=== PATIENT | male | born 1950 | race Caucasian/White ===

== ENCOUNTER → 2017-11-06 | Outpatient (CLI) | payer BC ==
[2017-11-06 12:26] LABS: HGB 15.1 gm/dL (13.0-17.5); MCH 29.8 pg (25.0-35.0); MCHC 33.6 g/dL (31.0-37.0); MCV 88.7 fL (80.0-100.0); Mean Platelet Volume 7.7; Platelet Count 217 k/uL (150-450); RBC 5.07 m/uL (4.30-5.90); RDW 12.9 % (11.5-15.5); WBC 7.1 k/uL (3.8-10.6)
[2017-11-06 12:29] LABS: ALT 45 U/L (21-72); AST 45 U/L (17-59); Albumin 4.4 g/dL (3.5-5.0); Alkaline Phosphatase 54 U/L (38-126); Anion Gap 11 mmol/L; Blood Urea Nitrogen 13 mg/dL (9-20); Calcium 9.3 mg/dL (8.4-10.2); Carbon Dioxide 24 mmol/L (22-30); Chloride 106 mmol/L (98-107); Cholesterol 140 mg/dL (<200); Glucose 110 mg/dL (74-99); HDL Cholesterol 29 mg/dL (40-60); LDL Cholesterol,Calculated 98 mg/dL (0-99); Potassium 4.4 mmol/L (3.5-5.1); Sodium 141 mmol/L (137-145); Total Bilirubin 0.7 mg/dL (0.2-1.3); Total Protein 6.8 g/dL (6.3-8.2); Triglycerides 67 mg/dL (<150)
[2017-11-06 12:54] LABS: Prostate Specific Antigen 0.78 ng/mL (0.00-4.00)
[2017-11-06 16:40] LABS: Folate, Serum 18.8 ng/mL
[2017-11-06 16:56] LABS: Hepatitis C IgG Antibody Non-Reactive (Non-Reactive)
== END | disposition home or self-care (01) ==
LOC: LABWHC1 11:49
PROVIDERS: ATTEND Internal Medicine
DX: Z13.228 Encounter for screening for other metabolic disorders (principal); Z13.220 Encounter for screening for lipoid disorders; Z12.5 Encounter for screening for malignant neoplasm of prostate; Z13.0 Encounter for screening for diseases of the blood and blood-forming organs and certain disorders involving the immune mechanism; Z11.59 Encounter for screening for other viral diseases
CPT/HCPCS: 36415; 80053; 80061; 82607; 82746; 83540; 83550; 84153; 85027; 86803

== ENCOUNTER → 2018-05-21 | Outpatient (CLI) | payer MEDICARE | LOC: LABWHC1 08:34 | PROVIDERS: ATTEND Internal Medicine Cardiovascular Disease | DX: I25.10 Atherosclerotic heart disease of native coronary artery without angina pectoris (principal) | CPT/HCPCS: 36415; 83704 ==

== ENCOUNTER 2020-02-17 10:53 | Day surgery (SDC) | payer MEDICARE ==
[2020-02-12 15:25] VITALS: BMI 30.5
[~2020-02-17 10:53] MED LIST: ALPRAZolam 0.25 MG TAB PO PRN; ALPRAZolam 0.5 MG TAB PO PRN; ASPIRIN 325 MG TAB PO STA; NITROGLYCERIN SL TABS 0.4 MG TAB SUBLINGUAL PRN; SODIUM CHLORIDE 0.9% 1,000 ML in EMPTY BAG 1 BAG IV ONE
[2020-02-17] MEDS ORDERED: SODIUM CHLORIDE 0.9% 1,000 ML IV ONE (11:05)
[2020-02-17 11:30] LABS: Glucose,Whole Blood 121 mg/dL (75-99)
[2020-02-17 11:43] LABS: Basophils # (A) 0.1 k/uL (0-0.2); Basophils % (A) 1 %; Eosinophils # (A) 0.2 k/uL (0-0.7); Eosinophils % (A) 2 %; HCT 42.9 % (39.0-53.0); HGB 14.6 gm/dL (13.0-17.5); Lymphocytes % (A) 21 %; MCH 30.7 pg (25.0-35.0); MCV 90.2 fL (80.0-100.0); Mean Platelet Volume 7.6; Monocytes # (A) 0.5 k/uL (0-1.0); Monocytes % (A) 5 %; Neutrophils % (A) 71 %; Platelet Count 206 k/uL (150-450); RBC 4.75 m/uL (4.30-5.90); RDW 12.6 % (11.5-15.5); WBC 9.9 k/uL (3.8-10.6)
[2020-02-17 11:49] VITALS: RESP 18
[2020-02-17 12:19] LABS: African American GFR (CKD) >90 (>60 ml/min/1.73 sqM); Anion Gap 6 mmol/L; Blood Urea Nitrogen 10 mg/dL (9-20); Calcium 9.2 mg/dL (8.4-10.2); Carbon Dioxide 25 mmol/L (22-30); Chloride 106 mmol/L (98-107); Glucose 123 mg/dL (74-99); Non-African American GFR(CKD) 85 (>60 ml/min/1.73 sqM); Potassium 4.5 mmol/L (3.5-5.1); Sodium 137 mmol/L (137-145)
[2020-02-17] MEDS ORDERED: fentaNYL (PF) 50 MCG/ML 2 ML AMP ONE (12:58)
[2020-02-17] MEDS ORDERED: VERAPAMIL 2.5 MG/ML 2 ML AMP ONE (12:58)
[2020-02-17] MEDS ORDERED: LIDOCAINE 1% INJ 10MG/ML (20 ML MDV) ONE (12:58)
[2020-02-17] MEDS ORDERED: fentaNYL (PF) 50 MCG/ML 2 ML AMP IVP ONE (13:23)
[2020-02-17] MEDS ORDERED: MIDAZOLAM 2 MG/2 ML VIAL IVP ONE (13:23)
[2020-02-17] MEDS ORDERED: LIDOCAINE 1% INJ 10MG/ML (20 ML MDV) SQ ONE (13:25)
[2020-02-17] MEDS ORDERED: VERAPAMIL SYRINGE (5 MG/10 ML) INTRAARTER ONE (13:27)
[2020-02-17] MEDS ORDERED: HEPARIN SODIUM 1,000 UN/ML (10ML VL) IV ONE (13:31)
[2020-02-17] MEDS ORDERED: IOPAMIDOL-370 125ML BTL INJ ONE (13:51)
[2020-02-17] MEDS ORDERED: RX INFO: IV CONTRAST WAS GIVEN 1 EACH MISC MISCELLANE PRN (13:58)
--- NOTE | 2020-02-17 16:17 | P.CARDCATH ---
Date of Procedure: 02/17/20 Description of Procedure: PROCEDURES PERFORMED: bilateral coronary angiography INDICATION: Class III angina HISTORY: Patient is a pleasant 69-year-old male with history of coronary artery disease status post PCI in 2006 to the RCA, prior anemia, mildly reduced ejection fraction with most recent echo showing ejection fraction approximately 40%, [id number] mitral regurgitation who has been having new onset of chest pressure with fairly minimal activities over the last few months. He did have prior history of GI bleed in 2016 and non-ST at that time with heart catheterization showing RCA disease however no intervention performed due to acute bleed. He had been very doing fairly well until this new onset of angina. He was therefore recommended for heart catheterization. CONSENT:I have discussed the risks, benefits and alternative therapies for the above-mentioned procedure and for both sedation/analgesia as well as necessary blood product administration, if indicated, as they pertain to this patient. The patient has indicated understanding and acceptance of the risks and procedures discussed. PROCEDURE: After the risks, benefits and alternatives of the above mentioned procedure explained in detail with the patient, informed consent was obtained. Patient was taken to the catheterization lab and prepped and draped in usual fashion. 1% lidocaine was used to anesthetize the right radial artery. A 6- Palauan sheath was placed in the right radial artery using modified Seldinger technique. Left coronary angiography was performed with a 5-Palauan JL 3.5 catheter and right coronary angiography was performed with a 5-Palauan JR5 catheter in various views. The right radial sheath was removed and a TR band was placed with hemostasis achieved. The patient tolerated the procedure well. Patient was transported back to the post catheterization holding area in stable condition. Conscious Sedation: Patient was monitored under the direct supervision of vision of myself for conscious sedation using Versed and fentanyl for a total duration of 32 minutes HEMODYNAMICS: Aorta: 132/72. SELECTIVE CORONARY ARTERIOGRAPHY: LEFT MAIN: The left main is extremely short with nearly separate ostia however with subselective imaging and review of prior films there does appear to be a short left main. There is heavily calcified 70-80% left main stenosis involving both the LAD and circumflex origin. LEFT ANTERIOR DESCENDING CORONARY ARTERY: LAD is a large caliber vessel which wraps around to the apex. There is in origin heavily calcified proximal LAD 90- 95% stenosis. There is dampening with a 5-Palauan catheter. There is a moderate to large caliber diagonal 1 branch with mid 30% stenosis. The mid LAD has tandem 20% and then 30% mid and distal stenoses and otherwise minor luminal irregularities. LEFT CIRCUMFLEX CORONARY ARTERY: Left circumflex is a moderate to large caliber vessel heavily calcified ostial 80-90% stenosis. There is a high OM1 which is moderate caliber and with mild luminal irregularities. 1 to his moderate caliber without significant stenosis. OM3 has a proximal 50% stenosis. RIGHT CORONARY ARTERY: The right coronary artery is a moderate caliber vessel which gives off a PDA and PLV branch and is the dominant vessel. There is a long proximal to mid RCA stent with a 70% proximal in-stent stenosis. There are minor luminal irregularities of the remainder of the PDA and PLV. FINAL IMPRESSION: 1. Multivessel coronary artery disease as described above with nearly separate LAD and circumflex origin however with 90% stenosis of LAD origin and 80 and 90% circumflex origin. There does appear to be a common left main. OM 3 with 50% stenosis. RCA proximal 70% in-stent stenosis. PLAN: 1. Aggressive risk factor modification per most recent ACC/AHA guidelines. 2. Given heavily calcified ostial LAD and circumflex disease, would recommend CABG. There does appear to be a common left main which makes stenting of the origin a true bifurcation lesion. Stop Plavix and cardiothoracic surgery evaluation. Patient without unstable symptoms and appears to be stable coronary artery disease and we will discharge home with outpatient follow-up. 3. Follow-up in the office in 1-2 weeks.
[2020-02-17 16:38] LABS: Appearance,Urine Clear (Clear); Bilirubin,Urine Negative (Negative); Blood,Urine Negative (Negative); Color,Urine Light Yellow; Glucose,Urine (UA) Negative (Negative); Ketones,Urine Negative (Negative); Leukocyte Esterase,Urine Negative (Negative); Nitrite,Urine Negative (Negative); Protein,Urine Negative (Negative); Specific Gravity,Urine 1.032 (1.001-1.035); Urobilinogen,Urine <2.0 mg/dL (<2.0)
--- NOTE | 2020-02-17 17:11 | P.GSCN ---
History of Present Illness Consult date: 02/17/20 Reason for Consult: Unstable angina, multivessel coronary artery disease evaluation for myocardial revascularization surgery. Requesting physician: Adrian Hensley History of present illness: This is a 69-year-old gentleman who is followed by Dr. Blanquita Seth on an outpatient basis. He has a past medical history significant for a coronary artery disease,myocardial infarction in 2006 with [address] prior stent pl acement, hypertension, dyslipidemia, GI bleed with severe anemia, family history of coronary artery disease less than 60 years of age with his brother passing away in his early 40s due to myocardial infarction, remote history of nicotine dependence quit smoking in 1983, type 2 diabetes mellitus with recent hemoglobin A1c of 6.4%, and occasional marijuana use. Recently, the patient has had complaints of chest pressure which is relieved with rest, shortness of breath with activity and episodes of nausea and dizziness with the episodes of chest pressure. He denies any recent fever, chills, edema, orthopnea, palpitations presyncope or syncope. Due to the patient's history of coronary artery di seaseand recent symptoms a 2-D echocardiogram [facility] which demonstrated his left ventricle to be mildly dilated with moderately decreased systolic function, an ejection fraction of 40% with mild concentric hypertrophy, mild to moderate mitral valve regurgitation directed posteriorly, trace aortic valve regurgitation and mild to moderate tricuspid valve regurgitation. subsequently he was scheduled for a cardiac catheterization, and today 02/17/2020 Dr. Hensley performed the cardiac catheterization which showed a 70-80% stenosis to his left main involving both the origin of the left anterior descending coronary artery and circumflex coronary artery, a 90-95% stenosis to his proximal left anterior descending coronary artery, a 30% stenosis to his mid left anterior descending coronary artery, a 20-30% stenosis to his distal left anterior descending coronary a rtery, an 80-90% stenosis to his circumflex coronary artery, a 50% stenosis to his obtuse marginal #3 coronary artery and a 70% proximal in-stent stenosis to his right coronary artery. Due to the findings on the heart catheterization a consult was placed to Dr. Ramos Sanz from cardiothoracic surgery for further evaluation and treatment recommendations. Review of Systems A 14 point review of systems was completed and was negative except as mentioned in the HPI. Past Medical History Past Medical History: Coronary Artery Disease (CAD), Cancer, Diabetes Mellitus, GI Bleed, Hyperlipidemia, Hypertension, Myocardial Infarction ([place]) Additional Past Medical History / Comment(s): hx ulcer/GI bleed 2014, skin cancer Last Myocardial Infarction Date:: 06/2006 History of Any Multi-Drug Resistant Organisms: None Reported Past Surgical History: Heart Catheterization, Heart Catheterization With Stent, Hernia Repair, Orthopedic Surgery, Tonsillectomy Additional Past Surgical History / Comment(s): 3 cardiac STENTS, skin cancer removed from nose, surgery fx rt foot, Past Anesthesia/Blood Transfusion Reactions: Postoperative Nausea & Vomiting (PONV) Date of Last Stent Placement:: 06/13/2006 Past Psychological History: No Psychological Hx Reported Smoking Status: Former smoker (quit smoking in 1983) Past Alcohol Use History: None Reported Past Drug Use History: Marijuana (occasional marijuana use) - Past Family History Brother(s) Additional Family Medical History / Comment(s): pacemaker, one of his brothers in his early 40s from myocardial infarction. Father Family Medical History: Cancer Additional Family Medical History / Comment(s): stomach CA Mother Family Medical History: Congestive Heart Failure (CHF) Medications and Allergies Home Medications Medication Instructions Recorded Confirmed Type Losartan Potassium 100 mg PO DAILY 04/27/15 02/17/20 History amLODIPine [Norvasc] 5 mg PO BID 04/27/15 02/17/20 History Ferrous Sulfate [Iron (65 MG 65 mg PO DAILY 06/16/15 02/17/20 History Elemental)] Pantoprazole Sodium [Protonix] 40 mg PO DAILY 06/21/15 02/17/20 History Aspirin [Adult Low Dose Aspirin EC] 81 mg PO HS 02/12/20 02/17/20 History Ezetimibe [Zetia] 10 mg PO HS 02/12/20 02/17/20 History Isosorbide Mononitrate [Isosorbide 30 mg PO DAILY 02/12/20 02/17/20 History Mononitrate ER] Metoprolol Succinate [Toprol XL] 100 mg PO DAILY 02/12/20 02/17/20 History Rosuvastatin Calcium [Crestor] 20 mg PO HS 02/12/20 02/17/20 History metFORMIN HCL [Glucophage] 500 mg PO BID 02/12/20 02/17/20 History Allergies Allergy/AdvReac Type Severity Reaction Status Date / Time No Known Allergies Allergy Verified 02/12/20 15:12 Surgical - Exam Vital Signs Temp Pulse Resp BP Pulse Ox 98.2 F 63 18 165/72 96 02/17/20 11:45 02/17/20 11:45 02/17/20 11:45 02/17/20 11:45 02/17/20 11:45 - General well developed, well nourished, no distress, no pain, obese - Eyes PERRL, normal ocular movement - ENT normal pinna, normal nares, normal mucosa, no hearing loss, no congestion - Neck neck is supple, no JVD. no masses, no bruits, trachea midline, no venous distension - Respiratory lung sounds essentially clear throughout. No wheezes, rhonchi or crackles. Respirations are symmetrical and nonlabored. - Cardiovascular regular rhythm and rate. S1 and S2 present, negative for S3, gallop or murmur. - Abdomen abdomen is soft, nontender and nondistended. Active bowel sounds present all 4 abdominal quadrants. - Genitourinary deferred - Rectum deferred - Integumentary no rash, no growths, no abnormal pigmentation - Neurologic normal coordination, normal sensation - Musculoskeletal normal gait, normal posture - Psychiatric oriented to time, oriented to person, oriented to place, speech is normal, memory intact Results - Labs 02/17/20 11:30 02/17/20 11:48 Abnormal Lab Results - Last 24 Hours (Table) 02/17/20 02/17/20 Range/Units 11:20 11:48 Glucose 123 H (74-99) mg/dL POC Glucose (mg/dL) 121 H (75-99) mg/dL Diabetes panel 02/17/20 Range/Units 11:48 Sodium 137 (137-145) mmol/L Potassium 4.5 (3.5-5.1) mmol/L Chloride 106 (98-107) mmol/L Carbon Dioxide 25 (22-30) mmol/L BUN 10 (9-20) mg/dL Creatinine 0.92 (0.66-1.25) mg/dL Glucose 123 H (74-99) mg/dL Calcium 9.2 (8.4-10.2) mg/dL Calcium panel 02/17/20 Range/Units 11:48 Calcium 9.2 (8.4-10.2) mg/dL Pituitary panel 02/17/20 Range/Units 11:48 Sodium 137 (137-145) mmol/L Potassium 4.5 (3.5-5.1) mmol/L Chloride 106 (98-107) mmol/L Carbon Dioxide 25 (22-30) mmol/L BUN 10 (9-20) mg/dL Creatinine 0.92 (0.66-1.25) mg/dL Glucose 123 H (74-99) mg/dL Calcium 9.2 (8.4-10.2) mg/dL Adrenal panel 02/17/20 Range/Units 11:48 Sodium 137 (137-145) mmol/L Potassium 4.5 (3.5-5.1) mmol/L Chloride 106 (98-107) mmol/L Carbon Dioxide 25 (22-30) mmol/L BUN 10 (9-20) mg/dL Creatinine 0.92 (0.66-1.25) mg/dL Glucose 123 H (74-99) mg/dL Calcium 9.2 (8.4-10.2) mg/dL - Imaging Additional studies: cardiac catheterization and 2-D echocardiogram report reviewed and discussed with Dr. Ramos Sanz. Assessment and Plan Assessment: 1. Multivessel coronary artery disease 2. Unstable angina 3. Dyslipidemia 4. Hypertension 5. Diabetes mellitus type 2, recent hemoglobin A1c 6.4% 6. History of GI bleed 7. Remote history of tobacco abuse quit smoking in 1983 8. Occasional marijuana use. Plan: The patient was seen and examined at his bedside in the extended stay unit. His chart and diagnostics were reviewed. His case was discussed in detail with Dr. Ramos Sanz from cardiothoracic surgery. The usual preoperative course of myocardial revascularization surgery was discussed in detail with patient, and his present at his bedside. Their questions were answered to the best of my ability. Preoperative testing was initiated as well as preoperative teaching, the patient was given a binder heart surgery: Road to a healthy heart for further teaching. Continue with aggressive risk factor modification per recent ACC/AHA guidelines, continue to optimize medical management with aspirin, statinand beta jigna. Continue to hold Plavix at this time for evaluation for possible myocardial revascularization surgery. He will be scheduled to follow-up with Dr. Ramos Sanz in the office tomorrow 02/18/2020 at 4 PM. During his office visit we will obtain a 5 m walk test. Once his preoperative testing has been completed a STS risk score will be calculated and discussed with the patient by Dr. Sanz. Thank you Dr. Hensley for this consult and we look forward to working with you in the care of this patient. Time with Patient: Greater than 30
[2020-02-17 17:45] LABS: Glucose,Whole Blood 98 mg/dL (75-99)
[2020-02-17 18:07] VITALS: PULSE 56; TEMP 98.1
[2020-02-17 18:51] VITALS: BP 153/74
[2020-02-17 18:51] LABS: ALT 41 U/L (4-49); AST 38 U/L (17-59); African American GFR (CKD) >90 (>60 ml/min/1.73 sqM); Albumin 4.6 g/dL (3.5-5.0); Alkaline Phosphatase 56 U/L (38-126); Anion Gap 7 mmol/L; Blood Urea Nitrogen 10 mg/dL (9-20); Calcium 9.5 mg/dL (8.4-10.2); Carbon Dioxide 26 mmol/L (22-30); Chloride 105 mmol/L (98-107); Glucose 127 mg/dL (74-99); Non-African American GFR(CKD) 81 (>60 ml/min/1.73 sqM); Partial Thromboplastin Time 25.2 sec (22.0-30.0); Potassium 4.6 mmol/L (3.5-5.1); Prothrombin Time 10.5 sec (9.0-12.0); Sodium 138 mmol/L (137-145); Total Bilirubin 0.6 mg/dL (0.2-1.3); Total Protein 7.4 g/dL (6.3-8.2)
[2020-02-17 19:34] LABS: Cholesterol 120 mg/dL (<200); HDL Cholesterol 40 mg/dL (40-60); LDL Cholesterol,Calculated 56 mg/dL (0-99); Triglycerides 119 mg/dL (<150)
[2020-02-17 19:52] LABS: T4, Free (Free Thyroxine) 0.81 ng/dL (0.78-2.19)
[2020-02-18 02:30] LABS: Hemoglobin A1C 6.4 % (4.0-6.0)
[2020-02-18 03:54] LABS: Hepatitis A Antibody IgM Non-Reactive (Non-Reactive); Hepatitis B Core IgM Non-Reactive (Non-Reactive); Hepatitis B Surface Antigen Non-Reactive (Non-Reactive); Hepatitis C IgG Antibody Non-Reactive (Non-Reactive)
--- NOTE | 2020-02-18 07:39 | US ---
EXAMINATION TYPE: US carotid duplex BILAT DATE OF EXAM: 02/17/2020 COMPARISON: NONE CLINICAL HISTORY: Pre-Op Cardiac Surgery,Ankle Brachial Index (KANNAN) . Pre-Op CABG EXAM MEASUREMENTS: RIGHT: Peak Systolic Velocity (PSV) cm/sec ----- Right CCA: 94.8 ----- Right ICA: 126 ----- Right ECA: 195 ICA/CCA ratio: 1.3 RIGHT: End Diastole cm/sec ----- Right CCA: 14.3 ----- Right ICA: 26.5 ----- Right ECA: 0.0 LEFT: Peak Systolic Velocity (PSV) cm/sec ----- Left CCA: 93.0 ----- Left ICA: 111 ----- Left ECA: 139 ICA/CCA ratio: 1.2 LEFT: End Diastole cm/sec ----- Left CCA: 7.3 ----- Left ICA: 21.3 ----- Left ECA: 0.0 VERTEBRALS (direction of flow): Right Vertebral: Antegrade Left Vertebral: Antegrade Rhythm: Normal Mild atheromatous plaquing is present. There is borderline elevation of the right internal carotid ar charlie velocity. Turbulent flow is noted on Doppler waveforms. Some intimal thickening and turbulent fl ow is present on the left. IMPRESSION: 1. Mild narrowing between 50 and 69% proximal right internal carotid artery Criteria for Assigning % of Stenosis / Diameter reduction (Estimation based on the indirect measurements of the internal carotid artery velocities (ICA PSV). 1. Normal (no stenosis)=ICA PSV < 125 cm/s: ratio < 2.0: ICA EDV<40 cm/s. 2. Less than 50% stenosis=ICA PSV < 125 cm/s: ratio < 2.0: ICA EDV<40 cm/s. 3. 50 to 69% stenosis=ICA PSV of 125 to 230 cm/s: ration 2.0 ? 4.0: ICA EDV 40-100 cm/s. 4. Greater than 70% stenosis to near occlusion= ICA PSV > 230 cm/s: ratio > 4.0: ICA EDV > 100 cm/s. 5. Near occlusion= ICA PSV velocities may be low or undetectable: variable ratio and ICA EDV. 6. Total occlusion=unable to detect flow.
--- NOTE | 2020-02-18 10:10 | XR ---
EXAMINATION TYPE: XR chest 2V DATE OF EXAM: 02/17/2020 CLINICAL HISTORY: Preoperative cardiac surgery TECHNIQUE: Frontal and lateral views of the chest are obtained. COMPARISON: 04/27/2015 chest radiograph FINDINGS: The cardiomediastinal silhouette is within normal limits for size. Pulmonary vasculature i s normal. There is no focal air space opacity, pleural effusion, or pneumothorax seen. Degenerative c hanges of the spine. IMPRESSION: No acute cardiopulmonary process.
--- NOTE | 2020-02-24 12:57 | P.ARTDOP ---
Arterial Doppler LOWER EXTREMITY ARTERIAL DOPPLER: DATE OF SERVICE: 02/17/2020 Reason for study: Preop CABG. Doppler waveforms: Multiphasic throughout. Pulse volume recording: []. Pressure gradients: None. Ankle-brachial indices: Greater than 1 bilaterally. Toe brachial indices: [] on the right, [] on the left Impression: Normal study.
--- NOTE | 2020-02-24 12:59 | P.VSCSTY ---
Greater Saphenous Vein Mapping This is bilateral lower extremity greater saphenous vein mapping. Date of service: 02/17/2020 Vein quality and ultrasound appearance: We see no intraluminal thrombus or wall changes. Vein size groin right : 4.3 x 5.1 groin left: 4.3 x 4.5 High thigh right: 3.9 x 4.0 high thigh left: 2.9 x 2.7 Mid thigh right: 3.1 x 3.3 mid thigh left: 2.1 x 1.9 Above-knee right: 3.1 x 3.3 above- knee left: 1.6 x 1.1 Below knee right: 3.0 x 2.8 below-knee left: 2.2 x 1.7 Mid calf right: 2.9 x 2.7 mid calf left: 1.8 x 3.0 Ankle right: 2.9 x 3.1 ankle left: 2.0 x 2.3 Impression: Usable greater saphenous vein on the right. The upper thigh may be usable on the left and the very distal lower leg on the left may be usable. Clinical correlation recommended.
--- NOTE | 2020-03-11 15:39 | CONS ---
CONSULTATION ADDENDUM: 02/17/2020 Patient was examined. I agree with the above findings from my nurse practitioner. MMODL / IJN: [id number] /
--- NOTE | 2020-03-21 15:01 | CONS ---
CONSULTATION DATE OF CONSULTATION: 02/17/20 Patient was examined and I agree with the above findings from my nurse practicer. MMODL / IJN: [id number] / Job#: [id number]
== END 2020-02-17 18:53 | disposition home or self-care (01) ==
LOC: CATHCVL 10:53 → 3NCARDOBS 18:05 → CATHCVL 18:53
PROVIDERS: ATTEND Internal Medicine
DX: I25.110 Atherosclerotic heart disease of native coronary artery with unstable angina pectoris (principal); T82.855A Stenosis of coronary artery stent, initial encounter; I25.84 Coronary atherosclerosis due to calcified coronary lesion; I10 Essential (primary) hypertension; I49.8 Other specified cardiac arrhythmias; I08.3 Combined rheumatic disorders of mitral, aortic and tricuspid valves; I44.7 Left bundle-branch block, unspecified; E11.8 Type 2 diabetes mellitus with unspecified complications; E78.2 Mixed hyperlipidemia; Z87.891 Personal history of nicotine dependence; I25.2 Old myocardial infarction; Z87.19 Personal history of other diseases of the digestive system; Z82.49 Family history of ischemic heart disease and other diseases of the circulatory system; Z85.828 Personal history of other malignant neoplasm of skin; Z80.0 Family history of malignant neoplasm of digestive organs; Z79.84 Long term (current) use of oral hypoglycemic drugs; Z79.82 Long term (current) use of aspirin; Z79.899 Other long term (current) drug therapy
CPT/HCPCS: 94150; 93454; 84439; 80061; 80053; 80074; 84443; 83735; 85025; 85610; 85730; 81003; 87070; 83036; 71046; 93970; 93922; 93880; C1769; C1894; J2250; J2001; J3010; J1644; Q9967; 80048

== ENCOUNTER → 2020-02-19 | Outpatient (CLI) | payer MEDICARE | END | disposition home or self-care (01) | LOC: LABWHC1 13:31 | PROVIDERS: ATTEND Surgery | DX: Z20.828 Contact with and (suspected) exposure to other viral communicable diseases (principal) | CPT/HCPCS: U0003; C9803 ==

== ENCOUNTER 2020-02-24 05:32 | Inpatient (IN) | payer MEDICARE ==
--- NOTE | 2020-02-23 13:18 | P.PN ---
Progress Note - Text Progress Note Date: 02/23/20 STS risk score was calculated and discussed with the patient by Dr. Ramos Sanz.
[~2020-02-24 05:32] MED LIST changes: +ALBUMIN HUMAN 25% 50 ML IV ONE; -ALPRAZolam 0.25 MG TAB PO PRN; -ALPRAZolam 0.5 MG TAB PO PRN; -ASPIRIN 325 MG TAB PO STA; +CLEVIDIPINE BUTYRATE 25 MG in EMPTY BAG 1 BAG IV ONE; +DEXTROSE 5% IN WATER 1,000 ML with POTASSIUM CHLORIDE 110 MEQ, MAGNESIUM SULFATE 16 MEQ... IV ONE; +DEXTROSE 5% IN WATER 1,000 ML with POTASSIUM CHLORIDE 25 MEQ, SODIUM CHLORIDE 2.5MEQ/ML... IRRIGATION ONE; +DILTIAZEM 125 MG in SODIUM CHLORIDE 0.9% 100 ML IV ONE; +HEPARIN SODIUM 1,000 UN/ML (10ML VL) IV ONE; +HEPARIN SODIUM,PORCINE 5,000 UNIT in SODIUM CHLORIDE 0.9% 500 ML 500 ML IV ONE; +INSULIN REGULAR 100 UNIT in SODIUM CHLORIDE 0.9% 100 ML IV ONE; +LACTATED RINGERS 1,000 ML IV ONE; +MAGNESIUM SULFATE MG 500 MG/ML IV ONE; -NITROGLYCERIN SL TABS 0.4 MG TAB SUBLINGUAL PRN; +NITROGLYCERIN-D5W PMX 25 MG/250 ML BTL IV ONE; +NITROGLYCERIN-D5W PMX 50 MG in DEXTROSE/WATER 1 250ML.BAG IV ONE; +NOREPINEPHRINE 4 MG in SODIUM CHLORIDE 0.9% 250 ML IV ONE; +PAPAVERINE 360 MG in SODIUM CHLORIDE 0.9% 90 ML IV ONE; +PHENYLEPHRINE 40 MG in SODIUM CHLORIDE 0.9% 250 ML IV ONE; +PROTAMINE SULFATE 250 MG in EMPTY BAG 1 BAG IV ONE; +SODIUM BICARB 8.4% 50 ML SYR (1 MEQ/ML) IV ONE; +SODIUM CHLORIDE 0.9% 1,000 ML IV ONE; -SODIUM CHLORIDE 0.9% 1,000 ML in EMPTY BAG 1 BAG IV ONE; +TRANEXAMIC ACID 2,000 MG in SODIUM CHLORIDE 0.9% 80 ML IV ONE; +ceFAZolin 1,000 MG in SODIUM CHLORIDE 0.9% IRRIGATIO 1,000 ML IRRIGATION ONE; +ceFAZolin 2,000 MG in SODIUM CHLORIDE 0.9% 30 ML IVPB ONE; +propofoL 1,000 MG/100 ML VIAL IV ONE
[2020-02-24] MEDS ORDERED: CALCIUM CHLORIDE 100 MG/ML 10 ML SYRINGE IV ONE (06:00)
[2020-02-24] MEDS ORDERED: CHLORHEXIDINE GLUCONATE 15 ML CUP MUCOUS MEM ONE (06:00)
[2020-02-24] MEDS ORDERED: PHENYLEPHRINE 10 MG/ML VIAL IV ONE (06:00)
[2020-02-24] MEDS ORDERED: PROTAMINE SULFATE 10 MG/ML 25 ML VIAL IV ONE ×2 (06:00→07:31)
[2020-02-24] MEDS ORDERED: ATORVASTATIN 10 MG TAB PO ONE (06:00)
[2020-02-24] MEDS ORDERED: METOPROLOL TARTRATE 12.5 MG TAB PO ONE (06:00)
[2020-02-24] MEDS ORDERED: MANNITOL 25% 12.5 GM/50 ML VIAL IV ONE (06:00)
[2020-02-24] MEDS ORDERED: ALBUMIN HUMAN 5% 500 ML IVPB ONE (06:00)
[2020-02-24] MEDS ORDERED: ASPIRIN 325 MG TAB PO ONE (06:00)
[2020-02-24 06:27] LABS: Glucose,Whole Blood 105 mg/dL (75-99)
[2020-02-24] MEDS ORDERED: fentaNYL (PF) 50 MCG/ML 2 ML AMP ONE (07:31)
[2020-02-24] MEDS ORDERED: LIDOCAINE 2% SYG (PF) 100 MG/5 ML ONE (07:31)
[2020-02-24] MEDS ORDERED: INSULIN REGULAR 100 UNIT/ML VIAL ONE (07:31)
[2020-02-24] MEDS ORDERED: ELECTROLYTE-R (PH 7.4) 1,000 ML IV.SOLN IV ONE (07:31)
[2020-02-24] MEDS ORDERED: MIDAZOLAM 2 MG/2 ML VIAL ONE (07:31)
[2020-02-24] MEDS ORDERED: SODIUM CHLORIDE 0.9% IRRIG 1,000 ML BTL IRRIGATION ONE (07:31)
[2020-02-24] MEDS ORDERED: NITROGLYCERIN-D5W PMX 50 MG/250 ML BOTTLE IV ONE (07:31)
[2020-02-24] MEDS ORDERED: fentaNYL (PF) 50 MCG/ML 50 ML VIAL ONE (07:31)
[2020-02-24] MEDS ORDERED: SODIUM CHLORIDE 0.9% 250 ML BAG ONE (07:31)
[2020-02-24] MEDS ORDERED: MAGNESIUM SULFATE 4 MEQ/ML 10ML VIAL ONE (07:31)
[2020-02-24] MEDS ORDERED: HEPARIN SODIUM,PORCINE 10,000 UNIT/ML 1 ML VIAL ONE (07:31)
[2020-02-24] MEDS ORDERED: PHENYLEPHRINE-0.9% NACL SYG 1 MG/10 ML SYRINGE ONE (07:31)
[2020-02-24] MEDS ORDERED: TRANEXAMIC ACID 1,000 MG/10 ML VIAL ONE (07:31)
[2020-02-24] MEDS ORDERED: VECURONIUM 10 MG VIAL IV ONE (07:31)
[2020-02-24] MEDS ORDERED: SUCCINYLCHOLINE CHLORIDE 100 MG/5 ML SYR IV ONE (07:31)
[2020-02-24] MEDS ORDERED: PROPOFOL 10 MG/ML 20 ML VIAL IV ONE (07:31)
[2020-02-24 08:30] LABS: ABG Base Excess -0.4 mmol/L; ABG Glucose Whole Blood 132 mg/dL (75-99); ABG HCO3 25 mmol/L (21-25); ABG Hematocrit 41 % (34.0-46.0); ABG Ionized Calcium 4.8 mg/dL (4.5-5.3); ABG PCO2 44 mmHg (35-45); ABG PH 7.37 (7.35-7.45); ABG PO2 153 mmHg (83-108); ABG Potassium Whole Blood 4.2 mmol/L (3.4-4.5); ABG Sodium Whole Blood 141 mmol/L (135-146); ABG TCO2 26 mmol/L (19-24)
[2020-02-24 10:30] LABS: ABG Base Excess -0.6 mmol/L; ABG Glucose Whole Blood 107 mg/dL (75-99); ABG HCO3 26 mmol/L (21-25); ABG Hematocrit 39 % (34.0-46.0); ABG Ionized Calcium 4.8 mg/dL (4.5-5.3); ABG Lactic Acid Whole Blood 0.7 mmol/L (0.5-1.6); ABG Oxygen Saturation 99.5 % (94-97); ABG PCO2 48 mmHg (35-45); ABG PH 7.34 (7.35-7.45); ABG PO2 193 mmHg (83-108); ABG Potassium Whole Blood 3.9 mmol/L (3.4-4.5); ABG Sodium Whole Blood 141 mmol/L (135-146); ABG TCO2 27 mmol/L (19-24)
[2020-02-24 11:48] LABS: ABG Base Excess -0.1 mmol/L; ABG Glucose Whole Blood 158 mg/dL (75-99); ABG HCO3 25 mmol/L (21-25); ABG Hematocrit 32 % (34.0-46.0); ABG Ionized Calcium 4.4 mg/dL (4.5-5.3); ABG Lactic Acid Whole Blood 1.1 mmol/L (0.5-1.6); ABG Oxygen Saturation 99.7 % (94-97); ABG PCO2 42 mmHg (35-45); ABG PH 7.38 (7.35-7.45); ABG PO2 267 mmHg (83-108); ABG Potassium Whole Blood 4.9 mmol/L (3.4-4.5); ABG Sodium Whole Blood 137 mmol/L (135-146); ABG TCO2 26 mmol/L (19-24)
[2020-02-24 12:25] LABS: ABG Base Excess -1.3 mmol/L; ABG Glucose Whole Blood 148 mg/dL (75-99); ABG HCO3 25 mmol/L (21-25); ABG Hematocrit 30 % (34.0-46.0); ABG Ionized Calcium 4.4 mg/dL (4.5-5.3); ABG Lactic Acid Whole Blood 1.1 mmol/L (0.5-1.6); ABG Oxygen Saturation 99.7 % (94-97); ABG PCO2 46 mmHg (35-45); ABG PH 7.34 (7.35-7.45); ABG PO2 225 mmHg (83-108); ABG Potassium Whole Blood 4.4 mmol/L (3.4-4.5); ABG Sodium Whole Blood 136 mmol/L (135-146); ABG TCO2 26 mmol/L (19-24)
[2020-02-24 12:56] LABS: ABG Base Excess -0.7 mmol/L; ABG Glucose Whole Blood 129 mg/dL (75-99); ABG HCO3 24 mmol/L (21-25); ABG Hematocrit 31 % (34.0-46.0); ABG Ionized Calcium 4.4 mg/dL (4.5-5.3); ABG Lactic Acid Whole Blood 1.1 mmol/L (0.5-1.6); ABG Oxygen Saturation 99.7 % (94-97); ABG PCO2 41 mmHg (35-45); ABG PH 7.38 (7.35-7.45); ABG PO2 217 mmHg (83-108); ABG Potassium Whole Blood 4.4 mmol/L (3.4-4.5); ABG Sodium Whole Blood 137 mmol/L (135-146); ABG TCO2 26 mmol/L (19-24)
[2020-02-24 13:26] LABS: ABG Base Excess -0.7 mmol/L; ABG Glucose Whole Blood 132 mg/dL (75-99); ABG HCO3 24 mmol/L (21-25); ABG Hematocrit 30 % (34.0-46.0); ABG Ionized Calcium 4.4 mg/dL (4.5-5.3); ABG Lactic Acid Whole Blood 1.2 mmol/L (0.5-1.6); ABG Oxygen Saturation 99.7 % (94-97); ABG PCO2 41 mmHg (35-45); ABG PH 7.38 (7.35-7.45); ABG PO2 265 mmHg (83-108); ABG Potassium Whole Blood 4.4 mmol/L (3.4-4.5); ABG Sodium Whole Blood 137 mmol/L (135-146); ABG TCO2 26 mmol/L (19-24)
[2020-02-24] MEDS ORDERED: IPRATROPIUM-ALBUTEROL 3 ML NEB INHALATION PRN (15:17)
[2020-02-24] MEDS ORDERED: Potassium Replacement Protocol 1 EACH MISC MISCELLANE PRN (15:17)
[2020-02-24] MEDS ORDERED: ONDANSETRON 4 MG/2 ML VIAL IVP PRN (15:17)
[2020-02-24] MEDS ORDERED: Magnesium Replacement Protocol 1 EACH MISC MISCELLANE PRN (15:17)
[2020-02-24] MEDS ORDERED: hydrALAZINE HCL 20 MG/ML 1 ML VIAL IVP PRN (15:17)
[2020-02-24] MEDS ORDERED: METOCLOPRAMIDE 5 MG/ML 2 ML VIAL IVP PRN (15:17)
[2020-02-24] MEDS ORDERED: AMIODARONE 300 MG in DEXTROSE 5% IN WATER 250 ML IV PRN ×2 (15:17)
[2020-02-24] MEDS ORDERED: BENZOCAINE/MENTHOL LOZENG 1 EACH LOZENGE MUCOUS MEM PRN (15:17)
[2020-02-24] MEDS ORDERED: Phosphorus Replacement Protoco 1 EACH MISC MISCELLANE PRN (15:17)
[2020-02-24] MEDS ORDERED: DEXTROSE 5% IN WATER 100 ML with AMIODARONE 150 MG IV PRN (15:17)
[2020-02-24] MEDS ORDERED: AMIODARONE 360 MG in DEXTROSE 5% IN WATER 200 ML IV PRN ×2 (15:17)
[2020-02-24] MEDS ORDERED: MORPHINE SULFATE 2 MG/ML SYRINGE IVP PRN (15:17)
[2020-02-24] MEDS ORDERED: NITROGLYCERIN-D5W PMX 50 MG in DEXTROSE/WATER 1 250ML.BAG IV SCH (15:17)
[2020-02-24] MEDS: CLEVIDIPINE BUTYRATE 25 MG in EMPTY BAG 1 BAG IV SCH (15:40)
[2020-02-24] MEDS: MILRINONE-D5W PMX 20 MG in DEXTROSE/WATER 1 100ML.BAG IV SCH (15:40)
[2020-02-24 16:02] LABS: Glucose,Whole Blood 115 mg/dL (75-99)
[2020-02-24 16:14] LABS: Basophils % (A) 0 %; Eosinophils # (A) 0.1 k/uL (0-0.7); Eosinophils % (A) 1 %; HCT 38.2 % (39.0-53.0); HGB 12.4 gm/dL (13.0-17.5); Lymphocytes # (A) 1.5 k/uL (1.0-4.8); Lymphocytes % (A) 11 %; MCH 30.1 pg (25.0-35.0); MCHC 32.4 g/dL (31.0-37.0); Mean Platelet Volume 8.2; Monocytes # (A) 0.5 k/uL (0-1.0); Monocytes % (A) 4 %; Neutrophils # (A) 11.5 k/uL (1.3-7.7); Neutrophils % (A) 84 %; Platelet Count 153 k/uL (150-450); RBC 4.11 m/uL (4.30-5.90); RDW 13.5 % (11.5-15.5); WBC 13.7 k/uL (3.8-10.6)
[2020-02-24 16:18] LABS: Ionized Calcium 4.9 mg/dL (4.5-5.3)
[2020-02-24] MEDS: DEXMEDETOMIDINE/0.9% NACL(PMX) 400 MCG in EMPTY BAG 1 BAG IV SCH (16:19)
[2020-02-24 16:23] LABS: INR 1.1 (<1.2); Partial Thromboplastin Time 27.6 sec (22.0-30.0); Prothrombin Time 11.4 sec (9.0-12.0)
[2020-02-24 16:24] LABS: ALT 26 U/L (4-49); AST 56 U/L (17-59); African American GFR (CKD) >90 (>60 ml/min/1.73 sqM); Albumin 3.1 g/dL (3.5-5.0); Alkaline Phosphatase 37 U/L (38-126); Anion Gap 3 mmol/L; Blood Urea Nitrogen 12 mg/dL (9-20); Carbon Dioxide 25 mmol/L (22-30); Chloride 109 mmol/L (98-107); Glucose 117 mg/dL (74-99); Magnesium 2.6 mg/dL (1.6-2.3); Non-African American GFR(CKD) 88 (>60 ml/min/1.73 sqM); Potassium 4.4 mmol/L (3.5-5.1); Sodium 137 mmol/L (137-145); Total Bilirubin 1.3 mg/dL (0.2-1.3); Total Protein 5.1 g/dL (6.3-8.2)
[2020-02-24 16:29] LABS: ABG Base Excess -5.7 mmol/L; ABG HCO3 22 mmol/L (21-25); ABG PCO2 55 mmHg (35-45); ABG PH 7.22 (7.35-7.45); ABG PO2 153 mmHg (83-108); ABG TCO2 24 mmol/L (19-24)
[2020-02-24] MEDS: ALBUMIN HUMAN 5% 250 ML in EMPTY BAG 1 BAG IVPB PRN ×4 (16:30→20:22)
[2020-02-24 16:31] LABS: Allen Test Performed? no
[2020-02-24] MEDS ORDERED: METOPROLOL TARTRATE 5 MG/5 ML VIAL IVP STA ×2 (16:32→16:33)
--- NOTE | 2020-02-24 16:47 | XR ---
EXAMINATION TYPE: XR chest 1V portable DATE OF EXAM: 02/24/2020 COMPARISON: 02/17/2020 HISTORY: Postop cardiac surgery TECHNIQUE: FINDINGS: Endotracheal tube is 3 cm from the norberto. Right jugular catheter has the tip in the right pulmonary artery. There is some mild soft tissue air on the left lateral chest wall. There is a chest tube at the base of the heart at the left cardiac border. There is no heart failure. There is some m ild atelectasis at the lung bases. There are sternal wires. IMPRESSION: Mild atelectasis at the lung bases. No heart failure seen. No pneumothorax.
--- NOTE | 2020-02-24 16:50 | P.CNPUL ---
History of Present Illness Consult date: 02/24/20 Reason for consult: other (Status post CABG.) Chief complaint: Multivessel coronary artery disease, unstable angina. History of present illness: This is a 69-year-old white male with known history of coronary artery disease, previous LA in 2006, multiple prior stent placements, hypertension, dyslipidemia, history of GI bleeding with anemia, and strong family history of coronary artery disease premature, less than 60 years of age. Remote history of smoking quit smoking in 1983, occasional marijuana use, patient was seen recently by cardiology, and he underwent cardiac catheterization to evaluate symptoms of angina/unstable angina. His cardiac catheterization showed multivessel coronary artery disease, with 90% stenosis of LAD, 90% stenosis of circumflex, there was a, left main, obtuse marginal with 50%, and proximal RCA 70% in stent stenosis. Patient was advised aggressive risk factors modifications, and considering that the ostial LAD and circumflex disease noted to be heavily calcified, CABG was recommended. Today the patient underwent myocardial revascularization. Postoperatively, patient was on mechanical ventilation, and I was asked to see him on consultation. Preop spirometry showed that the patient had FEV1 of 86%, FEV1/FVC was normal. Postoperative chest x-ray showed no evidence of active disease, endotracheal tube, [place] catheter, and other tubes were noted to be in proper position patient is sedated, patient is now on clevidipine for elevated blood pressure, his also on milrinone and on nitroglycerin. Chest x-ray was reviewed ventilator settings were also reviewed and he is now on assist control mode of mechanical ventilation rate of 12 tidal volume is 550, FiO2 on the percent and PEEP of 5 ABG showed a pO2 of 153 pCO2 of 55 pH of 7.22, hence will increase rate up to 1 8. Review of Systems ROS unobtainable: due to endotracheal tube Past Medical History Past Medical History: Coronary Artery Disease (CAD), Cancer, Diabetes Mellitus, GI Bleed, Hyperlipidemia, Hypertension, Myocardial Infarction ([place]) Additional Past Medical History / Comment(s): hx ulcer/GI bleed 2014, skin cancer Last Myocardial Infarction Date:: 06/2006 History of Any Multi-Drug Resistant Organisms: None Reported Past Surgical History: Heart Catheterization, Heart Catheterization With Stent, Hernia Repair, Orthopedic Surgery, Tonsillectomy Additional Past Surgical History / Comment(s): 3 cardiac STENTS, skin cancer removed from nose, surgery fx rt foot, Past Anesthesia/Blood Transfusion Reactions: Postoperative Nausea & Vomiting (PONV) Additional Past Anesthesia/Blood Transfusion Reaction / Comment(s): states "no problems with prior blood transfusions in 2014" Date of Last Stent Placement:: 06/13/2006 Smoking Status: Former smoker - Past Family History Brother(s) Additional Family Medical History / Comment(s): pacemaker, one of his brothers in his early 40s from myocardial infarction. Father Family Medical History: Cancer Additional Family Medical History / Comment(s): stomach CA Mother Family Medical History: Congestive Heart Failure (CHF) Medications and Allergies Home Medications Medication Instructions Recorded Confirmed Type Losartan Potassium 100 mg PO DAILY 04/27/15 02/24/20 History amLODIPine [Norvasc] 5 mg PO BID 04/27/15 02/24/20 History Ferrous Sulfate [Iron (65 MG 65 mg PO DAILY 06/16/15 02/24/20 History Elemental)] Pantoprazole Sodium [Protonix] 40 mg PO BID 06/21/15 02/24/20 History Aspirin [Adult Low Dose Aspirin EC] 81 mg PO HS 02/12/20 02/24/20 History Ezetimibe [Zetia] 10 mg PO HS 02/12/20 02/24/20 History Isosorbide Mononitrate [Isosorbide 30 mg PO DAILY 02/12/20 02/24/20 History Mononitrate ER] Metoprolol Succinate [Toprol XL] 100 mg PO DAILY 02/12/20 02/24/20 History Rosuvastatin Calcium [Crestor] 20 mg PO HS 02/12/20 02/24/20 History metFORMIN HCL [Glucophage] 500 mg PO BID 02/12/20 02/24/20 History Clopidogrel [Plavix] 75 mg PO DAILY 02/23/20 02/24/20 History Mupirocin 2% Oint [Bactroban 2% 1 applic NASAL BID 02/23/20 02/24/20 History Oint] Aspirin 325 mg PO ONCE 02/24/20 02/24/20 History Allergies Allergy/AdvReac Type Severity Reaction Status Date / Time No Known Allergies Allergy Verified 02/24/20 05:58 Physical Exam Vitals: Vital Signs Temp Pulse Resp BP Pulse Ox 02/24/20 06:21 97.8 F 60 15 162/81 98 Intake and Output 02/24/20 02/24/20 02/24/20 06:59 14:59 22:59 Intake Total 34 Output Total 2049 Balance 34 -2049 Intake: IV 34 Output: Urine 550 Estimated Blood Loss 1500 Other: Weight 95.7 kg Physical Exam: Revealed 69-year-old white male on mechanical ventilation, sedated, in no distress. Head: Atraumatic, normocephalic. HEENT:[Neck is supple.] [No neck masses.] [No thyromegaly.] [No JVD.] End otracheal tube and orogastric tubes are intact. Chest: Symmetrical chest expansion [diminished breath sounds and crackles at the bases. No rhonchi and no wheezes. Cardiac Exam: Normal S1 and S2, no S3 gallop, positive pericardial rub. No murmur. Abdomen: [Soft, nontender, no megaly, no rebound, no guarding, normal bowel sounds.] Extremities: [No clubbing, no edema, no cyanosis.] Neurological Exam: Could not be assessed. Patient is sedated just came back up from the operating room. Psychiatric: Could not be assessed. Skin: No rashes Results - Laboratory Findings CBC and BMP: 02/24/20 16:10 02/24/20 16:10 ABG ABG pH 7.22 (7.35-7.45) L 02/24/20 16:22 ABG pCO2 55 mmHg (35-45) H 02/24/20 16:22 ABG pO2 153 mmHg (83-108) H 02/24/20 16:22 ABG O2 Saturation 99.0 % (94-97) H 02/24/20 16:22 PT/INR, D-dimer PT 11.4 sec (9.0-12.0) 02/24/20 16:10 INR 1.1 (<1.2) 02/24/20 16:10 Abnormal lab findings: Abnormal Labs 02/19/20 02/24/20 02/24/20 13:43 06:22 08:35 WBC RBC Hgb Hct Neutrophils # ABG pH ABG pCO2 ABG pO2 153 H ABG HCO3 ABG Total CO2 26 H ABG O2 Saturation 99.0 H ABG Hematocrit ABG Potassium ABG Ionized Calcium ABG Glucose 132 H Hemoglobin Chloride Glucose POC Glucose (mg/dL) 105 H Calcium Magnesium Alkaline Phosphatase Total Protein Albumin Arterial Blood Potassium Arterial Blood Glucose 132 H Crossmatch See Detail 02/24/20 02/24/20 02/24/20 10:35 11:53 12:30 WBC RBC Hgb Hct Neutrophils # ABG pH 7.34 L 7.34 L ABG pCO2 48 H 46 H ABG pO2 193 H 267 H 225 H ABG HCO3 26 H ABG Total CO2 27 H 26 H 26 H ABG O2 Saturation 99.5 H 99.7 H 99.7 H ABG Hematocrit 32 L 30 L ABG Potassium 4.9 H ABG Ionized Calcium 4.4 L 4.4 L ABG Glucose 107 H 158 H 148 H Hemoglobin 12.6 L 10.4 L 9.9 L Chloride Glucose POC Glucose (mg/dL) Calcium Magnesium Alkaline Phosphatase Total Protein Albumin Arterial Blood Potassium 4.9 H Arterial Blood Glucose 107 H 158 H 148 H Crossmatch 02/24/20 02/24/20 02/24/20 13:01 13:31 15:58 WBC RBC Hgb Hct Neutrophils # ABG pH ABG pCO2 ABG pO2 217 H 265 H ABG HCO3 ABG Total CO2 26 H 26 H ABG O2 Saturation 99.7 H 99.7 H ABG Hematocrit 31 L 30 L ABG Potassium ABG Ionized Calcium 4.4 L 4.4 L ABG Glucose 129 H 132 H Hemoglobin 10.0 L 9.9 L Chloride Glucose POC Glucose (mg/dL) 115 H Calcium Magnesium Alkaline Phosphatase Total Protein Albumin Arterial Blood Potassium Arterial Blood Glucose 129 H 132 H Crossmatch 02/24/20 02/24/20 02/24/20 16:10 16:10 16:22 WBC 13.7 H RBC 4.11 L Hgb 12.4 L Hct 38.2 L Neutrophils # 11.5 H ABG pH 7.22 L ABG pCO2 55 H ABG pO2 153 H ABG HCO3 ABG Total CO2 ABG O2 Saturation 99.0 H ABG Hematocrit ABG Potassium ABG Ionized Calcium ABG Glucose Hemoglobin Chloride 109 H Glucose 117 H POC Glucose (mg/dL) Calcium 8.0 L Magnesium 2.6 H Alkaline Phosphatase 37 L Total Protein 5.1 L Albumin 3.1 L Arterial Blood Potassium Arterial Blood Glucose Crossmatch - Diagnostic Findings Chest x-ray: image reviewed (As noted in HPI) Assessment and Plan Assessment: Impression: Status post CABG, postoperative day #1. Quadruple bypass surgery. History of type 2 diabetes. History of previous LA. Dyslipidemia. Benign essential hypertension. Family history of premature coronary artery disease. former smoker, quit in 1983. History of unstable angina. History of GI bleeding and anemia secondary to GI blood loss. Recommendation: Continue ventilatory support, his mode of mechanical ventilation was changed from IMV mode to assist control mode and the rate was increased to 18. Continue hemodynamic support. GI and DVT prophylaxis. Assessment possible weaning and extubation later this evening. Close monitoring of his sugars. Bronchodilators in the form of DuoNeb. Early ambulation post extubation. We'll continue to follow. Time with Patient: Greater than 30
[2020-02-24 16:51] LABS: Glucose,Whole Blood 180 mg/dL (75-99)
[2020-02-24] MEDS: INSULIN REGULAR 100 UNIT in SODIUM CHLORIDE 0.9% 100 ML IV SCH (16:54)
[2020-02-24] MEDS ORDERED: CISATRACURIUM 2 MG/ML 5 ML VIAL IV ONE (17:10)
[2020-02-24 17:19] LABS: ABG HCO3 21 mmol/L (21-25); ABG Oxygen Saturation 99.2 % (94-97); ABG PCO2 52 mmHg (35-45); ABG PH 7.21 (7.35-7.45); ABG PO2 150 mmHg (83-108); ABG TCO2 23 mmol/L (19-24)
[2020-02-24 17:20] LABS: Allen Test Performed? no
[2020-02-24] MEDS ORDERED: SODIUM BICARB 8.4% 50 ML SYR (1 MEQ/ML) IV STA (17:25)
[2020-02-24 17:40] LABS: Glucose,Whole Blood 177 mg/dL (75-99)
[2020-02-24 17:58] LABS: ABG Base Excess -0.8 mmol/L; ABG HCO3 24 mmol/L (21-25); ABG Oxygen Saturation 99.4 % (94-97); ABG PCO2 39 mmHg (35-45); ABG PO2 130 mmHg (83-108); ABG TCO2 25 mmol/L (19-24)
[2020-02-24 18:00] LABS: Allen Test Performed? no
--- NOTE | 2020-02-24 18:06 | P.CONS ---
History of Present Illness - Reason for Consult Consult date: 02/24/20 DM management Requesting physician: Ramos Sanz - Chief Complaint CAD - History of Present Illness Patient is a 69-year-old male with a history of coronary artery disease previous myocardial infarction with stenting, HTN, HLD, and prior GI bleed who presented for CABG X5. He underwent procedure on 02/23. He was admitted to the ICU intubated and sedated. He was having elevated blood pressures after admission. Patient seen and examined at bedside. He currently is getting paralytics and pressors. Review of Systems Pertinent positives and negatives as discussed in HPI, a complete review of systems was performed and all other systems are negative. Past Medical History Past Medical History: Coronary Artery Disease (CAD), Cancer, Diabetes Mellitus, GI Bleed, Hyperlipidemia, Hypertension, Myocardial Infarction ([place]) Additional Past Medical History / Comment(s): hx ulcer/GI bleed 2014, skin cancer Last Myocardial Infarction Date:: 06/2006 History of Any Multi-Drug Resistant Organisms: None Reported Past Surgical History: Heart Catheterization, Heart Catheterization With Stent, Hernia Repair, Orthopedic Surgery, Tonsillectomy Additional Past Surgical History / Comment(s): 3 cardiac STENTS, skin cancer removed from nose, surgery fx rt foot, Past Anesthesia/Blood Transfusion Reactions: Postoperative Nausea & Vomiting (PONV) Additional Past Anesthesia/Blood Transfusion Reaction / Comm: states "no problems with prior blood transfusions in 2014" Date of Last Stent Placement:: 06/13/2006 Smoking Status: Former smoker - Past Family History Brother(s) Additional Family Medical History / Comment(s): pacemaker, one of his brothers in his early 40s from myocardial infarction. Father Family Medical History: Cancer Additional Family Medical History / Comment(s): stomach CA Mother Family Medical History: Congestive Heart Failure (CHF) Medications and Allergies Home Medications Medication Instructions Recorded Confirmed Type Losartan Potassium 100 mg PO DAILY 04/27/15 02/24/20 History amLODIPine [Norvasc] 5 mg PO BID 04/27/15 02/24/20 History Ferrous Sulfate [Iron (65 MG 65 mg PO DAILY 06/16/15 02/24/20 History Elemental)] Pantoprazole Sodium [Protonix] 40 mg PO BID 06/21/15 02/24/20 History Aspirin [Adult Low Dose Aspirin EC] 81 mg PO HS 02/12/20 02/24/20 History Ezetimibe [Zetia] 10 mg PO HS 02/12/20 02/24/20 History Isosorbide Mononitrate [Isosorbide 30 mg PO DAILY 02/12/20 02/24/20 History Mononitrate ER] Metoprolol Succinate [Toprol XL] 100 mg PO DAILY 02/12/20 02/24/20 History Rosuvastatin Calcium [Crestor] 20 mg PO HS 02/12/20 02/24/20 History metFORMIN HCL [Glucophage] 500 mg PO BID 02/12/20 02/24/20 History Clopidogrel [Plavix] 75 mg PO DAILY 02/23/20 02/24/20 History Mupirocin 2% Oint [Bactroban 2% 1 applic NASAL BID 02/23/20 02/24/20 History Oint] Aspirin 325 mg PO ONCE 02/24/20 02/24/20 History Allergies Allergy/AdvReac Type Severity Reaction Status Date / Time No Known Allergies Allergy Verified 02/24/20 05:58 Physical Exam Osteopathic Statement: *. No significant issues noted on an osteopathic structural exam other than those noted in the History and Physical/Consult. Vitals: Vital Signs Temp Pulse Pulse Resp BP BP Pulse Ox 02/24/20 17:00 37.4 F L 93 23 100 02/24/20 16:45 81 14 100 02/24/20 16:30 107 H 19 95 02/24/20 16:15 85 12 136/69 97 02/24/20 16:00 35.5 F L 80 13 100 02/24/20 15:49 27 H 100 02/24/20 06:21 97.8 F 60 15 162/81 98 Intake and Output 02/24/20 02/24/20 02/24/20 06:59 14:59 22:59 Intake Total 34 100 Output Total 2635 Balance 34 -2535 Intake: IV 34 100 Sodium Chloride 0.9% 1, 100 000 ml @ 50 mls/hr IV . Q20H [facility] Rx#:[id number] Output: Chest Tube Drainage 500 Bilateral Mediastinal 250 Left Anterior Chest 250 Urine 635 Estimated Blood Loss 1500 Other: Weight 95.7 kg ABP, PAP, CO, CI - Last 8 Hours Arterial Blood Pressure 123/38 Arterial Blood Pressure 112/35 Arterial Blood Pressure 141/54 Arterial Blood Pressure 166/51 Pulmonary Artery Pressure 27/15 Pulmonary Artery Pressure 24/13 Pulmonary Artery Pressure 32/12 Cardiac Output 6.7 Cardiac Output 7.2 Cardiac Index 3.1 Cardiac Index 3.3 General: non toxic, no distress, appears older than stated age Derm: warm, dry Head: atraumatic, normocephalic, symmetric Eyes: EOMI, no lid lag, anicteric sclera, pupils equal round reactive to light ENT: Nose and ears atraumatic, no thrush, no pharyngeal erythema Neck: No thyromegaly, no cervical lymphadenopathy, trachea midline, supple Mouth: no lip lesion, mucus membranes dry Cardiovascular: S1S2 reg, no murmur, positive posterior tibial pulse bilateral, no edema, capillary refill less than 2 seconds Lungs: course bs bilateral, no ronchi, no rales, no wheeze, no accessory muscle use, on vent with paralytics, Chest tube in place and medistinal tube in place Abdominal: soft, nontender to palpation, no guarding, no appreciable organomegaly, normal bowel sounds Ext: no gross muscle atrophy, no contractures Neuro: Paralyzed on vent Psych: sedated on vent Results CBC & Chem 7: 02/24/20 16:10 02/24/20 16:10 Labs: Abnormal Lab Results - Last 24 Hours (Table) 02/19/20 02/24/20 02/24/20 Range/Units 13:43 06:22 08:35 WBC (3.8-10.6) k/uL RBC (4.30-5.90) m/uL Hgb (13.0-17.5) gm/dL Hct (39.0-53.0) % Neutrophils # (1.3-7.7) k/uL ABG pH (7.35-7.45) ABG pCO2 (35-45) mmHg ABG pO2 153 H (83-108) mmHg ABG HCO3 (21-25) mmol/L ABG Total CO2 26 H (19-24) mmol/L ABG O2 Saturation 99.0 H (94-97) % ABG Hematocrit (34.0-46.0) % ABG Potassium (3.4-4.5) mmol/L ABG Ionized Calcium (4.5-5.3) mg/dL ABG Glucose 132 H (75-99) mg/dL Hemoglobin (13.0-17.5) gm/dL Chloride (98-107) mmol/L Glucose (74-99) mg/dL POC Glucose (mg/dL) 105 H (75-99) mg/dL Calcium (8.4-10.2) mg/dL Magnesium (1.6-2.3) mg/dL Alkaline Phosphatase (38-126) U/L Total Protein (6.3-8.2) g/dL Albumin (3.5-5.0) g/dL Arterial Blood Potassium (3.4-4.5) mmol/L Arterial Blood Glucose 132 H (75-99) mg/dL Crossmatch See Detail 02/24/20 02/24/20 02/24/20 Range/Units 10:35 11:53 12:30 WBC (3.8-10.6) k/uL RBC (4.30-5.90) m/uL Hgb (13.0-17.5) gm/dL Hct (39.0-53.0) % Neutrophils # (1.3-7.7) k/uL ABG pH 7.34 L 7.34 L (7.35-7.45) ABG pCO2 48 H 46 H (35-45) mmHg ABG pO2 193 H 267 H 225 H (83-108) mmHg ABG HCO3 26 H (21-25) mmol/L ABG Total CO2 27 H 26 H 26 H (19-24) mmol/L ABG O2 Saturation 99.5 H 99.7 H 99.7 H (94-97) % ABG Hematocrit 32 L 30 L (34.0-46.0) % ABG Potassium 4.9 H (3.4-4.5) mmol/L ABG Ionized Calcium 4.4 L 4.4 L (4.5-5.3) mg/dL ABG Glucose 107 H 158 H 148 H (75-99) mg/dL Hemoglobin 12.6 L 10.4 L 9.9 L (13.0-17.5) gm/dL Chloride (98-107) mmol/L Glucose (74-99) mg/dL POC Glucose (mg/dL) (75-99) mg/dL Calcium (8.4-10.2) mg/dL Magnesium (1.6-2.3) mg/dL Alkaline Phosphatase (38-126) U/L Total Protein (6.3-8.2) g/dL Albumin (3.5-5.0) g/dL Arterial Blood Potassium 4.9 H (3.4-4.5) mmol/L Arterial Blood Glucose 107 H 158 H 148 H (75-99) mg/dL Crossmatch 02/24/20 02/24/20 02/24/20 Range/Units 13:01 13:31 15:58 WBC (3.8-10.6) k/uL RBC (4.30-5.90) m/uL Hgb (13.0-17.5) gm/dL Hct (39.0-53.0) % Neutrophils # (1.3-7.7) k/uL ABG pH (7.35-7.45) ABG pCO2 (35-45) mmHg ABG pO2 217 H 265 H (83-108) mmHg ABG HCO3 (21-25) mmol/L ABG Total CO2 26 H 26 H (19-24) mmol/L ABG O2 Saturation 99.7 H 99.7 H (94-97) % ABG Hematocrit 31 L 30 L (34.0-46.0) % ABG Potassium (3.4-4.5) mmol/L ABG Ionized Calcium 4.4 L 4.4 L (4.5-5.3) mg/dL ABG Glucose 129 H 132 H (75-99) mg/dL Hemoglobin 10.0 L 9.9 L (13.0-17.5) gm/dL Chloride (98-107) mmol/L Glucose (74-99) mg/dL POC Glucose (mg/dL) 115 H (75-99) mg/dL Calcium (8.4-10.2) mg/dL Magnesium (1.6-2.3) mg/dL Alkaline Phosphatase (38-126) U/L Total Protein (6.3-8.2) g/dL Albumin (3.5-5.0) g/dL Arterial Blood Potassium (3.4-4.5) mmol/L Arterial Blood Glucose 129 H 132 H (75-99) mg/dL Crossmatch 02/24/20 02/24/20 02/24/20 Range/Units 16:10 16:10 16:22 WBC 13.7 H (3.8-10.6) k/uL RBC 4.11 L (4.30-5.90) m/uL Hgb 12.4 L (13.0-17.5) gm/dL Hct 38.2 L (39.0-53.0) % Neutrophils # 11.5 H (1.3-7.7) k/uL ABG pH 7.22 L (7.35-7.45) ABG pCO2 55 H (35-45) mmHg ABG pO2 153 H (83-108) mmHg ABG HCO3 (21-25) mmol/L ABG Total CO2 (19-24) mmol/L ABG O2 Saturation 99.0 H (94-97) % ABG Hematocrit (34.0-46.0) % ABG Potassium (3.4-4.5) mmol/L ABG Ionized Calcium (4.5-5.3) mg/dL ABG Glucose (75-99) mg/dL Hemoglobin (13.0-17.5) gm/dL Chloride 109 H (98-107) mmol/L Glucose 117 H (74-99) mg/dL POC Glucose (mg/dL) (75-99) mg/dL Calcium 8.0 L (8.4-10.2) mg/dL Magnesium 2.6 H (1.6-2.3) mg/dL Alkaline Phosphatase 37 L (38-126) U/L Total Protein 5.1 L (6.3-8.2) g/dL Albumin 3.1 L (3.5-5.0) g/dL Arterial Blood Potassium (3.4-4.5) mmol/L Arterial Blood Glucose (75-99) mg/dL Crossmatch 02/24/20 02/24/20 02/24/20 Range/Units 16:49 17:15 17:21 WBC (3.8-10.6) k/uL RBC (4.30-5.90) m/uL Hgb (13.0-17.5) gm/dL Hct (39.0-53.0) % Neutrophils # (1.3-7.7) k/uL ABG pH 7.21 L (7.35-7.45) ABG pCO2 52 H (35-45) mmHg ABG pO2 150 H (83-108) mmHg ABG HCO3 (21-25) mmol/L ABG Total CO2 (19-24) mmol/L ABG O2 Saturation 99.2 H (94-97) % ABG Hematocrit (34.0-46.0) % ABG Potassium (3.4-4.5) mmol/L ABG Ionized Calcium (4.5-5.3) mg/dL ABG Glucose (75-99) mg/dL Hemoglobin (13.0-17.5) gm/dL Chloride (98-107) mmol/L Glucose (74-99) mg/dL POC Glucose (mg/dL) 180 H 177 H (75-99) mg/dL Calcium (8.4-10.2) mg/dL Magnesium (1.6-2.3) mg/dL Alkaline Phosphatase (38-126) U/L Total Protein (6.3-8.2) g/dL Albumin (3.5-5.0) g/dL Arterial Blood Potassium (3.4-4.5) mmol/L Arterial Blood Glucose (75-99) mg/dL Crossmatch 02/24/20 Range/Units 17:57 WBC (3.8-10.6) k/uL RBC (4.30-5.90) m/uL Hgb (13.0-17.5) gm/dL Hct (39.0-53.0) % Neutrophils # (1.3-7.7) k/uL ABG pH (7.35-7.45) ABG pCO2 (35-45) mmHg ABG pO2 130 H (83-108) mmHg ABG HCO3 (21-25) mmol/L ABG Total CO2 25 H (19-24) mmol/L ABG O2 Saturation 99.4 H (94-97) % ABG Hematocrit (34.0-46.0) % ABG Potassium (3.4-4.5) mmol/L ABG Ionized Calcium (4.5-5.3) mg/dL ABG Glucose (75-99) mg/dL Hemoglobin (13.0-17.5) gm/dL Chloride (98-107) mmol/L Glucose (74-99) mg/dL POC Glucose (mg/dL) (75-99) mg/dL Calcium (8.4-10.2) mg/dL Magnesium (1.6-2.3) mg/dL Alkaline Phosphatase (38-126) U/L Total Protein (6.3-8.2) g/dL Albumin (3.5-5.0) g/dL Arterial Blood Potassium (3.4-4.5) mmol/L Arterial Blood Glucose (75-99) mg/dL Crossmatch Chest x-ray: report reviewed Assessment and Plan Assessment: CAD s/p 5 vessel bypass being managed by CT surgery DM2 - on insulin gtt - follow accuchecks - hold metformin - Preop HgB A1C 6.4 HLD - statin, zetia GERD - PPI Obesity BMI 30 - outpatinet structured weight loss HTN - currently hypotnesive and on pressors Thank you for allowing us to participate in the care of this pleasant patient. Do not hesitate to contact us with questions. Someone can be reached from the [facility] hospitalist group all hours of the day at [phone] or via [employer]
[2020-02-24] MEDS: SODIUM CHLORIDE 0.9% 1,000 ML IV SCH (18:07)
[2020-02-24 18:15] LABS: HCT 33.1 % (39.0-53.0); HGB 11.5 gm/dL (13.0-17.5); MCH 31.7 pg (25.0-35.0); MCHC 34.7 g/dL (31.0-37.0); MCV 91.2 fL (80.0-100.0); Mean Platelet Volume 8.1; Platelet Count 160 k/uL (150-450); RBC 3.63 m/uL (4.30-5.90); RDW 13.1 % (11.5-15.5); WBC 13.7 k/uL (3.8-10.6)
[2020-02-24 18:45] LABS: Glucose,Whole Blood 133 mg/dL (75-99)
[2020-02-24] MEDS: IPRATROPIUM-ALBUTEROL 3 ML NEB INHALATION SCH ×3 (19:17→19:18)
[2020-02-24] MEDS: KETOROLAC 15 MG/ML 1 ML VIAL IVP SCH (19:49)
[2020-02-24 20:16] LABS: Glucose,Whole Blood 100 mg/dL (75-99)
[2020-02-24 21:00] LABS: Glucose,Whole Blood 98 mg/dL (75-99)
--- NOTE | 2020-02-24 21:04 | XR ---
EXAMINATION TYPE: XR chest 1V DATE OF EXAM: 02/24/2020 COMPARISON: Today HISTORY: Check tube placement TECHNIQUE: FINDINGS: There is nasogastric tube in the stomach. There is right jugular catheter with tip in the m ain pulmonary artery. The endotracheal tube is 4.5 cm from the norberto. There is some atelectasis left lung base. There is no gross heart failure. There is poor inspiration. There are sternal wires. IMPRESSION: Mild infiltrate and atelectasis left lung base unchanged. No obvious heart failure.
[2020-02-24] MEDS: EZETIMIBE 10 MG TAB PO SCH (21:47)
[2020-02-24] MEDS: METOPROLOL TARTRATE 12.5 MG TAB PO SCH (21:47)
[2020-02-24 22:07] LABS: Glucose,Whole Blood 111 mg/dL (75-99)
[2020-02-24 22:16] LABS: Basophils % (A) 0 %; Eosinophils % (A) 0 %; HCT 27.1 % (39.0-53.0); Lymphocytes # (A) 0.8 k/uL (1.0-4.8); Lymphocytes % (A) 7 %; MCH 30.6 pg (25.0-35.0); MCHC 33.1 g/dL (31.0-37.0); MCV 92.3 fL (80.0-100.0); Mean Platelet Volume 9.1; Monocytes # (A) 0.7 k/uL (0-1.0); Monocytes % (A) 6 %; Neutrophils # (A) 10.2 k/uL (1.3-7.7); Neutrophils % (A) 87 %; Platelet Count 140 k/uL (150-450); RBC 2.93 m/uL (4.30-5.90); RDW 13.7 % (11.5-15.5); WBC 11.7 k/uL (3.8-10.6)
[2020-02-24 23:09] LABS: Glucose,Whole Blood 131 mg/dL (75-99)
[2020-02-24] MEDS: HYDROcodone/APAP 5-325MG 1 EACH TAB PO PRN (23:33)
[2020-02-24] MEDS: HEPARIN SODIUM,PORCINE 5,000 UNIT/ML 1 ML VIAL SQ SCH (23:33)
[2020-02-25 00:11] LABS: Glucose,Whole Blood 142 mg/dL (75-99)
[2020-02-25] MEDS: KETOROLAC 15 MG/ML 1 ML VIAL IVP SCH ×5 (00:52→23:59)
[2020-02-25 01:06] LABS: Glucose,Whole Blood 143 mg/dL (75-99)
[2020-02-25 01:58] LABS: Glucose,Whole Blood 139 mg/dL (75-99)
[2020-02-25] MEDS: ALBUMIN HUMAN 5% 250 ML in EMPTY BAG 1 BAG IVPB PRN ×4 (02:05→07:58)
[2020-02-25] MEDS: MILRINONE-D5W PMX 20 MG in DEXTROSE/WATER 1 100ML.BAG IV SCH ×2 (02:45→17:13)
[2020-02-25 03:01] LABS: Glucose,Whole Blood 131 mg/dL (75-99)
--- NOTE | 2020-02-25 03:48 | OP ---
OPERATIVE REPORT DATE OF THE SURGERY: 02/24/2020. SURGEON: Dr. Ramos Sanz. ASSISTANTS: 1. Guillaume Sweeney. 2. Chava Yan. 3. YING Coelho. PREOPERATIVE DIAGNOSES: 1. Triple-vessel coronary artery disease, status post prior stenting to his right coronary artery with inferior wall myocardial infarction. 2. Mild to moderate mitral valve regurgitation. 3. Diabetes mellitus. 4. Hypertension. 5. Strong family history of coronary artery disease. POSTOPERATIVE DIAGNOSES: 1. Triple-vessel coronary artery disease, status post prior stenting to his right coronary artery with inferior wall myocardial infarction. 2. Mild to moderate mitral valve regurgitation. 3. Diabetes mellitus. 4. Hypertension. 5. Strong family history of coronary artery disease. 6. Thinned out distal anteroapical and inferior wall. PROCEDURES PERFORMED: 1. Quadruple coronary artery bypass grafting using the left internal mammary artery to the left anterior descending artery after endarterectomy, the left radial artery from the aorta to the second obtuse marginal artery, saphenous vein graft from the aorta to the diagonal artery, saphenous vein graft from the aorta to the posterior descending artery. 2. Endoscopic harvesting of the left radial artery. 3. Endoscopic harvesting of the right greater saphenous vein. 4. Intraoperative transesophageal echocardiogram and epiaortic scanning. 5. Intraoperative graft flow measurements using the Tizra system. INDICATIONS FOR SURGERY: The patient is a 69-year-old gentleman, worked up for recent worsening dyspnea on exertion and found to have triple-vessel disease. Patient had prior stenting to his right coronary artery and was on chronic Plavix. The patient on 2D echo had mild-to- moderate mitral valve regurgitation and had no signs or symptoms of congestive heart failure and his left atrium was mildly dilated. Plan is for coronary artery bypass grafting and will be checking the mitral valve with a DONNA intraoperatively. The STS risk was discussed with him. He understood it and agreed to proceed. DESCRIPTION OF THE PROCEDURE: The patient in supine position. Right internal jugular [place]-Mil[place] catheter and right radial arterial line were placed. His PA pressure was 47/12 and cardiac index was 3.1. The patient subsequently was brought to the operating room and general endotracheal anesthesia was induced uneventfully. Dwyer catheter was inserted. The chest, abdomen, both lower extremities and the left upper extremity were prepped and draped using ChloraPrep. Ioban was used to cover the skin. Patient received 2 grams of cefazolin intravenously. Transesophageal echocardiogram confirmed reported finding of a mild to moderate functional mitral valve regurgitation, which we elected to leave alone. The left ventricular function was overall preserved. Midline sternotomy was performed and the bone was nicely dense. The left hemisternum was elevated. The left internal mammary artery was harvested in a somewhat skeletonized fashion. The left pleura was intentionally opened in this process and was drained with a 19-B[place]ud[place] Maynor drain. It made a small opening in the right pleura at the end of the case to decompress potential pneumothorax and the right pleura was not drained. The patient was given 5000 units of heparin. The mammary artery was clipped distally and transected had maximum pulsatile flow in it and was around 1.75 mm in diameter. In the same setting, the left radial artery was harvested endoscopically without using a tourniquet. It was initially exposed of the wrist where clamping trial revealed preserved signal in the left index O2 plethysmography probe. The forearm incision was closed over a drain. The radial artery was prepared by incising the fascia all along its volar aspect and clipping all the branches. It was of excellent quality around 3 mm in diameter. Also in the same setting, the right greater saphenous vein was harvested endoscopically from groin to above ankle level. The branches were tied. The leg incisions were closed over a drain. The vein appeared to be of good quality around 4 mm in diameter. Mediastinal fat was transected between 2 ties and epiaortic scanning revealed some concentric intimal thickening but no protruding atheroma in the ascending aorta. Pericardium was opened in an inverted T-fashion and a pericardial cradle was created. Findings included normal soft aorta and mildly enlarged heart with palpable disease of the coronary arteries. Eventually, we also established that there was thinning pointing to an old myocardial infarction in the distal anteroapical and apical lateral and apical inferior wall. After systemic heparinization, after placement of respective pledgeted pursestring, aortic cannulation with 21-Bermudian soft flow cannula and venous cannulation via the right atrial appendage with a 3-stage 29-Bermudian cannula was conducted. Antegrade as well as retrograde cardioplegia catheters were placed. Cardiopulmonary bypass was initiated and with the patient's heart empty and beating and warm we looked at the target. The LAD had plaque at its bifurcation with the last diagonal artery which was seen. The lateral wall, obtuse marginal artery was identified for bypass. The ramus as predicted was small and non bypassable. The diagonal artery was identified and will be bypassed before its bifurcation. The PDA in the proximal aspect also appeared amenable to bypass. Aorta was clamped and during aortic clamping, myocardial protection was achieved with 1 L of antegrade cold blood cardioplegia with adequate arrest followed by 500 mL of retrograde cold blood cardioplegia. All subsequent doses were given in retrograde at 15 to 20 minutes interval. The first distal anastomosis was between a segment of reverse saphenous vein graft and 1.5 mm thin-walled posterior descending artery using Prolene 7-0 in continuous fashion. In each anastomosis, I used a 1 mm shunt that was removed before tying of the anastomosis. The second distal anastomosis was between the left radial artery and distal obtuse marginal artery, which was around 1.75 mm in diameter, thin-walled using Prolene 7-0 in continuous fashion. The third distal anastomosis was between another segment of vein of good quality and the diagonal artery which was around 1.5 mm in diameter thin-walled using Prolene 7-0 in continuous fashion. The fourth distal anastomosis was between the left anterior descending artery that was opened across the calcified plaque at the bifurcation with a large diagonal artery and the plaque was endarterectomized and the left internal mammary artery using Prolene 7-0 in continuous fashion. The anastomosis was in a patch angioplasty fashion. The mammary veins were affixed to the epicardium on either side with Prolene 7-0 sutures. Satisfied with the distal anastomosis, rewarming was started as we punched out 3 buttons of the proximal aorta and performed the two proximal anastomosis of the vein graft and the single proximal anastomosis of the radial artery to the aorta using running Prolene. Patient was given lidocaine and magnesium. He was half loaded with Primacor. De-airing maneuvers were followed before we unclamp the aorta. The patient regained spontaneous bradycardic sinus rhythm which was his baseline rhythm. DONNA showed a lot of air in that thinned out distal the apex. For that reason, I used an 18- gauge to help de-airing. The de-airing hole was closed with a 6-0 then eventually 4-0 pledgeted Prolene. After a period of reperfusion, we were able to wean off cardiopulmonary bypass on low-dose Primacor. DONNA showed overall preserved left ventricular function and mild to moderate mitral valve regurgitation; basically exactly what we started with. With that all suckers were stopped and test dose and full dose protamine was given. Decannulation followed. Two monopolar atrial pacing wires were affixed to the respective pursestring of the right atrium. No ventricular pacing wire was placed. A groove was made in the left pleural pericardial fat to accommodate the mammary artery medial to the lung and away from the posterior sternal table. The pericardial fat was approximated over the heart and the aorta. Two 19- [place] Maynor drains were left substernally. After ensuring adequate hemostasis, hemodynamic and after correct sponge, instrument, and needle count, the sternum was closed using 5 [id number] [place] cable after interposing fibular between the sternal edges. Thorough irrigation with cefazolin followed. The rest of the closure proceeded in layers. Skin glue was applied. Patient did not receive any blood bank product but received 500 mL of Cell Saver blood. Transferred to the ICU in stable condition with a PA pressure of 22/11, A-paced at 80 with normal EKG, CVP of 6, cardiac index of 2.6 on low-dose Primacor. MMODL / IJN: [id number] / [id number]
[2020-02-25 04:02] LABS: Glucose,Whole Blood 126 mg/dL (75-99)
[2020-02-25 04:09] LABS: Basophils % (A) 0 %; Eosinophils % (A) 0 %; HCT 24.8 % (39.0-53.0); HGB 7.9 gm/dL (13.0-17.5); Lymphocytes # (A) 1.3 k/uL (1.0-4.8); Lymphocytes % (A) 13 %; MCH 29.6 pg (25.0-35.0); MCHC 32.1 g/dL (31.0-37.0); MCV 92.1 fL (80.0-100.0); Mean Platelet Volume 10.1; Monocytes # (A) 0.5 k/uL (0-1.0); Monocytes % (A) 6 %; Neutrophils # (A) 7.7 k/uL (1.3-7.7); Neutrophils % (A) 80 %; Platelet Count 115 k/uL (150-450); RBC 2.69 m/uL (4.30-5.90); RDW 13.8 % (11.5-15.5); WBC 9.6 k/uL (3.8-10.6)
[2020-02-25 04:16] LABS: Ionized Calcium 4.6 mg/dL (4.5-5.3)
[2020-02-25 04:24] LABS: Albumin 2.9 g/dL (3.5-5.0); Calcium 7.7 mg/dL (8.4-10.2); Magnesium 2.1 mg/dL (1.6-2.3); Potassium 4.1 mmol/L (3.5-5.1); Total Bilirubin 0.7 mg/dL (0.2-1.3); Total Protein 4.5 g/dL (6.3-8.2)
[2020-02-25 05:00] LABS: Glucose,Whole Blood 120 mg/dL (75-99)
[2020-02-25 05:51] LABS: Glucose,Whole Blood 123 mg/dL (75-99)
[2020-02-25 05:52] LABS: ABG Base Excess -3.1 mmol/L; ABG HCO3 22 mmol/L (21-25); ABG Oxygen Saturation 98.5 % (94-97); ABG PCO2 36 mmHg (35-45); ABG PO2 103 mmHg (83-108); ABG TCO2 23 mmol/L (19-24)
[2020-02-25] MEDS: DEXMEDETOMIDINE/0.9% NACL(PMX) 400 MCG in EMPTY BAG 1 BAG IV SCH (06:16)
[2020-02-25 06:57] LABS: Glucose,Whole Blood 126 mg/dL (75-99)
[2020-02-25] MEDS ORDERED: CLOPIDOGREL 75 MG TAB PO STA (07:00)
[2020-02-25] MEDS: IPRATROPIUM-ALBUTEROL 3 ML NEB INHALATION SCH ×4 (07:30→21:11)
[2020-02-25] MEDS: ASPIRIN 325 MG TAB PO SCH (08:00)
[2020-02-25] MEDS: ATORVASTATIN 40 MG TAB PO SCH (08:00)
[2020-02-25] MEDS: HEPARIN SODIUM,PORCINE 5,000 UNIT/ML 1 ML VIAL SQ SCH ×2 (08:00→17:04)
[2020-02-25] MEDS: CLOPIDOGREL 75 MG TAB PO SCH (08:00)
[2020-02-25 08:15] LABS: Glucose,Whole Blood 114 mg/dL (75-99)
--- NOTE | 2020-02-25 08:55 | P.PN ---
Subjective Progress Note Date: 02/25/20 Principal diagnosis: Triple-vessel coronary artery disease with thinned out distal anteroapical and inferior wall, mild to moderate mitral valve regurgitation. Previous medical hi story of coronary artery disease status post prior stenting to the right coronary artery with inferior wall myocardial infarction, chronic systolic heart failure with EF 40%, diabetes mellitus with hemoglobin A1c 6.4%, hypertension, previous tobacco dependence with preoperative FEV1 86% of predicted and mild restrictive disease, obstructive sleep apnea without home CPAP use, daily marijuana use, previous GI bleed with severe anemia, strong family history of coronary artery disease with premature coronary artery disease, brother from myocardial infarction in his 40s. POD #1 quadruple coronary artery bypass grafting using the left internal mammary artery to the left anterior descending artery after endarterectomy, left radial artery from the aorta to the second obtuse marginal artery, reverse saphenous vein graft from the aorta to the diagonal artery, reverse saphenous vein graft from the aorta to the posterior descending artery. Endoscopic harvesting of the left radial artery. Endoscopic harvesting of the right greater saphenous veinfrom a level. Intraoperative transesophageal echocardiogram and epi-aortic scanning. Intraoperative graft flow measurements using the [facility] system. Postoperative acute blood loss anemia, expected given hemodilution and cardiopulmonary bypass pump as well as patient's previous history of anemia The patient is currently laying in the intensive care unit in no acute distress, remains mechanically ventilated although he is currently off propofol, does open his eyes and follows commands and is soon to be placed on CPAP mode. Remains in sinus rhythm, hemodynamically stable on low-dose Primacor. Right internal jugular [place]/Cordis, right radial arterial line, mediastinal and left pleural chest tubes all remaining present. Patient did have T max last night 102F which came down nicely with acetaminophen, white blood cell count 9.6, no evidence of infection. His blood pressure was quite labile yesterday afternoon after surgery,remains stable this morning. Objective - Vital Signs Vital signs: Vital Signs Temp 101.3 F H 02/25/20 00:00 Pulse 73 02/25/20 07:40 Resp 26 H 02/25/20 07:00 BP 110/54 02/25/20 07:00 Pulse Ox 100 02/25/20 07:00 Intake & Output 02/24/20 02/25/20 02/25/20 18:59 06:59 18:59 Intake Total 798.339 5225.794 15.255 Output Total 2860 1653 Balance -2039.187 1223.794 15.255 Weight 100.2 kg Intake: IV 760.2 2312.742 Albumin Human 5% 250 ml 500 1250 In Empty Bag 1 bag @ 250 mls/hr IVPB Q1HR PRN Rx#: [id number] Cardiac Output 0.9 50 290 Milrinone-D5w Pmx 20 mg 17.2 5.742 In Dextrose/Water 1 100ml .bag @ 0.3 MCG/KG/MIN 8. 613 mls/hr IV .[id number] RAPHAEL Rx#:[id number] Pressure Bags 9 117 Sodium Chloride 0.9% 1, 150 650 000 ml @ 50 mls/hr IV . Q20H RAPHAEL Rx#:[id number] Intake, IV Titration 60.613 564.052 15.255 Amount Clevidipine Butyrate 25 24.900 18.3 mg In Empty Bag 1 bag @ 1 MG/HR 2 mls/hr IV .Q24H RAPHAEL Rx#:[id number] Dexmedetomidine/0.9% NaCl 3.35 96.65 8.642 (Pmx) 400 mcg In Empty Bag 1 bag @ Titrate IV . Q0M RAPHAEL Rx#:[id number] Insulin Regular 100 unit 5.901 17.280 In Sodium Chloride 0.9% 100 ml @ Per Protocol IV .Q0M RAPHAEL Rx#:[id number] Milrinone-D5w Pmx 20 mg 22.537 48.616 In Dextrose/Water 1 100ml .bag @ 0.3 MCG/KG/MIN 8. 613 mls/hr IV .[id number] RAPHAEL Rx#:[id number] Nitroglycerin-D5w Pmx 50 3.925 mg In Dextrose/Water 1 250ml.bag @ 5 MCG/MIN 1.5 mls/hr IV .Q24H RAPHAEL Rx#: [id number] ceFAZolin 2 gm In Sodium 100 Chloride 0.9% 50 ml @ 100 mls/hr IVPB Q8HR RAPHAEL Rx# :[id number] propofoL 1,000 mg In 283.206 6.613 Empty Bag 1 bag @ Titrate IV .Q0M RAPHAEL Rx#: [id number] Output: Chest Tube Drainage 690 980 Bilateral Mediastinal 400 470 Left Anterior Chest 290 510 Drainage 200 Right Calf 200 Urine 670 473 Estimated Blood Loss 1500 Other: Voiding Method Indwelling Catheter ABP, PAP, CO, CI - Last Documented Arterial Blood Pressure 112/37 Pulmonary Artery Pressure 25/14 Cardiac Output 5.9 Cardiac Index 2.7 - Constitutional General appearance: Present: cooperative, no acute distress - Respiratory Details: Lung sounds diminished bilaterally. Respirations even, nonlabored on mechanical ventilation. Current ventilator settings assist control mode, FiO2 50%, tidal volume 500, respiratory rate 26, PEEP 5. Oxygen saturation 100% and ABGs this morning 7.4/36/103/22/-3.1 on those ventilator settings. Mediastinal chest tube and left pleural chest tube present to continuous wall suction, no air leaks present. Mediastinal chest tube with 220 mL serosanguineous drainage overnight, 870 mL since surgery. Left pleural chest tube with 250 mL serosanguineous drainage overnight, 800 mL since surgery. - Cardiovascular Details: S1, S2 present. Regular rate and rhythm, sinus rhythm on telemetry. Sternum stable. Atrial epicardial pacemaker wires present, grounded. Palpable peripheral pulses bilaterally. Trace bilateral lower extremity edema present. No calf pain or tenderness noted.right internal jugular [place]/Cordis, right rad ial arterial line present. Last CO/CI 4.9/2.3 on 0.1 mcg/kg/min of Primacor. Heart hugger, antiembolism stockings, SCDs present. - Gastrointestinal Gastrointestinal Comment(s): Abdomen soft, nontender, nondistended. Hypoactive bowel sounds present 4 quadr ants. OG tube present to low intermittent wall suction with output blood-tinged with sediment. - Genitourinary Genitourinary Comment(s): Dwyer present draining clear, yellow urine. Output 25-35 mL/h overnight - Integumentary Integumentary Comment(s): Skin is warm and dry with evidence of good perfusion. Anterior chest incision well approximated and covered with dry intact dressing. Left radial artery harvest site well approximated, RL drain present with minimal serosanguineous drainage. Skin to left hand is warm, patient is able to wiggle his fingers, good cap refill. Right lower semi-EVH site well approximated, RL drain present with 200 mL serosanguineous drainage overnight. - Neurologic Neurologic: Present: CNII-XII intact - Musculoskeletal Musculoskeletal: Present: strength equal bilaterally - Psychiatric Psychiatric Comment(s): patient's currently alert, moves all extremities, follows all commands, nods head yes and shakes had no appropriately - Allied health notes Allied health notes reviewed: nursing - Labs CBC & Chem 7: 02/25/20 04:00 02/25/20 04:00 Labs: Abnormal Lab Results - Last 24 Hours (Table) 02/19/20 02/24/20 02/24/20 Range/Units 13:43 08:35 10:35 WBC (3.8-10.6) k/uL RBC (4.30-5.90) m/uL Hgb (13.0-17.5) gm/dL Hct (39.0-53.0) % Plt Count (150-450) k/uL Neutrophils # (1.3-7.7) k/uL Lymphocytes # (1.0-4.8) k/uL ABG pH 7.34 L (7.35-7.45) ABG pCO2 48 H (35-45) mmHg ABG pO2 153 H 193 H (83-108) mmHg ABG HCO3 26 H (21-25) mmol/L ABG Total CO2 26 H 27 H (19-24) mmol/L ABG O2 Saturation 99.0 H 99.5 H (94-97) % ABG Hematocrit (34.0-46.0) % ABG Potassium (3.4-4.5) mmol/L ABG Ionized Calcium (4.5-5.3) mg/dL ABG Glucose 132 H 107 H (75-99) mg/dL Hemoglobin 12.6 L (13.0-17.5) gm/dL Chloride (98-107) mmol/L Glucose (74-99) mg/dL POC Glucose (mg/dL) (75-99) mg/dL Calcium (8.4-10.2) mg/dL Magnesium (1.6-2.3) mg/dL Alkaline Phosphatase (38-126) U/L Total Protein (6.3-8.2) g/dL Albumin (3.5-5.0) g/dL Arterial Blood Potassium (3.4-4.5) mmol/L Arterial Blood Glucose 132 H 107 H (75-99) mg/dL Crossmatch See Detail 02/24/20 02/24/20 02/24/20 Range/Units 11:53 12:30 13:01 WBC (3.8-10.6) k/uL RBC (4.30-5.90) m/uL Hgb (13.0-17.5) gm/dL Hct (39.0-53.0) % Plt Count (150-450) k/uL Neutrophils # (1.3-7.7) k/uL Lymphocytes # (1.0-4.8) k/uL ABG pH 7.34 L (7.35-7.45) ABG pCO2 46 H (35-45) mmHg ABG pO2 267 H 225 H 217 H (83-108) mmHg ABG HCO3 (21-25) mmol/L ABG Total CO2 26 H 26 H 26 H (19-24) mmol/L ABG O2 Saturation 99.7 H 99.7 H 99.7 H (94-97) % ABG Hematocrit 32 L 30 L 31 L (34.0-46.0) % ABG Potassium 4.9 H (3.4-4.5) mmol/L ABG Ionized Calcium 4.4 L 4.4 L 4.4 L (4.5-5.3) mg/dL ABG Glucose 158 H 148 H 129 H (75-99) mg/dL Hemoglobin 10.4 L 9.9 L 10.0 L (13.0-17.5) gm/dL Chloride (98-107) mmol/L Glucose (74-99) mg/dL POC Glucose (mg/dL) (75-99) mg/dL Calcium (8.4-10.2) mg/dL Magnesium (1.6-2.3) mg/dL Alkaline Phosphatase (38-126) U/L Total Protein (6.3-8.2) g/dL Albumin (3.5-5.0) g/dL Arterial Blood Potassium 4.9 H (3.4-4.5) mmol/L Arterial Blood Glucose 158 H 148 H 129 H (75-99) mg/dL Crossmatch 02/24/20 02/24/20 02/24/20 Range/Units 13:31 15:58 16:10 WBC 13.7 H (3.8-10.6) k/uL RBC 4.11 L (4.30-5.90) m/uL Hgb 12.4 L (13.0-17.5) gm/dL Hct 38.2 L (39.0-53.0) % Plt Count (150-450) k/uL Neutrophils # 11.5 H (1.3-7.7) k/uL Lymphocytes # (1.0-4.8) k/uL ABG pH (7.35-7.45) ABG pCO2 (35-45) mmHg ABG pO2 265 H (83-108) mmHg ABG HCO3 (21-25) mmol/L ABG Total CO2 26 H (19-24) mmol/L ABG O2 Saturation 99.7 H (94-97) % ABG Hematocrit 30 L (34.0-46.0) % ABG Potassium (3.4-4.5) mmol/L ABG Ionized Calcium 4.4 L (4.5-5.3) mg/dL ABG Glucose 132 H (75-99) mg/dL Hemoglobin 9.9 L (13.0-17.5) gm/dL Chloride (98-107) mmol/L Glucose (74-99) mg/dL POC Glucose (mg/dL) 115 H (75-99) mg/dL Calcium (8.4-10.2) mg/dL Magnesium (1.6-2.3) mg/dL Alkaline Phosphatase (38-126) U/L Total Protein (6.3-8.2) g/dL Albumin (3.5-5.0) g/dL Arterial Blood Potassium (3.4-4.5) mmol/L Arterial Blood Glucose 132 H (75-99) mg/dL Crossmatch 02/24/20 02/24/20 02/24/20 Range/Units 16:10 16:22 16:49 WBC (3.8-10.6) k/uL RBC (4.30-5.90) m/uL Hgb (13.0-17.5) gm/dL Hct (39.0-53.0) % Plt Count (150-450) k/uL Neutrophils # (1.3-7.7) k/uL Lymphocytes # (1.0-4.8) k/uL ABG pH 7.22 L (7.35-7.45) ABG pCO2 55 H (35-45) mmHg ABG pO2 153 H (83-108) mmHg ABG HCO3 (21-25) mmol/L ABG Total CO2 (19-24) mmol/L ABG O2 Saturation 99.0 H (94-97) % ABG Hematocrit (34.0-46.0) % ABG Potassium (3.4-4.5) mmol/L ABG Ionized Calcium (4.5-5.3) mg/dL ABG Glucose (75-99) mg/dL Hemoglobin (13.0-17.5) gm/dL Chloride 109 H (98-107) mmol/L Glucose 117 H (74-99) mg/dL POC Glucose (mg/dL) 180 H (75-99) mg/dL Calcium 8.0 L (8.4-10.2) mg/dL Magnesium 2.6 H (1.6-2.3) mg/dL Alkaline Phosphatase 37 L (38-126) U/L Total Protein 5.1 L (6.3-8.2) g/dL Albumin 3.1 L (3.5-5.0) g/dL Arterial Blood Potassium (3.4-4.5) mmol/L Arterial Blood Glucose (75-99) mg/dL Crossmatch 02/24/20 02/24/20 02/24/20 Range/Units 17:15 17:21 17:55 WBC 13.7 H (3.8-10.6) k/uL RBC 3.63 L (4.30-5.90) m/uL Hgb 11.5 L (13.0-17.5) gm/dL Hct 33.1 L (39.0-53.0) % Plt Count (150-450) k/uL Neutrophils # (1.3-7.7) k/uL Lymphocytes # (1.0-4.8) k/uL ABG pH 7.21 L (7.35-7.45) ABG pCO2 52 H (35-45) mmHg ABG pO2 150 H (83-108) mmHg ABG HCO3 (21-25) mmol/L ABG Total CO2 (19-24) mmol/L ABG O2 Saturation 99.2 H (94-97) % ABG Hematocrit (34.0-46.0) % ABG Potassium (3.4-4.5) mmol/L ABG Ionized Calcium (4.5-5.3) mg/dL ABG Glucose (75-99) mg/dL Hemoglobin (13.0-17.5) gm/dL Chloride (98-107) mmol/L Glucose (74-99) mg/dL POC Glucose (mg/dL) 177 H (75-99) mg/dL Calcium (8.4-10.2) mg/dL Magnesium (1.6-2.3) mg/dL Alkaline Phosphatase (38-126) U/L Total Protein (6.3-8.2) g/dL Albumin (3.5-5.0) g/dL Arterial Blood Potassium (3.4-4.5) mmol/L Arterial Blood Glucose (75-99) mg/dL Crossmatch 02/24/20 02/24/20 02/24/20 Range/Units 17:57 18:41 20:05 WBC 11.7 H (3.8-10.6) k/uL RBC 2.93 L (4.30-5.90) m/uL Hgb 9.0 L D (13.0-17.5) gm/dL Hct 27.1 L (39.0-53.0) % Plt Count 140 L (150-450) k/uL Neutrophils # 10.2 H (1.3-7.7) k/uL Lymphocytes # 0.8 L (1.0-4.8) k/uL ABG pH (7.35-7.45) ABG pCO2 (35-45) mmHg ABG pO2 130 H (83-108) mmHg ABG HCO3 (21-25) mmol/L ABG Total CO2 25 H (19-24) mmol/L ABG O2 Saturation 99.4 H (94-97) % ABG Hematocrit (34.0-46.0) % ABG Potassium (3.4-4.5) mmol/L ABG Ionized Calcium (4.5-5.3) mg/dL ABG Glucose (75-99) mg/dL Hemoglobin (13.0-17.5) gm/dL Chloride (98-107) mmol/L Glucose (74-99) mg/dL POC Glucose (mg/dL) 133 H (75-99) mg/dL Calcium (8.4-10.2) mg/dL Magnesium (1.6-2.3) mg/dL Alkaline Phosphatase (38-126) U/L Total Protein (6.3-8.2) g/dL Albumin (3.5-5.0) g/dL Arterial Blood Potassium (3.4-4.5) mmol/L Arterial Blood Glucose (75-99) mg/dL Crossmatch 02/24/20 02/24/20 02/24/20 Range/Units 20:14 22:04 23:07 WBC (3.8-10.6) k/uL RBC (4.30-5.90) m/uL Hgb (13.0-17.5) gm/dL Hct (39.0-53.0) % Plt Count (150-450) k/uL Neutrophils # (1.3-7.7) k/uL Lymphocytes # (1.0-4.8) k/uL ABG pH (7.35-7.45) ABG pCO2 (35-45) mmHg ABG pO2 (83-108) mmHg ABG HCO3 (21-25) mmol/L ABG Total CO2 (19-24) mmol/L ABG O2 Saturation (94-97) % ABG Hematocrit (34.0-46.0) % ABG Potassium (3.4-4.5) mmol/L ABG Ionized Calcium (4.5-5.3) mg/dL ABG Glucose (75-99) mg/dL Hemoglobin (13.0-17.5) gm/dL Chloride (98-107) mmol/L Glucose (74-99) mg/dL POC Glucose (mg/dL) 100 H 111 H 131 H (75-99) mg/dL Calcium (8.4-10.2) mg/dL Magnesium (1.6-2.3) mg/dL Alkaline Phosphatase (38-126) U/L Total Protein (6.3-8.2) g/dL Albumin (3.5-5.0) g/dL Arterial Blood Potassium (3.4-4.5) mmol/L Arterial Blood Glucose (75-99) mg/dL Crossmatch 02/25/20 02/25/20 02/25/20 Range/Units 00:04 01:04 01:55 WBC (3.8-10.6) k/uL RBC (4.30-5.90) m/uL Hgb (13.0-17.5) gm/dL Hct (39.0-53.0) % Plt Count (150-450) k/uL Neutrophils # (1.3-7.7) k/uL Lymphocytes # (1.0-4.8) k/uL ABG pH (7.35-7.45) ABG pCO2 (35-45) mmHg ABG pO2 (83-108) mmHg ABG HCO3 (21-25) mmol/L ABG Total CO2 (19-24) mmol/L ABG O2 Saturation (94-97) % ABG Hematocrit (34.0-46.0) % ABG Potassium (3.4-4.5) mmol/L ABG Ionized Calcium (4.5-5.3) mg/dL ABG Glucose (75-99) mg/dL Hemoglobin (13.0-17.5) gm/dL Chloride (98-107) mmol/L Glucose (74-99) mg/dL POC Glucose (mg/dL) 142 H 143 H 139 H (75-99) mg/dL Calcium (8.4-10.2) mg/dL Magnesium (1.6-2.3) mg/dL Alkaline Phosphatase (38-126) U/L Total Protein (6.3-8.2) g/dL Albumin (3.5-5.0) g/dL Arterial Blood Potassium (3.4-4.5) mmol/L Arterial Blood Glucose (75-99) mg/dL Crossmatch 02/25/20 02/25/20 02/25/20 Range/Units 02:59 03:59 04:00 WBC (3.8-10.6) k/uL RBC 2.69 L (4.30-5.90) m/uL Hgb 7.9 L (13.0-17.5) gm/dL Hct 24.8 L (39.0-53.0) % Plt Count 115 L (150-450) k/uL Neutrophils # (1.3-7.7) k/uL Lymphocytes # (1.0-4.8) k/uL ABG pH (7.35-7.45) ABG pCO2 (35-45) mmHg ABG pO2 (83-108) mmHg ABG HCO3 (21-25) mmol/L ABG Total CO2 (19-24) mmol/L ABG O2 Saturation (94-97) % ABG Hematocrit (34.0-46.0) % ABG Potassium (3.4-4.5) mmol/L ABG Ionized Calcium (4.5-5.3) mg/dL ABG Glucose (75-99) mg/dL Hemoglobin (13.0-17.5) gm/dL Chloride (98-107) mmol/L Glucose (74-99) mg/dL POC Glucose (mg/dL) 131 H 126 H (75-99) mg/dL Calcium (8.4-10.2) mg/dL Magnesium (1.6-2.3) mg/dL Alkaline Phosphatase (38-126) U/L Total Protein (6.3-8.2) g/dL Albumin (3.5-5.0) g/dL Arterial Blood Potassium (3.4-4.5) mmol/L Arterial Blood Glucose (75-99) mg/dL Crossmatch 02/25/20 02/25/20 02/25/20 Range/Units 04:00 04:59 05:48 WBC (3.8-10.6) k/uL RBC (4.30-5.90) m/uL Hgb (13.0-17.5) gm/dL Hct (39.0-53.0) % Plt Count (150-450) k/uL Neutrophils # (1.3-7.7) k/uL Lymphocytes # (1.0-4.8) k/uL ABG pH (7.35-7.45) ABG pCO2 (35-45) mmHg ABG pO2 (83-108) mmHg ABG HCO3 (21-25) mmol/L ABG Total CO2 (19-24) mmol/L ABG O2 Saturation 98.5 H (94-97) % ABG Hematocrit (34.0-46.0) % ABG Potassium (3.4-4.5) mmol/L ABG Ionized Calcium (4.5-5.3) mg/dL ABG Glucose (75-99) mg/dL Hemoglobin (13.0-17.5) gm/dL Chloride 110 H (98-107) mmol/L Glucose 112 H (74-99) mg/dL POC Glucose (mg/dL) 120 H (75-99) mg/dL Calcium 7.7 L (8.4-10.2) mg/dL Magnesium (1.6-2.3) mg/dL Alkaline Phosphatase 23 L (38-126) U/L Total Protein 4.5 L (6.3-8.2) g/dL Albumin 2.9 L (3.5-5.0) g/dL Arterial Blood Potassium (3.4-4.5) mmol/L Arterial Blood Glucose (75-99) mg/dL Crossmatch 02/25/20 02/25/20 Range/Units 05:50 06:56 WBC (3.8-10.6) k/uL RBC (4.30-5.90) m/uL Hgb (13.0-17.5) gm/dL Hct (39.0-53.0) % Plt Count (150-450) k/uL Neutrophils # (1.3-7.7) k/uL Lymphocytes # (1.0-4.8) k/uL ABG pH (7.35-7.45) ABG pCO2 (35-45) mmHg ABG pO2 (83-108) mmHg ABG HCO3 (21-25) mmol/L ABG Total CO2 (19-24) mmol/L ABG O2 Saturation (94-97) % ABG Hematocrit (34.0-46.0) % ABG Potassium (3.4-4.5) mmol/L ABG Ionized Calcium (4.5-5.3) mg/dL ABG Glucose (75-99) mg/dL Hemoglobin (13.0-17.5) gm/dL Chloride (98-107) mmol/L Glucose (74-99) mg/dL POC Glucose (mg/dL) 123 H 126 H (75-99) mg/dL Calcium (8.4-10.2) mg/dL Magnesium (1.6-2.3) mg/dL Alkaline Phosphatase (38-126) U/L Total Protein (6.3-8.2) g/dL Albumin (3.5-5.0) g/dL Arterial Blood Potassium (3.4-4.5) mmol/L Arterial Blood Glucose (75-99) mg/dL Crossmatch - Imaging and Cardiology Chest x-ray: image reviewed Assessment and Plan Assessment: 1. Triple-vessel coronary artery disease with thinned out distal anteroapical and inferior wall, unstable angina, status post four-vessel CABG 2. Mild to moderate mitral valve regurgitation 3. History of coronary artery disease status post prior stenting to the right coronary artery with inferior wall myocardial infarction 4. Chronic systolic heart failure with EF 40% 5. Diabetes mellitus with hemoglobin A1c 6.4% 6. Hypertension 7. Previous tobacco dependence with preoperative FEV1 86% of predicted and mild restrictive disease 8. Obstructive sleep apnea without home CPAP use 9. Daily marijuana use 10. Previous GI bleed with severe anemia 11. Strong family history of coronary artery disease with premature coronary artery disease, brother from myocardial infarction in his 40s. 12. Postoperative acute blood loss anemia, expected Plan: 1. Continue aspirin, statin, Plavix, beta jigna therapy. Will increase beta jigna therapy as tolerated. Will give additional Plavix today for a total of 150 mg due to endarterectomy of the LAD 2. Wean from mechanical ventilationand extubate. Bronchodilators per pulmonology. Once extubated encourage incentive spirometry is 10 times every hour while awake 3. Once extubated increase activity, ambulate as tolerated. PT/OT/cardiac rehab consulted 4. Will monitor daily labs and x-rays. Electrolyte replacement per protocol. No transfusion at this time 5. Will wean off Primacor. 6. Will eventually add calcium channel jigna for radial artery spasm prophylaxis once blood pressure will tolerate 7. May discontinue [place] later today, connect Cordis to continuous CVP monitoring 8. Will reintroduce home medications as tolerated 9. Insulin management per primary care service. Hemoglobin A1c 6.4% 10. Pain control current medication regimen 11. Will keep mediastinal, left pleural chest tubes for another 24 hours 12. Keep Dwyer for another 24 hours for accurate intake and output. 13. More recommendations to follow based on patient's progress Time with Patient: Greater than 30
[2020-02-25] MEDS ORDERED: PANTOPRAZOLE 40 MG/10 ML VIAL IVP SCH (09:00)
[2020-02-25] MEDS ORDERED: CLOPIDOGREL 75 MG TAB PO SCH (09:00)
[2020-02-25] MEDS ORDERED: bisacodyL 10 MG SUPP RECTAL PRN (09:00)
[2020-02-25] MEDS ORDERED: FERROUS SULFATE 325 MG TAB PO SCH (09:00)
[2020-02-25] MEDS ORDERED: MAGNESIUM HYDROXIDE 2,400 MG/10 ML CUP PO PRN (09:00)
[2020-02-25 09:12] LABS: Glucose,Whole Blood 157 mg/dL (75-99)
[2020-02-25 09:14] LABS: ABG Base Excess -2.7 mmol/L; ABG HCO3 22 mmol/L (21-25); ABG Oxygen Saturation 99.6 % (94-97); ABG PCO2 33 mmHg (35-45); ABG PH 7.43 (7.35-7.45); ABG PO2 142 mmHg (83-108); ABG TCO2 23 mmol/L (19-24)
[2020-02-25 09:18] LABS: Allen Test Performed? no
[2020-02-25] MEDS: HYDROcodone/APAP 5-325MG 1 EACH TAB PO PRN ×3 (09:43→19:40)
[2020-02-25] MEDS: SODIUM CHLORIDE 0.9% 1,000 ML IV SCH (09:59)
--- NOTE | 2020-02-25 10:08 | XR ---
EXAMINATION TYPE: XR chest 1V portable DATE OF EXAM: 02/25/2020 CLINICAL HISTORY: Postoperative cardiac surgery TECHNIQUE: Portable semiupright view of the chest COMPARISON: 02/24/2020 chest radiograph FINDINGS: Sternotomy wires, endotracheal tube, enteric tube, right internal jugular [place] cathet er, mediastinal drain, and left chest tube all with similar radiographic appearance since 02/24/2020. Scattered airspace opacities and left basilar atelectasis versus small left pleural effusion appears similar. No pneumothorax. IMPRESSION: Unchanged appearance of tubes and lines versus 02/24/2020. Similar mild infiltrates and l eft basilar atelectasis versus small left pleural effusion.
[2020-02-25 10:10] LABS: Glucose,Whole Blood 170 mg/dL (75-99)
--- NOTE | 2020-02-25 10:56 | P.CRDCN ---
History of Present Illness History of present illness: HISTORY OF PRESENTING ILLNESS This is a pleasant 69-year-old male past medical history significant for coronary artery disease, diabetes mellitus, hypertension, chronic systolic heart failure and dyslipidemia. He follows in the office with Dr. Hensley. We have been asked to see in consultation for bypass grafting. He underwent quadruple bypass yesterday with Dr. Sanz. He had a [place] to LAD, left radial artery to OM, SVG to diagonal branch and SVG to PDA. He is seen and examined sitting up in bed status post extubation. He is alert and communicating but still somewhat lethargic. His breathing is stable. He is in sinus mechanism on the monitor with frequent PVCs he has a right internal jugular [place], right radial arterial line, mediastinal and left pleural chest tube. He did have a temperature last night of 102F. Current blood pressure 131/29 with a heart rate of 75 pulmonary arterial pressure is 17/3. Laboratory data reviewed, pH 7.43, pCO2 33, pO2 142, bicarb 22, WBC 9.6, hemoglobin 7.9, platelets 115, sodium 137, potassium 4.1, creatinine 1.14, magnesium 2.1. Chest x-ray reveals mild infiltrates and left basilar atelectasis unchanged. Urine output 4513 mL in the previous 24 hours, mediastinal chest tube with 870 mL spelled the previous 24 hours, left anterior chest tube with 800 mL output the previous 24 hours. REVIEW OF SYSTEMS At the time of my exam: CONSTITUTIONAL: Denies fever or chills. CARDIOVASCULAR: Denies chest pain, shortness of breath, orthopnea, PND or palpitations. RESPIRATORY: Denies cough. GASTROINTESTINAL: Denies abdominal pain, diarrhea, constipation, nausea or vomiting. MUSCULOSKELETAL: Denies myalgias. NEUROLOGIC: Denies numbness, tingling or weakness. ENDOCRINE: Denies fatigue, weight change, polydipsia or polyurina. GENITOURINARY: Denies burning, hematuria or urgency with micturation. HEMATOLOGIC: Denies active bleeding. PHYSICAL EXAMINATION CONSTITUTIONAL: No apparent distress. HEENT: Head is normocephalic. Pupils are equal, round. Sclerae anicteric. Mucous membranes of the mouth are moist. No JVD. No carotid bruit. Right IJ swan in place. CHEST EXAMINATION: Lungs are clear to auscultation. No chest wall tenderness is noted on palpation or with deep breathing. Diminished. Mediastinal chest tube in place and left pelural chest tube in place. HEART EXAMINATION: Regular rate and rhythm. S1, S2 heard. Systolic ejection murmur at the left sternal border, no gallops or rub. Heart hugger in place. Sternal dressing intact. ABDOMEN: Soft, nontender. Positive bowel sounds. EXTREMITIES: 2+ peripheral pulses, no lower extremity edema and no calf tenderness. Right radial arterial line in place. NEUROLOGIC EXAMINATION: Patient is awake, alert and oriented. ASSESSMENT Coronary artery disease status post four-vessel bypass grafting Anemia Thrombocytopenia Chronic systolic heart failure Ischemic cardiomyopathy Valvular heart disease Hypertension Diabetes mellitus Dyslipidemia PLAN Continue current medical regimen. The patient is clinically hemodynamically stable. Continue dual antiplatelet therapy and beta blockers as currently prescribed. Recommend regular incentive spirometer use. We will continue to follow and make recommendations accordingly. Thank you kindly for this consultation. Nurse Practitioner note has been reviewed, I agree with a documented findings and plan of care. Patient was seen and examined. Past Medical History Past Medical History: Coronary Artery Disease (CAD), Cancer, Diabetes Mellitus, GI Bleed, Hyperlipidemia, Hypertension, Myocardial Infarction ([place]) Additional Past Medical History / Comment(s): hx ulcer/GI bleed 2014, skin cancer Last Myocardial Infarction Date:: 06/2006 History of Any Multi-Drug Resistant Organisms: None Reported Past Surgical History: Heart Catheterization, Heart Catheterization With Stent, Hernia Repair, Orthopedic Surgery, Tonsillectomy Additional Past Surgical History / Comment(s): 3 cardiac STENTS, skin cancer removed from nose, surgery fx rt foot, Past Anesthesia/Blood Transfusion Reactions: Postoperative Nausea & Vomiting (PONV) Additional Past Anesthesia/Blood Transfusion Reaction / Comment(s): states "no problems with prior blood transfusions in 2014" Date of Last Stent Placement:: 06/13/2006 Smoking Status: Former smoker - Past Family History Brother(s) Additional Family Medical History / Comment(s): pacemaker, one of his brothers in his early 40s from myocardial infarction. Father Family Medical History: Cancer Additional Family Medical History / Comment(s): stomach CA Mother Family Medical History: Congestive Heart Failure (CHF) Medications and Allergies Home Medications Medication Instructions Recorded Confirmed Type Losartan Potassium 100 mg PO DAILY 04/27/15 02/24/20 History amLODIPine [Norvasc] 5 mg PO BID 04/27/15 02/24/20 History Ferrous Sulfate [Iron (65 MG 65 mg PO DAILY 06/16/15 02/24/20 History Elemental)] Pantoprazole Sodium [Protonix] 40 mg PO BID 06/21/15 02/24/20 History Aspirin [Adult Low Dose Aspirin EC] 81 mg PO HS 02/12/20 02/24/20 History Ezetimibe [Zetia] 10 mg PO HS 02/12/20 02/24/20 History Isosorbide Mononitrate [Isosorbide 30 mg PO DAILY 02/12/20 02/24/20 History Mononitrate ER] Metoprolol Succinate [Toprol XL] 100 mg PO DAILY 02/12/20 02/24/20 History Rosuvastatin Calcium [Crestor] 20 mg PO HS 02/12/20 02/24/20 History metFORMIN HCL [Glucophage] 500 mg PO BID 02/12/20 02/24/20 History Clopidogrel [Plavix] 75 mg PO DAILY 02/23/20 02/24/20 History Mupirocin 2% Oint [Bactroban 2% 1 applic NASAL BID 02/23/20 02/24/20 History Oint] Aspirin 325 mg PO ONCE 02/24/20 02/24/20 History Allergies Allergy/AdvReac Type Severity Reaction Status Date / Time No Known Allergies Allergy Verified 02/24/20 05:58 Physical Exam Vitals: Vital Signs Temp Pulse Resp BP Pulse Ox 02/25/20 08:00 37.3 F L 70 26 H 97 02/25/20 07:45 66 26 H 97 02/25/20 07:40 73 02/25/20 07:30 73 26 H 100 02/25/20 07:15 71 26 H 100 02/25/20 07:00 73 26 H 110/54 100 02/25/20 06:30 78 33 H 99 02/25/20 06:00 85 30 H 100 02/25/20 05:30 79 26 H 100 02/25/20 05:00 83 26 H 104/50 98 02/25/20 04:30 85 26 H 99 02/25/20 04:00 80 26 H 96 02/25/20 03:30 80 26 H 100 02/25/20 03:00 80 26 H 96/48 100 02/25/20 02:30 80 26 H 100 10/15/20 02:00 80 26 H 99/46 100 1015/20 01:30 80 26 H 99 1520 01:00 77 26 H 93/55 100 101520 00:45 77 26 H 99 /15/20 00:30 81 26 H 99 15/20 00:15 81 26 H 98 15/20 00:14 83 26 H 99 1520 00:00 101.3 F H 82 26 H 98 1014/20 23:45 86 26 H 100 10/14/20 23:30 84 26 H 100 10/14/20 23:15 86 26 H 106/55 99 14/20 23:00 102.0 F H 85 26 H 100 1014/20 22:45 81 26 H 100 1014/20 22:30 77 26 H 117/56 100 10/14/20 22:15 77 26 H 117/56 100 14/20 22:00 78 26 H 100 1014/20 21:45 77 26 H 96/48 100 1014/20 21:30 77 26 H 100 1014/20 21:15 78 26 H 96/48 100 10/14/20 21:00 80 26 H 100 1014/20 20:45 80 26 H 93/52 100 1014/20 20:30 82 26 H 100 10/14/20 20:15 84 26 H 93/52 100 10/14/20 20:00 84 26 H 100 10/14/20 19:51 86 1014/20 19:45 92 26 H 100 10/14/20 19:30 101.7 F H 87 26 H 100 10/14/20 19:28 87 10/14/20 19:15 81 26 H 102/52 100 10/14/20 19:00 80 26 H 100 10/14/20 18:45 78 26 H 100 10/14/20 18:30 75 26 H 104/53 100 10/14/20 18:15 82 26 H 104/53 100 10/14/20 18:00 85 26 H 100 10/14/20 17:45 90 26 H 100 10/14/20 17:30 90 26 H 100 10/14/20 17:15 98 24 99 10/14/20 17:00 37.4 F L 93 23 100 02/24/20 16:45 81 14 100 02/24/20 16:30 107 H 19 95 02/24/20 16:15 85 12 136/69 97 02/24/20 16:00 35.5 F L 80 13 100 02/24/20 15:49 27 H 100 Intake and Output 02/24/20 02/25/20 02/25/20 22:59 06:59 14:59 Intake Total 3559.899 8885.722 440.988 Output Total 3555 958 42 Balance -1815.115 965.722 398.988 Intake: IV 9891.733 7260 381.94 Albumin Human 5% 250 ml 1000 750 250 In Empty Bag 1 bag @ 250 mls/hr IVPB Q1HR PRN Rx#: [id number] Cardiac Output 0.9 140 200 20 Milrinone-D5w Pmx 20 mg 22.942 2.94 In Dextrose/Water 1 100ml .bag @ 0.3 MCG/KG/MIN 8. 613 mls/hr IV .[id number] [facility] Rx#:[id number] Pressure Bags 45 81 9 Sodium Chloride 0.9% 1, 350 450 50 000 ml @ 50 mls/hr IV . Q20H [facility] Rx#:[id number] ceFAZolin 2,000 mg In 50 Sodium Chloride 0.9% 30 ml @ Per Protocol IVPB ONCE ONE Rx#:[id number] Intake, IV Titration 181.943 442.722 59.048 Amount Clevidipine Butyrate 25 43.200 mg In Empty Bag 1 bag @ 1 MG/HR 2 mls/hr IV .Q24H [facility] Rx#:[id number] Dexmedetomidine/0.9% NaCl 3.35 96.65 18.662 (Pmx) 400 mcg In Empty Bag 1 bag @ Titrate IV . Q0M [facility] Rx#:[id number] Insulin Regular 100 unit 8.931 14.250 6.498 In Sodium Chloride 0.9% 100 ml @ Per Protocol IV .Q0M [facility] Rx#:[id number] Milrinone-D5w Pmx 20 mg 22.537 48.616 27.275 In Dextrose/Water 1 100ml .bag @ 0.3 MCG/KG/MIN 8. 613 mls/hr IV .[id number] [facility] Rx#:[id number] Nitroglycerin-D5w Pmx 50 3.925 mg In Dextrose/Water 1 250ml.bag @ 5 MCG/MIN 1.5 mls/hr IV .Q24H [facility] Rx#: [id number] ceFAZolin 2 gm In Sodium 100 Chloride 0.9% 50 ml @ 100 mls/hr IVPB Q8HR [facility] Rx# :[id number] propofoL 1,000 mg In 100 183.206 6.613 Empty Bag 1 bag @ Titrate IV .Q0M [facility] Rx#: [id number] Output: Chest Tube Drainage 1190 480 10 Bilateral Mediastinal 640 230 0 Left Anterior Chest 550 250 10 Drainage 200 Right Calf 200 Urine 865 278 32 Estimated Blood Loss 1500 Other: Voiding Method Indwelling Catheter Weight 100.2 kg ABP, PAP, CO, CI - Last 8 Hours Arterial Blood Pressure 120/39 Arterial Blood Pressure 98/38 Arterial Blood Pressure 130/45 Arterial Blood Pressure 113/42 Arterial Blood Pressure 112/37 Arterial Blood Pressure 128/36 Arterial Blood Pressure 147/39 Arterial Blood Pressure 132/39 Arterial Blood Pressure 116/40 Arterial Blood Pressure 122/38 Arterial Blood Pressure 116/39 Arterial Blood Pressure 114/40 Arterial Blood Pressure 109/41 Arterial Blood Pressure 119/35 Arterial Blood Pressure 101/38 Arterial Blood Pressure 112/40 Arterial Blood Pressure 130/43 Arterial Blood Pressure 117/40 Pulmonary Artery Pressure 29/8 Pulmonary Artery Pressure 25/14 Pulmonary Artery Pressure 24/15 Pulmonary Artery Pressure 23/13 Pulmonary Artery Pressure 25/14 Pulmonary Artery Pressure 28/14 Pulmonary Artery Pressure 29/16 Pulmonary Artery Pressure 23/12 Pulmonary Artery Pressure 24/14 Pulmonary Artery Pressure 28/15 Pulmonary Artery Pressure 26/16 Pulmonary Artery Pressure 26/16 Pulmonary Artery Pressure 24/15 Pulmonary Artery Pressure 23/13 Pulmonary Artery Pressure 23/14 Pulmonary Artery Pressure 24/14 Pulmonary Artery Pressure 20/13 Pulmonary Artery Pressure 23/15 Cardiac Output 4.9 Cardiac Output 5.9 Cardiac Output 5.9 Cardiac Output 6.4 Cardiac Output 6.1 Cardiac Output 5.6 Cardiac Output 5 Cardiac Index 2.3 Cardiac Index 2.7 Cardiac Index 2.7 Cardiac Index 3 Cardiac Index 2.8 Cardiac Index 2.6 Cardiac Index 2.3 Results 02/25/20 04:00 02/25/20 04:00 Cardiac Enzymes 02/24/20 02/25/20 Range/Units 16:10 04:00 AST 56 45 (17-59) U/L Coagulation 02/24/20 Range/Units 16:10 PT 11.4 (9.0-12.0) sec APTT 27.6 (22.0-30.0) sec CBC 02/24/20 02/24/20 02/24/20 Range/Units 16:10 17:55 20:05 WBC 13.7 H 13.7 H 11.7 H (3.8-10.6) k/uL RBC 4.11 L 3.63 L 2.93 L (4.30-5.90) m/uL Hgb 12.4 L 11.5 L 9.0 L D (13.0-17.5) gm/dL Hct 38.2 L 33.1 L 27.1 L (39.0-53.0) % Plt Count 153 160 140 L (150-450) k/uL 02/25/20 Range/Units 04:00 WBC 9.6 (3.8-10.6) k/uL RBC 2.69 L (4.30-5.90) m/uL Hgb 7.9 L (13.0-17.5) gm/dL Hct 24.8 L (39.0-53.0) % Plt Count 115 L (150-450) k/uL Comprehensive Metabolic Panel 02/24/20 02/25/20 Range/Units 16:10 04:00 Sodium 137 137 (137-145) mmol/L Potassium 4.4 4.1 (3.5-5.1) mmol/L Chloride 109 H 110 H (98-107) mmol/L Carbon Dioxide 25 23 (22-30) mmol/L BUN 12 16 (9-20) mg/dL Creatinine 0.89 1.14 (0.66-1.25) mg/dL Glucose 117 H 112 H (74-99) mg/dL Calcium 8.0 L 7.7 L (8.4-10.2) mg/dL AST 56 45 (17-59) U/L ALT 26 16 (4-49) U/L Alkaline Phosphatase 37 L 23 L (38-126) U/L Total Protein 5.1 L 4.5 L (6.3-8.2) g/dL Albumin 3.1 L 2.9 L (3.5-5.0) g/dL Current Medications Generic Name Dose Route Start Last Admin Trade Name Freq PRN Reason Stop Dose Admin Hydrocodone Bitart/Acetaminophen 2 each 02/25/20 03:06 02/24/20 23:33 Hydrocodone/Apap 5-325mg 1 Each Tab PO 2 each Q4HR PRN Administration Severe Pain Hydrocodone Bitart/Acetaminophen 1 each 02/25/20 03:06 Hydrocodone/Apap 5-325mg 1 Each Tab PO Q4HR PRN Moderate Pain Albuterol/Ipratropium 3 ml 02/24/20 15:17 Ipratropium-Albuterol 3 Ml Neb INHALATION RT-Q2H PRN Shortness Of Breath Or Wheezing Albuterol/Ipratropium 3 ml 02/24/20 21:07 02/25/20 07:30 Ipratropium-Albuterol 3 Ml Neb INHALATION 3 ml RT-QID [facility] Administration Aspirin 325 mg 02/25/20 09:00 02/25/20 08:00 Aspirin 325 Mg Tab PO 325 mg DAILY [facility] Administration Atorvastatin Calcium 40 mg 02/25/20 09:00 02/25/20 08:00 Atorvastatin 40 Mg Tab PO 40 mg DAILY [facility] Administration Benzocaine/Menthol 1 each 02/24/20 15:17 Benzocaine/Menthol Lozeng 1 Each Lozenge MUCOUS MEM Q2H PRN Sore Throat Bisacodyl 10 mg 02/25/20 09:00 Bisacodyl 10 Mg Supp RECTAL DAILY PRN Constipation Clopidogrel Bisulfate 75 mg 02/25/20 09:00 02/25/20 08:00 Clopidogrel 75 Mg Tab PO 75 mg DAILY [facility] Administration Ezetimibe 10 mg 02/24/20 21:00 02/24/20 21:47 Ezetimibe 10 Mg Tab PO 10 mg HS [facility] Administration Ferrous Sulfate 325 mg 02/25/20 09:00 02/25/20 08:00 Ferrous Sulfate 325 Mg Tab PO 325 mg DAILY [facility] Administration Heparin Sodium (Porcine) 5,000 unit 02/24/20 23:07 02/25/20 08:00 Heparin Sodium,Porcine 5,000 Unit/Ml 1 Ml Vial SQ 5,000 unit Q8HR [facility] Administration Hydralazine HCl 10 mg 02/24/20 15:17 02/24/20 16:04 Hydralazine Hcl 20 Mg/Ml 1 Ml Vial IVP 10 mg Q1H PRN Administration Blood Pressure - High Clevidipine 25 mg/ IV Solution 50 mls @ 2 mls/hr 02/24/20 15:17 02/24/20 19:39 IV 0 mg/hr .Q24H [facility] 0 mls/hr Titration Protocol 1 MG/HR Amiodarone HCl 150 mg/ 103 mls @ 618 mls/hr 02/24/20 15:17 Dextrose/Water IV .Q10M PRN A.FIB/FLUTTER Protocol Amiodarone HCl 360 mg/ 200 mls @ 33.333 mls/hr 02/24/20 15:17 Dextrose/Water IV .Q6H PRN A.FIB/FLUTTER Protocol 1 MG/MIN Amiodarone HCl 300 mg/ 250 mls @ 25 mls/hr 02/24/20 15:17 Dextrose/Water IV .Q10H PRN A.FIB/FLUTTER Protocol 0.5 MG/MIN Albumin Human 250 ml/ IV 250 mls @ 250 mls/hr 02/24/20 15:17 02/25/20 07:58 Solution IVPB 02/26/20 15:18 250 mls/hr Q1HR PRN Administration For Volume Propofol 1,000 mg/ IV Solution 100 mls @ 0 mls/hr 02/24/20 15:17 02/25/20 07:40 IV 0 mcg/kg/min .Q0M [facility] 0 mls/hr Titration Protocol Titrate Dexmedetomidine HCl 400 mcg/ 100 mls @ 0 mls/hr 02/24/20 15:17 02/25/20 08:25 IV Solution IV 02/25/20 15:17 0.3 mcg/kg/hr .Q0M [facility] 7.515 mls/hr Titration Protocol Titrate Insulin Human Regular 100 unit 101 mls @ 0 mls/hr 02/24/20 15:17 02/25/20 08:13 / Sodium Chloride IV 0 units/hr .Q0M [facility] 0 mls/hr Titration Protocol Per Protocol Sodium Chloride 1,000 mls @ 50 mls/hr 02/24/20 15:17 02/24/20 18:07 Saline 0.9% IV 50 mls/hr .Q20H [facility] Administration Milrinone Lactate/Dextrose 20 100 mls @ 8.613 mls/hr 02/24/20 15:17 02/25/20 07:30 mg/ IV Solution IV 0.1 mcg/kg/min .[id number] [facility] 2.871 mls/hr Infusion 0.3 MCG/KG/MIN Ketorolac Tromethamine 15 mg 02/24/20 18:00 02/25/20 05:39 Ketorolac 15 Mg/Ml 1 Ml Vial IVP 02/27/20 16:34 15 mg Q6HR [facility] Administration Magnesium Hydroxide 2,400 mg 02/25/20 09:00 Magnesium Hydroxide 2,400 Mg/10 Ml Cup PO BID PRN Constipation Metoclopramide HCl 10 mg 02/24/20 15:17 Metoclopramide 5 Mg/Ml 2 Ml Vial IVP Q4H PRN Nausea And Vomiting Metoprolol Tartrate 12.5 mg 02/24/20 21:00 02/24/20 21:47 Metoprolol Tartrate 12.5 Mg Tab PO 12.5 mg BID [facility] Administration Miscellaneous Information 1 each 02/24/20 15:17 Potassium Replacement Protocol 1 Each Misc MISCELLANE DAILY PRN Per Protocol Protocol Miscellaneous Information 1 each 02/24/20 15:17 Magnesium Replacement Protocol 1 Each Misc MISCELLANE DAILY PRN Per Protocol Protocol Miscellaneous Information 1 each 02/24/20 15:17 Phosphorus Replacement Protoco 1 Each Misc MISCELLANE DAILY PRN Per Protocol Protocol Morphine Sulfate 2 mg 02/24/20 15:17 02/24/20 16:10 Morphine Sulfate 2 Mg/Ml Syringe IVP 2 mg Q2H PRN Administration Severe Pain Ondansetron HCl 4 mg 02/24/20 15:17 Ondansetron 4 Mg/2 Ml Vial IVP Q6HR PRN Nausea And Vomiting Pantoprazole Sodium 40 mg 02/25/20 09:00 02/25/20 08:00 Pantoprazole 40 Mg/10 Ml Vial IVP 40 mg DAILY [facility] Administration Senna/Docusate Sodium 2 each 02/25/20 21:00 Sennosides-Docusate Sodium 1 Each Tab PO HS [facility] Sodium Chloride 10 ml 02/24/20 21:00 02/25/20 08:33 Sodium Chloride 0.9% Flush 10 Ml Syringe IV Not Given BID [facility] Intake and Output 02/24/20 02/25/20 02/25/20 22:59 06:59 14:59 Intake Total 2190.862 5356.722 440.988 Output Total 3555 958 42 Balance -1815.115 965.722 398.988 Intake: IV 0587.080 6910 381.94 Albumin Human 5% 250 ml 1000 750 250 In Empty Bag 1 bag @ 250 mls/hr IVPB Q1HR PRN Rx#: [id number] Cardiac Output 0.9 140 200 20 Milrinone-D5w Pmx 20 mg 22.942 2.94 In Dextrose/Water 1 100ml .bag @ 0.3 MCG/KG/MIN 8. 613 mls/hr IV .[id number] [facility] Rx#:[id number] Pressure Bags 45 81 9 Sodium Chloride 0.9% 1, 350 450 50 000 ml @ 50 mls/hr IV . Q20H [facility] Rx#:[id number] ceFAZolin 2,000 mg In 50 Sodium Chloride 0.9% 30 ml @ Per Protocol IVPB ONCE ONE Rx#:[id number] Intake, IV Titration 181.943 442.722 59.048 Amount Clevidipine Butyrate 25 43.200 mg In Empty Bag 1 bag @ 1 MG/HR 2 mls/hr IV .Q24H [facility] Rx#:[id number] Dexmedetomidine/0.9% NaCl 3.35 96.65 18.662 (Pmx) 400 mcg In Empty Bag 1 bag @ Titrate IV . Q0M [facility] Rx#:[id number] Insulin Regular 100 unit 8.931 14.250 6.498 In Sodium Chloride 0.9% 100 ml @ Per Protocol IV .Q0M [facility] Rx#:[id number] Milrinone-D5w Pmx 20 mg 22.537 48.616 27.275 In Dextrose/Water 1 100ml .bag @ 0.3 MCG/KG/MIN 8. 613 mls/hr IV .[id number] [facility] Rx#:[id number] Nitroglycerin-D5w Pmx 50 3.925 mg In Dextrose/Water 1 250ml.bag @ 5 MCG/MIN 1.5 mls/hr IV .Q24H [facility] Rx#: [id number] ceFAZolin 2 gm In Sodium 100 Chloride 0.9% 50 ml @ 100 mls/hr IVPB Q8HR [facility] Rx# :[id number] propofoL 1,000 mg In 100 183.206 6.613 Empty Bag 1 bag @ Titrate IV .Q0M [facility] Rx#: [id number] Output: Chest Tube Drainage 1190 480 10 Bilateral Mediastinal 640 230 0 Left Anterior Chest 550 250 10 Drainage 200 Right Calf 200 Urine 865 278 32 Estimated Blood Loss 1500 Other: Voiding Method Indwelling Catheter Weight 100.2 kg 02/25/20 04:00 02/25/20 04:00
[2020-02-25 11:10] LABS: Glucose,Whole Blood 171 mg/dL (75-99)
[2020-02-25 12:13] LABS: Glucose,Whole Blood 148 mg/dL (75-99)
[2020-02-25 13:08] LABS: Glucose,Whole Blood 144 mg/dL (75-99)
--- NOTE | 2020-02-25 13:52 | P.PN ---
Subjective Progress Note Date: 02/25/20 Principal diagnosis: Status post CABG. Postoperative day #1 This is a 69-year-old white male with known history of coronary artery disease, previous [place] in 2006, multiple prior stent placements, hypertension, dyslipidemia, history of GI bleeding with anemia, and strong family history of coronary artery disease premature, less than 60 years of age. Remote history of smoking quit smoking in 1983, occasional marijuana use, patient was seen recently by cardiology, and he underwent cardiac catheterization to evaluate symptoms of angina/unstable angina. His cardiac catheterization showed multivessel coronary artery disease, with 90% stenosis of LAD, 90% stenosis of circumflex, there was a, left main, obtuse marginal with 50%, and proximal RCA 70% in stent stenosis. Patient was advised aggressive risk factors modifications, and considering that the ostial LAD and circumflex disease noted to be heavily calcified, CABG was recommended. Today the patient underwent myocardial revascularization. Postoperatively, patient was on mechanical ventilation, and I was asked to see him on consultation. Preop spirometry showed that the patient had FEV1 of 86%, FEV1/FVC was normal. Postoperative chest x-ray showed no evidence of active disease, endotracheal tube, [place] c atheter, and other tubes were noted to be in proper position patient is sedated, patient is now on clevidipine for elevated blood pressure, his also on milrinone and on nitroglycerin. Chest x-ray was reviewed ventilator settings were also reviewed and he is now on assist control mode of mechanical ventilation rate of 12 tidal volume is 550, FiO2 on the percent and PEEP of 5 ABG showed a pO2 of 15 3 pCO2 of 55 pH of 7.22, hence will increase rate up to 18. Patient was reevaluated today on 02/25/20, patient is postoperative day #1, status post quadruple coronary artery bypass grafting using [place] to LAD, left radial artery from aorta to second obtuse margin artery reverse saphenous vein graft from the aorta to the diagonal artery and reverse saphenous vein graft from the aorta to the posterior descending artery. Patient remains on mechanical ventilation overnight, he was noted later after transferred to the ICU from the OR to have a synchrony with mechanical ventilation, he was at the [facility] on Precedex, and was poorly ventilating. Hence I had to give the patient 1 dose of Nimbex, discontinued the Precedex, placed the patient on propofol overnight. This morning he is back on propofol, he received only 1 dose of Nimbex last night, and he seems to be quite comfortable. Patient was given a short trial with a pressure support and CPAP, his weaning parameters were excellent, then I proceeded to extubating the patient uneventfully. Objective - Vital Signs Vital signs: Vital Signs Temp 37.4 F L 02/25/20 13:00 Pulse 80 02/25/20 13:00 Resp 22 02/25/20 13:00 BP 114/51 02/25/20 11:00 Pulse Ox 94 L 02/25/20 13:00 Intake & Output 02/24/20 02/25/20 02/25/20 18:59 06:59 18:59 Intake Total 246.096 7413.794 742.582 Output Total 2860 1653 316 Balance -2039.187 1223.794 426.582 Weight 100.2 kg Intake: IV 760.2 2312.742 667.10 Albumin Human 5% 250 ml 500 1250 250 In Empty Bag 1 bag @ 250 mls/hr IVPB Q1HR PRN Rx#: [id number] Cardiac Output 0.9 50 290 60 Milrinone-D5w Pmx 20 mg 17.2 5.742 13.10 In Dextrose/Water 1 100ml .bag @ 0.3 MCG/KG/MIN 8. 613 mls/hr IV .[id number] RAPHAEL Rx#:[id number] Pressure Bags 9 117 54 Sodium Chloride 0.9% 1, 150 650 240 000 ml @ 20 mls/hr IV . Q24H RAPHAEL Rx#:[id number] ceFAZolin 2,000 mg In 50 Sodium Chloride 0.9% 30 ml @ Per Protocol IVPB ONCE ONE Rx#:[id number] Intake, IV Titration 60.613 564.052 75.482 Amount Clevidipine Butyrate 25 24.900 18.3 mg In Empty Bag 1 bag @ 1 MG/HR 2 mls/hr IV .Q24H RAPHAEL Rx#:[id number] Dexmedetomidine/0.9% NaCl 3.35 96.65 21.167 (Pmx) 400 mcg In Empty Bag 1 bag @ Titrate IV . Q0M RAPHAEL Rx#:[id number] Insulin Regular 100 unit 5.901 17.280 20.427 In Sodium Chloride 0.9% 100 ml @ Per Protocol IV .Q0M RAPHAEL Rx#:[id number] Milrinone-D5w Pmx 20 mg 22.537 48.616 27.275 In Dextrose/Water 1 100ml .bag @ 0.3 MCG/KG/MIN 8. 613 mls/hr IV .[id number] RAPHAEL Rx#:[id number] Nitroglycerin-D5w Pmx 50 3.925 mg In Dextrose/Water 1 250ml.bag @ 5 MCG/MIN 1.5 mls/hr IV .Q24H RAPHAEL Rx#: [id number] ceFAZolin 2 gm In Sodium 100 Chloride 0.9% 50 ml @ 100 mls/hr IVPB Q8HR RAPHAEL Rx# :[id number] propofoL 1,000 mg In 283.206 6.613 Empty Bag 1 bag @ Titrate IV .Q0M RAPHAEL Rx#: [id number] Output: Chest Tube Drainage 690 980 140 Bilateral Mediastinal 400 470 40 Left Anterior Chest 290 510 100 Drainage 200 Right Calf 200 Urine 670 473 176 Estimated Blood Loss 1500 Other: Voiding Method Indwelling Catheter Indwelling Catheter ABP, PAP, CO, CI - Last Documented Arterial Blood Pressure 133/33 Pulmonary Artery Pressure 19/6 Cardiac Output 7.9 Cardiac Index 3.7 - Exam Physical Exam: Revealed 69-year-old white male on mechanical ventilation, arousable, follows simple instructions. Head: Atraumatic, normocephalic. HEENT:[Neck is supple.] [No neck masses.] [No thyromegaly.] [No JVD.] Endotracheal tube and orogastric tubes are intact. Chest: Symmetrical chest expansion [no crackles or rhonchi or wheezes.Mediastinal chest tube with 220 mL serosanguineous drainage overnight, 870 mL since surgery. Left pleural chest tube with 250 mL serosanguineous drainage overnight, 800 mL since surgery. Cardiac Exam: Normal S1 and S2, no S3 gallop, positive pericardial rub. No murmur.Sternum stable. Atrial epicardial pacemaker wires present, grounded. Palpable peripheral pulses bilaterally. Trace bilateral lower extremity edema present. No calf pain or tenderness noted.right internal jugular [place], right radial arterial line present. Last CO/CI 4.9/2.3 on 0.1 mcg/kg/min of Primacor. Heart hugger, antiembolism stockings, SCDs present. Abdomen: [Soft, nontender, no megaly, no rebound, no guarding, normal bowel sounds.] Extremities: [No clubbing, no edema, no cyanosis.] Neurological Exam: Arousable, follows simple instructions on mechanical ventila tion. Psychiatric: Normal mood, affect, Skin: No rashes - Labs CBC & Chem 7: 02/25/20 04:00 02/25/20 04:00 Labs: Abnormal Lab Results - Last 24 Hours (Table) 02/19/20 02/24/20 02/24/20 Range/Units 13:43 08:35 10:35 WBC (3.8-10.6) k/uL RBC (4.30-5.90) m/uL Hgb (13.0-17.5) gm/dL Hct (39.0-53.0) % Plt Count (150-450) k/uL Neutrophils # (1.3-7.7) k/uL Lymphocytes # (1.0-4.8) k/uL ABG pH 7.34 L (7.35-7.45) ABG pCO2 48 H (35-45) mmHg ABG pO2 153 H 193 H (83-108) mmHg ABG HCO3 26 H (21-25) mmol/L ABG Total CO2 26 H 27 H (19-24) mmol/L ABG O2 Saturation 99.0 H 99.5 H (94-97) % ABG Hematocrit (34.0-46.0) % ABG Potassium (3.4-4.5) mmol/L ABG Ionized Calcium (4.5-5.3) mg/dL ABG Glucose 132 H 107 H (75-99) mg/dL Hemoglobin 12.6 L (13.0-17.5) gm/dL Chloride (98-107) mmol/L Glucose (74-99) mg/dL POC Glucose (mg/dL) (75-99) mg/dL Calcium (8.4-10.2) mg/dL Magnesium (1.6-2.3) mg/dL Alkaline Phosphatase (38-126) U/L Total Protein (6.3-8.2) g/dL Albumin (3.5-5.0) g/dL Arterial Blood Potassium (3.4-4.5) mmol/L Arterial Blood Glucose 132 H 107 H (75-99) mg/dL Crossmatch See Detail 02/24/20 02/24/20 02/24/20 Range/Units 11:53 12:30 13:01 WBC (3.8-10.6) k/uL RBC (4.30-5.90) m/uL Hgb (13.0-17.5) gm/dL Hct (39.0-53.0) % Plt Count (150-450) k/uL Neutrophils # (1.3-7.7) k/uL Lymphocytes # (1.0-4.8) k/uL ABG pH 7.34 L (7.35-7.45) ABG pCO2 46 H (35-45) mmHg ABG pO2 267 H 225 H 217 H (83-108) mmHg ABG HCO3 (21-25) mmol/L ABG Total CO2 26 H 26 H 26 H (19-24) mmol/L ABG O2 Saturation 99.7 H 99.7 H 99.7 H (94-97) % ABG Hematocrit 32 L 30 L 31 L (34.0-46.0) % ABG Potassium 4.9 H (3.4-4.5) mmol/L ABG Ionized Calcium 4.4 L 4.4 L 4.4 L (4.5-5.3) mg/dL ABG Glucose 158 H 148 H 129 H (75-99) mg/dL Hemoglobin 10.4 L 9.9 L 10.0 L (13.0-17.5) gm/dL Chloride (98-107) mmol/L Glucose (74-99) mg/dL POC Glucose (mg/dL) (75-99) mg/dL Calcium (8.4-10.2) mg/dL Magnesium (1.6-2.3) mg/dL Alkaline Phosphatase (38-126) U/L Total Protein (6.3-8.2) g/dL Albumin (3.5-5.0) g/dL Arterial Blood Potassium 4.9 H (3.4-4.5) mmol/L Arterial Blood Glucose 158 H 148 H 129 H (75-99) mg/dL Crossmatch 02/24/20 02/24/20 02/24/20 Range/Units 13:31 15:58 16:10 WBC 13.7 H (3.8-10.6) k/uL RBC 4.11 L (4.30-5.90) m/uL Hgb 12.4 L (13.0-17.5) gm/dL Hct 38.2 L (39.0-53.0) % Plt Count (150-450) k/uL Neutrophils # 11.5 H (1.3-7.7) k/uL Lymphocytes # (1.0-4.8) k/uL ABG pH (7.35-7.45) ABG pCO2 (35-45) mmHg ABG pO2 265 H (83-108) mmHg ABG HCO3 (21-25) mmol/L ABG Total CO2 26 H (19-24) mmol/L ABG O2 Saturation 99.7 H (94-97) % ABG Hematocrit 30 L (34.0-46.0) % ABG Potassium (3.4-4.5) mmol/L ABG Ionized Calcium 4.4 L (4.5-5.3) mg/dL ABG Glucose 132 H (75-99) mg/dL Hemoglobin 9.9 L (13.0-17.5) gm/dL Chloride (98-107) mmol/L Glucose (74-99) mg/dL POC Glucose (mg/dL) 115 H (75-99) mg/dL Calcium (8.4-10.2) mg/dL Magnesium (1.6-2.3) mg/dL Alkaline Phosphatase (38-126) U/L Total Protein (6.3-8.2) g/dL Albumin (3.5-5.0) g/dL Arterial Blood Potassium (3.4-4.5) mmol/L Arterial Blood Glucose 132 H (75-99) mg/dL Crossmatch 02/24/20 02/24/20 02/24/20 Range/Units 16:10 16:22 16:49 WBC (3.8-10.6) k/uL RBC (4.30-5.90) m/uL Hgb (13.0-17.5) gm/dL Hct (39.0-53.0) % Plt Count (150-450) k/uL Neutrophils # (1.3-7.7) k/uL Lymphocytes # (1.0-4.8) k/uL ABG pH 7.22 L (7.35-7.45) ABG pCO2 55 H (35-45) mmHg ABG pO2 153 H (83-108) mmHg ABG HCO3 (21-25) mmol/L ABG Total CO2 (19-24) mmol/L ABG O2 Saturation 99.0 H (94-97) % ABG Hematocrit (34.0-46.0) % ABG Potassium (3.4-4.5) mmol/L ABG Ionized Calcium (4.5-5.3) mg/dL ABG Glucose (75-99) mg/dL Hemoglobin (13.0-17.5) gm/dL Chloride 109 H (98-107) mmol/L Glucose 117 H (74-99) mg/dL POC Glucose (mg/dL) 180 H (75-99) mg/dL Calcium 8.0 L (8.4-10.2) mg/dL Magnesium 2.6 H (1.6-2.3) mg/dL Alkaline Phosphatase 37 L (38-126) U/L Total Protein 5.1 L (6.3-8.2) g/dL Albumin 3.1 L (3.5-5.0) g/dL Arterial Blood Potassium (3.4-4.5) mmol/L Arterial Blood Glucose (75-99) mg/dL Crossmatch 02/24/20 02/24/20 02/24/20 Range/Units 17:15 17:21 17:55 WBC 13.7 H (3.8-10.6) k/uL RBC 3.63 L (4.30-5.90) m/uL Hgb 11.5 L (13.0-17.5) gm/dL Hct 33.1 L (39.0-53.0) % Plt Count (150-450) k/uL Neutrophils # (1.3-7.7) k/uL Lymphocytes # (1.0-4.8) k/uL ABG pH 7.21 L (7.35-7.45) ABG pCO2 52 H (35-45) mmHg ABG pO2 150 H (83-108) mmHg ABG HCO3 (21-25) mmol/L ABG Total CO2 (19-24) mmol/L ABG O2 Saturation 99.2 H (94-97) % ABG Hematocrit (34.0-46.0) % ABG Potassium (3.4-4.5) mmol/L ABG Ionized Calcium (4.5-5.3) mg/dL ABG Glucose (75-99) mg/dL Hemoglobin (13.0-17.5) gm/dL Chloride (98-107) mmol/L Glucose (74-99) mg/dL POC Glucose (mg/dL) 177 H (75-99) mg/dL Calcium (8.4-10.2) mg/dL Magnesium (1.6-2.3) mg/dL Alkaline Phosphatase (38-126) U/L Total Protein (6.3-8.2) g/dL Albumin (3.5-5.0) g/dL Arterial Blood Potassium (3.4-4.5) mmol/L Arterial Blood Glucose (75-99) mg/dL Crossmatch 02/24/20 02/24/20 02/24/20 Range/Units 17:57 18:41 20:05 WBC 11.7 H (3.8-10.6) k/uL RBC 2.93 L (4.30-5.90) m/uL Hgb 9.0 L D (13.0-17.5) gm/dL Hct 27.1 L (39.0-53.0) % Plt Count 140 L (150-450) k/uL Neutrophils # 10.2 H (1.3-7.7) k/uL Lymphocytes # 0.8 L (1.0-4.8) k/uL ABG pH (7.35-7.45) ABG pCO2 (35-45) mmHg ABG pO2 130 H (83-108) mmHg ABG HCO3 (21-25) mmol/L ABG Total CO2 25 H (19-24) mmol/L ABG O2 Saturation 99.4 H (94-97) % ABG Hematocrit (34.0-46.0) % ABG Potassium (3.4-4.5) mmol/L ABG Ionized Calcium (4.5-5.3) mg/dL ABG Glucose (75-99) mg/dL Hemoglobin (13.0-17.5) gm/dL Chloride (98-107) mmol/L Glucose (74-99) mg/dL POC Glucose (mg/dL) 133 H (75-99) mg/dL Calcium (8.4-10.2) mg/dL Magnesium (1.6-2.3) mg/dL Alkaline Phosphatase (38-126) U/L Total Protein (6.3-8.2) g/dL Albumin (3.5-5.0) g/dL Arterial Blood Potassium (3.4-4.5) mmol/L Arterial Blood Glucose (75-99) mg/dL Crossmatch 02/24/20 02/24/20 02/24/20 Range/Units 20:14 22:04 23:07 WBC (3.8-10.6) k/uL RBC (4.30-5.90) m/uL Hgb (13.0-17.5) gm/dL Hct (39.0-53.0) % Plt Count (150-450) k/uL Neutrophils # (1.3-7.7) k/uL Lymphocytes # (1.0-4.8) k/uL ABG pH (7.35-7.45) ABG pCO2 (35-45) mmHg ABG pO2 (83-108) mmHg ABG HCO3 (21-25) mmol/L ABG Total CO2 (19-24) mmol/L ABG O2 Saturation (94-97) % ABG Hematocrit (34.0-46.0) % ABG Potassium (3.4-4.5) mmol/L ABG Ionized Calcium (4.5-5.3) mg/dL ABG Glucose (75-99) mg/dL Hemoglobin (13.0-17.5) gm/dL Chloride (98-107) mmol/L Glucose (74-99) mg/dL POC Glucose (mg/dL) 100 H 111 H 131 H (75-99) mg/dL Calcium (8.4-10.2) mg/dL Magnesium (1.6-2.3) mg/dL Alkaline Phosphatase (38-126) U/L Total Protein (6.3-8.2) g/dL Albumin (3.5-5.0) g/dL Arterial Blood Potassium (3.4-4.5) mmol/L Arterial Blood Glucose (75-99) mg/dL Crossmatch 10/02/25/20 02/25/20 Range/Units 00:04 01:04 01:55 WBC (3.8-10.6) k/uL RBC (4.30-5.90) m/uL Hgb (13.0-17.5) gm/dL Hct (39.0-53.0) % Plt Count (150-450) k/uL Neutrophils # (1.3-7.7) k/uL Lymphocytes # (1.0-4.8) k/uL ABG pH (7.35-7.45) ABG pCO2 (35-45) mmHg ABG pO2 (83-108) mmHg ABG HCO3 (21-25) mmol/L ABG Total CO2 (19-24) mmol/L ABG O2 Saturation (94-97) % ABG Hematocrit (34.0-46.0) % ABG Potassium (3.4-4.5) mmol/L ABG Ionized Calcium (4.5-5.3) mg/dL ABG Glucose (75-99) mg/dL Hemoglobin (13.0-17.5) gm/dL Chloride (98-107) mmol/L Glucose (74-99) mg/dL POC Glucose (mg/dL) 142 H 143 H 139 H (75-99) mg/dL Calcium (8.4-10.2) mg/dL Magnesium (1.6-2.3) mg/dL Alkaline Phosphatase (38-126) U/L Total Protein (6.3-8.2) g/dL Albumin (3.5-5.0) g/dL Arterial Blood Potassium (3.4-4.5) mmol/L Arterial Blood Glucose (75-99) mg/dL Crossmatch 02/25/20 02/25/20 02/25/20 Range/Units 02:59 03:59 04:00 WBC (3.8-10.6) k/uL RBC 2.69 L (4.30-5.90) m/uL Hgb 7.9 L (13.0-17.5) gm/dL Hct 24.8 L (39.0-53.0) % Plt Count 115 L (150-450) k/uL Neutrophils # (1.3-7.7) k/uL Lymphocytes # (1.0-4.8) k/uL ABG pH (7.35-7.45) ABG pCO2 (35-45) mmHg ABG pO2 (83-108) mmHg ABG HCO3 (21-25) mmol/L ABG Total CO2 (19-24) mmol/L ABG O2 Saturation (94-97) % ABG Hematocrit (34.0-46.0) % ABG Potassium (3.4-4.5) mmol/L ABG Ionized Calcium (4.5-5.3) mg/dL ABG Glucose (75-99) mg/dL Hemoglobin (13.0-17.5) gm/dL Chloride (98-107) mmol/L Glucose (74-99) mg/dL POC Glucose (mg/dL) 131 H 126 H (75-99) mg/dL Calcium (8.4-10.2) mg/dL Magnesium (1.6-2.3) mg/dL Alkaline Phosphatase (38-126) U/L Total Protein (6.3-8.2) g/dL Albumin (3.5-5.0) g/dL Arterial Blood Potassium (3.4-4.5) mmol/L Arterial Blood Glucose (75-99) mg/dL Crossmatch 02/25/20 02/25/20 02/25/20 Range/Units 04:00 04:59 05:48 WBC (3.8-10.6) k/uL RBC (4.30-5.90) m/uL Hgb (13.0-17.5) gm/dL Hct (39.0-53.0) % Plt Count (150-450) k/uL Neutrophils # (1.3-7.7) k/uL Lymphocytes # (1.0-4.8) k/uL ABG pH (7.35-7.45) ABG pCO2 (35-45) mmHg ABG pO2 (83-108) mmHg ABG HCO3 (21-25) mmol/L ABG Total CO2 (19-24) mmol/L ABG O2 Saturation 98.5 H (94-97) % ABG Hematocrit (34.0-46.0) % ABG Potassium (3.4-4.5) mmol/L ABG Ionized Calcium (4.5-5.3) mg/dL ABG Glucose (75-99) mg/dL Hemoglobin (13.0-17.5) gm/dL Chloride 110 H (98-107) mmol/L Glucose 112 H (74-99) mg/dL POC Glucose (mg/dL) 120 H (75-99) mg/dL Calcium 7.7 L (8.4-10.2) mg/dL Magnesium (1.6-2.3) mg/dL Alkaline Phosphatase 23 L (38-126) U/L Total Protein 4.5 L (6.3-8.2) g/dL Albumin 2.9 L (3.5-5.0) g/dL Arterial Blood Potassium (3.4-4.5) mmol/L Arterial Blood Glucose (75-99) mg/dL Crossmatch 02/25/20 02/25/20 02/25/20 Range/Units 05:50 06:56 08:12 WBC (3.8-10.6) k/uL RBC (4.30-5.90) m/uL Hgb (13.0-17.5) gm/dL Hct (39.0-53.0) % Plt Count (150-450) k/uL Neutrophils # (1.3-7.7) k/uL Lymphocytes # (1.0-4.8) k/uL ABG pH (7.35-7.45) ABG pCO2 (35-45) mmHg ABG pO2 (83-108) mmHg ABG HCO3 (21-25) mmol/L ABG Total CO2 (19-24) mmol/L ABG O2 Saturation (94-97) % ABG Hematocrit (34.0-46.0) % ABG Potassium (3.4-4.5) mmol/L ABG Ionized Calcium (4.5-5.3) mg/dL ABG Glucose (75-99) mg/dL Hemoglobin (13.0-17.5) gm/dL Chloride (98-107) mmol/L Glucose (74-99) mg/dL POC Glucose (mg/dL) 123 H 126 H 114 H (75-99) mg/dL Calcium (8.4-10.2) mg/dL Magnesium (1.6-2.3) mg/dL Alkaline Phosphatase (38-126) U/L Total Protein (6.3-8.2) g/dL Albumin (3.5-5.0) g/dL Arterial Blood Potassium (3.4-4.5) mmol/L Arterial Blood Glucose (75-99) mg/dL Crossmatch 02/25/20 02/25/20 02/25/20 Range/Units 09:11 09:11 10:09 WBC (3.8-10.6) k/uL RBC (4.30-5.90) m/uL Hgb (13.0-17.5) gm/dL Hct (39.0-53.0) % Plt Count (150-450) k/uL Neutrophils # (1.3-7.7) k/uL Lymphocytes # (1.0-4.8) k/uL ABG pH (7.35-7.45) ABG pCO2 33 L (35-45) mmHg ABG pO2 142 H (83-108) mmHg ABG HCO3 (21-25) mmol/L ABG Total CO2 (19-24) mmol/L ABG O2 Saturation 99.6 H (94-97) % ABG Hematocrit (34.0-46.0) % ABG Potassium (3.4-4.5) mmol/L ABG Ionized Calcium (4.5-5.3) mg/dL ABG Glucose (75-99) mg/dL Hemoglobin (13.0-17.5) gm/dL Chloride (98-107) mmol/L Glucose (74-99) mg/dL POC Glucose (mg/dL) 157 H 170 H (75-99) mg/dL Calcium (8.4-10.2) mg/dL Magnesium (1.6-2.3) mg/dL Alkaline Phosphatase (38-126) U/L Total Protein (6.3-8.2) g/dL Albumin (3.5-5.0) g/dL Arterial Blood Potassium (3.4-4.5) mmol/L Arterial Blood Glucose (75-99) mg/dL Crossmatch 02/25/20 02/25/20 02/25/20 Range/Units 11:09 12:12 13:06 WBC (3.8-10.6) k/uL RBC (4.30-5.90) m/uL Hgb (13.0-17.5) gm/dL Hct (39.0-53.0) % Plt Count (150-450) k/uL Neutrophils # (1.3-7.7) k/uL Lymphocytes # (1.0-4.8) k/uL ABG pH (7.35-7.45) ABG pCO2 (35-45) mmHg ABG pO2 (83-108) mmHg ABG HCO3 (21-25) mmol/L ABG Total CO2 (19-24) mmol/L ABG O2 Saturation (94-97) % ABG Hematocrit (34.0-46.0) % ABG Potassium (3.4-4.5) mmol/L ABG Ionized Calcium (4.5-5.3) mg/dL ABG Glucose (75-99) mg/dL Hemoglobin (13.0-17.5) gm/dL Chloride (98-107) mmol/L Glucose (74-99) mg/dL POC Glucose (mg/dL) 171 H 148 H 144 H (75-99) mg/dL Calcium (8.4-10.2) mg/dL Magnesium (1.6-2.3) mg/dL Alkaline Phosphatase (38-126) U/L Total Protein (6.3-8.2) g/dL Albumin (3.5-5.0) g/dL Arterial Blood Potassium (3.4-4.5) mmol/L Arterial Blood Glucose (75-99) mg/dL Crossmatch Assessment and Plan Assessment: Impression: Status post CABG, postoperative day #1. Quadruple bypass surgery. As noted earlier. History of type 2 diabetes. History of previous [place]. Dyslipidemia. Benign essential hypertension. Family history of premature coronary artery disease. former smoker, quit in 1983. History of unstable angina. History of GI bleeding and anemia secondary to GI blood loss. Recommendation: Continue aspirin statins Plavix and beta blockers. Patient was placed on pressure support of 8 and CPAP, and if tolerated will proceed to extubation. Continue hemodynamic support. GI and DVT prophylaxis. Incentive spirometry post extubation. Close monitoring of his sugars. Bronchodilators in the form of DuoNeb. Discontinue unnecessary catheters. We'll continue to follow. Time with Patient: Less than 30
[2020-02-25] MEDS: METOPROLOL TARTRATE 12.5 MG TAB PO SCH ×2 (14:18→20:50)
[2020-02-25 14:25] LABS: Glucose,Whole Blood 144 mg/dL (75-99)
[2020-02-25 14:56] VITALS: BMI 31.6
[2020-02-25 15:15] LABS: Glucose,Whole Blood 131 mg/dL (75-99)
[2020-02-25 16:04] LABS: Glucose,Whole Blood 122 mg/dL (75-99)
--- NOTE | 2020-02-25 16:59 | P.PN ---
Subjective Progress Note Date: 02/25/20 (delayed charting seen at 0945) Principal diagnosis: CAD Patient is a 69-year-old male with a history of coronary artery disease previous myocardial infarction with stenting, HTN, HLD, and prior GI bleed who presented for CABG X4. He underwent procedure on 02/23. He was admitted to the ICU intubated and sedated. He was having elevated blood pressures after admission. He remained intubated over night on 02/23. Patient seen and examined at bedside. He remains on the vent. Shakes head no to pain. General: Ill-appearing, mild distress, appears at stated age Derm: warm, dry Head: atraumatic, normocephalic, symmetric Eyes: EOMI, no lid lag, anicteric sclera Mouth: no lip lesion, mucus membranes dry, ET tube in place Cardiovascular: S1S2 reg, no murmur, positive posterior tibial pulse bilateral, CT in place Lungs: course bs bilatertal, no rhonchi, no rales , no accessory muscle use On vent Abdominal: soft, nontender to palpation, no guarding, no appreciable organomegaly Ext: no gross muscle atrophy, trace pedal edema, no contractures Neuro: Breathing spontaneously on CPAP, Nods yes no appropriately. Moving all 4 extremities independently. Psych: Awake, Following commands. CAD s/p 4 vessel bypass being managed by CT surgery DM2 - on insulin gtt for 24 more hours - follow accuchecks - hold metformin - Preop HgB A1C 6.4 Acute blood loss anemia and thrombocytopenia - anticipated and expected out come of surgery - follow CBC - no indication for transfusion at this time Pyrexia - undetermined etiology. - ? MH - no signs of infection at this time - follow fever trends Chronic systolic CHF with EF 40% - BB - resume losartan when appropriate per CT surgery HLD - statin, zetia GERD - PPI Obesity BMI 30 - outpatient structured weight loss HTN - currently controlled - metoprolol Hx of GI bleed. Thank you for allowing us to participate in the care of this pleasant patient. Do not hesitate to contact us with questions. Someone can be reached from the [facility] hospitalist group all hours of the day at [phone] or via perfect serve. Objective - Vital Signs Vital signs: Vital Signs Temp 98.6 F 02/25/20 16:00 Pulse 76 02/25/20 16:00 Resp 15 02/25/20 16:00 BP 122/49 02/25/20 16:00 Pulse Ox 92 L 02/25/20 16:00 Intake & Output 02/24/20 02/25/20 02/25/20 18:59 06:59 18:59 Intake Total 922.085 7898.794 864.406 Output Total 2860 1653 506 Balance -2039.187 1223.794 358.406 Weight 100.2 kg 100.2 kg Intake: IV 760.2 2312.742 758.10 Albumin Human 5% 250 ml 500 1250 250 In Empty Bag 1 bag @ 250 mls/hr IVPB Q1HR PRN Rx#: [id number] Cardiac Output 0.9 50 290 60 Milrinone-D5w Pmx 20 mg 17.2 5.742 13.10 In Dextrose/Water 1 100ml .bag @ 0.3 MCG/KG/MIN 8. 613 mls/hr IV .[id number] RAPHAEL Rx#:[id number] Pressure Bags 9 117 75 Sodium Chloride 0.9% 1, 150 650 310 000 ml @ 20 mls/hr IV . Q24H RAPHAEL Rx#:[id number] ceFAZolin 2,000 mg In 50 Sodium Chloride 0.9% 30 ml @ Per Protocol IVPB ONCE ONE Rx#:[id number] Intake, IV Titration 60.613 564.052 106.306 Amount Clevidipine Butyrate 25 24.900 18.3 mg In Empty Bag 1 bag @ 1 MG/HR 2 mls/hr IV .Q24H RAPHAEL Rx#:[id number] Dexmedetomidine/0.9% NaCl 3.35 96.65 21.167 (Pmx) 400 mcg In Empty Bag 1 bag @ Titrate IV . Q0M RAPHAEL Rx#:[id number] Insulin Regular 100 unit 5.901 17.280 32.589 In Sodium Chloride 0.9% 100 ml @ Per Protocol IV .Q0M RAPHAEL Rx#:[id number] Milrinone-D5w Pmx 20 mg 22.537 48.616 45.937 In Dextrose/Water 1 100ml .bag @ 0.3 MCG/KG/MIN 8. 613 mls/hr IV .[id number] RAPHAEL Rx#:[id number] Nitroglycerin-D5w Pmx 50 3.925 mg In Dextrose/Water 1 250ml.bag @ 5 MCG/MIN 1.5 mls/hr IV .Q24H RAPHAEL Rx#: [id number] ceFAZolin 2 gm In Sodium 100 Chloride 0.9% 50 ml @ 100 mls/hr IVPB Q8HR RAPHAEL Rx# :[id number] propofoL 1,000 mg In 283.206 6.613 Empty Bag 1 bag @ Titrate IV .Q0M RAPHAEL Rx#: [id number] Output: Chest Tube Drainage 690 980 230 Bilateral Mediastinal 400 470 80 Left Anterior Chest 290 510 150 Drainage 200 10 Right Calf 200 10 Urine 670 473 266 Estimated Blood Loss 1500 Other: Voiding Method Indwelling Catheter Indwelling Catheter ABP, PAP, CO, CI - Last Documented Arterial Blood Pressure 135/35 Pulmonary Artery Pressure 19/6 Cardiac Output 7.9 Cardiac Index 3.7 - Labs CBC & Chem 7: 02/25/20 04:00 02/25/20 04:00 Labs: Abnormal Lab Results - Last 24 Hours (Table) 02/19/20 02/24/20 02/24/20 Range/Units 13:43 16:49 17:15 WBC (3.8-10.6) k/uL RBC (4.30-5.90) m/uL Hgb (13.0-17.5) gm/dL Hct (39.0-53.0) % Plt Count (150-450) k/uL Neutrophils # (1.3-7.7) k/uL Lymphocytes # (1.0-4.8) k/uL ABG pH 7.21 L (7.35-7.45) ABG pCO2 52 H (35-45) mmHg ABG pO2 150 H (83-108) mmHg ABG Total CO2 (19-24) mmol/L ABG O2 Saturation 99.2 H (94-97) % Chloride (98-107) mmol/L Glucose (74-99) mg/dL POC Glucose (mg/dL) 180 H (75-99) mg/dL Calcium (8.4-10.2) mg/dL Alkaline Phosphatase (38-126) U/L Total Protein (6.3-8.2) g/dL Albumin (3.5-5.0) g/dL Crossmatch See Detail 02/24/20 02/24/20 02/24/20 Range/Units 17:21 17:55 17:57 WBC 13.7 H (3.8-10.6) k/uL RBC 3.63 L (4.30-5.90) m/uL Hgb 11.5 L (13.0-17.5) gm/dL Hct 33.1 L (39.0-53.0) % Plt Count (150-450) k/uL Neutrophils # (1.3-7.7) k/uL Lymphocytes # (1.0-4.8) k/uL ABG pH (7.35-7.45) ABG pCO2 (35-45) mmHg ABG pO2 130 H (83-108) mmHg ABG Total CO2 25 H (19-24) mmol/L ABG O2 Saturation 99.4 H (94-97) % Chloride (98-107) mmol/L Glucose (74-99) mg/dL POC Glucose (mg/dL) 177 H (75-99) mg/dL Calcium (8.4-10.2) mg/dL Alkaline Phosphatase (38-126) U/L Total Protein (6.3-8.2) g/dL Albumin (3.5-5.0) g/dL Crossmatch 02/24/20 02/24/20 02/24/20 Range/Units 18:41 20:05 20:14 WBC 11.7 H (3.8-10.6) k/uL RBC 2.93 L (4.30-5.90) m/uL Hgb 9.0 L D (13.0-17.5) gm/dL Hct 27.1 L (39.0-53.0) % Plt Count 140 L (150-450) k/uL Neutrophils # 10.2 H (1.3-7.7) k/uL Lymphocytes # 0.8 L (1.0-4.8) k/uL ABG pH (7.35-7.45) ABG pCO2 (35-45) mmHg ABG pO2 (83-108) mmHg ABG Total CO2 (19-24) mmol/L ABG O2 Saturation (94-97) % Chloride (98-107) mmol/L Glucose (74-99) mg/dL POC Glucose (mg/dL) 133 H 100 H (75-99) mg/dL Calcium (8.4-10.2) mg/dL Alkaline Phosphatase (38-126) U/L Total Protein (6.3-8.2) g/dL Albumin (3.5-5.0) g/dL Crossmatch 02/24/20 02/24/20 02/25/20 Range/Units 22:04 23:07 00:04 WBC (3.8-10.6) k/uL RBC (4.30-5.90) m/uL Hgb (13.0-17.5) gm/dL Hct (39.0-53.0) % Plt Count (150-450) k/uL Neutrophils # (1.3-7.7) k/uL Lymphocytes # (1.0-4.8) k/uL ABG pH (7.35-7.45) ABG pCO2 (35-45) mmHg ABG pO2 (83-108) mmHg ABG Total CO2 (19-24) mmol/L ABG O2 Saturation (94-97) % Chloride (98-107) mmol/L Glucose (74-99) mg/dL POC Glucose (mg/dL) 111 H 131 H 142 H (75-99) mg/dL Calcium (8.4-10.2) mg/dL Alkaline Phosphatase (38-126) U/L Total Protein (6.3-8.2) g/dL Albumin (3.5-5.0) g/dL Crossmatch 02/25/20 02/25/20 02/25/20 Range/Units 01:04 01:55 02:59 WBC (3.8-10.6) k/uL RBC (4.30-5.90) m/uL Hgb (13.0-17.5) gm/dL Hct (39.0-53.0) % Plt Count (150-450) k/uL Neutrophils # (1.3-7.7) k/uL Lymphocytes # (1.0-4.8) k/uL ABG pH (7.35-7.45) ABG pCO2 (35-45) mmHg ABG pO2 (83-108) mmHg ABG Total CO2 (19-24) mmol/L ABG O2 Saturation (94-97) % Chloride (98-107) mmol/L Glucose (74-99) mg/dL POC Glucose (mg/dL) 143 H 139 H 131 H (75-99) mg/dL Calcium (8.4-10.2) mg/dL Alkaline Phosphatase (38-126) U/L Total Protein (6.3-8.2) g/dL Albumin (3.5-5.0) g/dL Crossmatch 02/25/20 02/25/20 02/25/20 Range/Units 03:59 04:00 04:00 WBC (3.8-10.6) k/uL RBC 2.69 L (4.30-5.90) m/uL Hgb 7.9 L (13.0-17.5) gm/dL Hct 24.8 L (39.0-53.0) % Plt Count 115 L (150-450) k/uL Neutrophils # (1.3-7.7) k/uL Lymphocytes # (1.0-4.8) k/uL ABG pH (7.35-7.45) ABG pCO2 (35-45) mmHg ABG pO2 (83-108) mmHg ABG Total CO2 (19-24) mmol/L ABG O2 Saturation (94-97) % Chloride 110 H (98-107) mmol/L Glucose 112 H (74-99) mg/dL POC Glucose (mg/dL) 126 H (75-99) mg/dL Calcium 7.7 L (8.4-10.2) mg/dL Alkaline Phosphatase 23 L (38-126) U/L Total Protein 4.5 L (6.3-8.2) g/dL Albumin 2.9 L (3.5-5.0) g/dL Crossmatch 02/25/20 02/25/20 02/25/20 Range/Units 04:59 05:48 05:50 WBC (3.8-10.6) k/uL RBC (4.30-5.90) m/uL Hgb (13.0-17.5) gm/dL Hct (39.0-53.0) % Plt Count (150-450) k/uL Neutrophils # (1.3-7.7) k/uL Lymphocytes # (1.0-4.8) k/uL ABG pH (7.35-7.45) ABG pCO2 (35-45) mmHg ABG pO2 (83-108) mmHg ABG Total CO2 (19-24) mmol/L ABG O2 Saturation 98.5 H (94-97) % Chloride (98-107) mmol/L Glucose (74-99) mg/dL POC Glucose (mg/dL) 120 H 123 H (75-99) mg/dL Calcium (8.4-10.2) mg/dL Alkaline Phosphatase (38-126) U/L Total Protein (6.3-8.2) g/dL Albumin (3.5-5.0) g/dL Crossmatch 02/25/20 02/25/20 02/25/20 Range/Units 06:56 08:12 09:11 WBC (3.8-10.6) k/uL RBC (4.30-5.90) m/uL Hgb (13.0-17.5) gm/dL Hct (39.0-53.0) % Plt Count (150-450) k/uL Neutrophils # (1.3-7.7) k/uL Lymphocytes # (1.0-4.8) k/uL ABG pH (7.35-7.45) ABG pCO2 33 L (35-45) mmHg ABG pO2 142 H (83-108) mmHg ABG Total CO2 (19-24) mmol/L ABG O2 Saturation 99.6 H (94-97) % Chloride (98-107) mmol/L Glucose (74-99) mg/dL POC Glucose (mg/dL) 126 H 114 H (75-99) mg/dL Calcium (8.4-10.2) mg/dL Alkaline Phosphatase (38-126) U/L Total Protein (6.3-8.2) g/dL Albumin (3.5-5.0) g/dL Crossmatch 02/25/20 02/25/20 02/25/20 Range/Units 09:11 10:09 11:09 WBC (3.8-10.6) k/uL RBC (4.30-5.90) m/uL Hgb (13.0-17.5) gm/dL Hct (39.0-53.0) % Plt Count (150-450) k/uL Neutrophils # (1.3-7.7) k/uL Lymphocytes # (1.0-4.8) k/uL ABG pH (7.35-7.45) ABG pCO2 (35-45) mmHg ABG pO2 (83-108) mmHg ABG Total CO2 (19-24) mmol/L ABG O2 Saturation (94-97) % Chloride (98-107) mmol/L Glucose (74-99) mg/dL POC Glucose (mg/dL) 157 H 170 H 171 H (75-99) mg/dL Calcium (8.4-10.2) mg/dL Alkaline Phosphatase (38-126) U/L Total Protein (6.3-8.2) g/dL Albumin (3.5-5.0) g/dL Crossmatch 02/25/20 02/25/20 02/25/20 Range/Units 12:12 13:06 14:23 WBC (3.8-10.6) k/uL RBC (4.30-5.90) m/uL Hgb (13.0-17.5) gm/dL Hct (39.0-53.0) % Plt Count (150-450) k/uL Neutrophils # (1.3-7.7) k/uL Lymphocytes # (1.0-4.8) k/uL ABG pH (7.35-7.45) ABG pCO2 (35-45) mmHg ABG pO2 (83-108) mmHg ABG Total CO2 (19-24) mmol/L ABG O2 Saturation (94-97) % Chloride (98-107) mmol/L Glucose (74-99) mg/dL POC Glucose (mg/dL) 148 H 144 H 144 H (75-99) mg/dL Calcium (8.4-10.2) mg/dL Alkaline Phosphatase (38-126) U/L Total Protein (6.3-8.2) g/dL Albumin (3.5-5.0) g/dL Crossmatch 02/25/20 02/25/20 Range/Units 15:14 16:02 WBC (3.8-10.6) k/uL RBC (4.30-5.90) m/uL Hgb (13.0-17.5) gm/dL Hct (39.0-53.0) % Plt Count (150-450) k/uL Neutrophils # (1.3-7.7) k/uL Lymphocytes # (1.0-4.8) k/uL ABG pH (7.35-7.45) ABG pCO2 (35-45) mmHg ABG pO2 (83-108) mmHg ABG Total CO2 (19-24) mmol/L ABG O2 Saturation (94-97) % Chloride (98-107) mmol/L Glucose (74-99) mg/dL POC Glucose (mg/dL) 131 H 122 H (75-99) mg/dL Calcium (8.4-10.2) mg/dL Alkaline Phosphatase (38-126) U/L Total Protein (6.3-8.2) g/dL Albumin (3.5-5.0) g/dL Crossmatch
[2020-02-25 17:01] LABS: Glucose,Whole Blood 123 mg/dL (75-99)
[2020-02-25] MEDS: CLEVIDIPINE BUTYRATE 25 MG in EMPTY BAG 1 BAG IV SCH (17:13)
[2020-02-25 18:16] LABS: Glucose,Whole Blood 182 mg/dL (75-99)
[2020-02-25 19:16] LABS: Glucose,Whole Blood 163 mg/dL (75-99)
[2020-02-25 20:05] LABS: Glucose,Whole Blood 246 mg/dL (75-99)
[2020-02-25] MEDS: EZETIMIBE 10 MG TAB PO SCH (20:49)
[2020-02-25] MEDS: SENNOSIDES-DOCUSATE SODIUM 1 EACH TAB PO SCH (20:50)
[2020-02-25] MEDS ORDERED: amLODIPine 2.5 MG TAB PO SCH (21:00)
[2020-02-25 21:04] LABS: Glucose,Whole Blood 106 mg/dL (75-99)
[2020-02-25 22:02] LABS: Glucose,Whole Blood 107 mg/dL (75-99)
[2020-02-25 23:29] LABS: Glucose,Whole Blood 133 mg/dL (75-99)
[2020-02-26] MEDS: HEPARIN SODIUM,PORCINE 5,000 UNIT/ML 1 ML VIAL SQ SCH ×4 (00:01→23:31)
[2020-02-26 00:30] LABS: Glucose,Whole Blood 207 mg/dL (75-99)
[2020-02-26] MEDS: INSULIN REGULAR 100 UNIT in SODIUM CHLORIDE 0.9% 100 ML IV SCH (00:35)
[2020-02-26 01:09] LABS: Glucose,Whole Blood 138 mg/dL (75-99)
[2020-02-26 02:01] LABS: Glucose,Whole Blood 139 mg/dL (75-99)
[2020-02-26 03:08] LABS: Glucose,Whole Blood 127 mg/dL (75-99)
[2020-02-26 04:01] LABS: Glucose,Whole Blood 125 mg/dL (75-99)
[2020-02-26] MEDS: HYDROcodone/APAP 5-325MG 1 EACH TAB PO PRN ×2 (04:11)
[2020-02-26 04:53] LABS: Basophils % (A) 0 %; Eosinophils % (A) 0 %; HCT 21.2 % (39.0-53.0); Lymphocytes # (A) 1.6 k/uL (1.0-4.8); Lymphocytes % (A) 14 %; MCH 30.3 pg (25.0-35.0); MCHC 33.1 g/dL (31.0-37.0); MCV 91.8 fL (80.0-100.0); Mean Platelet Volume 10.1; Monocytes # (A) 0.6 k/uL (0-1.0); Monocytes % (A) 5 %; Neutrophils # (A) 9.7 k/uL (1.3-7.7); Neutrophils % (A) 81 %; Platelet Count 113 k/uL (150-450); RBC 2.31 m/uL (4.30-5.90); RDW 13.9 % (11.5-15.5); WBC 12.1 k/uL (3.8-10.6)
[2020-02-26 05:01] LABS: Glucose,Whole Blood 136 mg/dL (75-99)
[2020-02-26 05:17] LABS: Ionized Calcium 4.8 mg/dL (4.5-5.3)
[2020-02-26 05:24] LABS: Albumin 3.3 g/dL (3.5-5.0); Calcium 8.2 mg/dL (8.4-10.2); Potassium 3.8 mmol/L (3.5-5.1); Total Protein 5.1 g/dL (6.3-8.2)
[2020-02-26 06:03] LABS: Glucose,Whole Blood 127 mg/dL (75-99)
[2020-02-26] MEDS: KETOROLAC 15 MG/ML 1 ML VIAL IVP SCH ×4 (06:04→23:30)
[2020-02-26] MEDS ORDERED: METOPROLOL TARTRATE 25 MG TAB PO STA ×2 (06:43→16:16)
[2020-02-26] MEDS ORDERED: POTASSIUM CHLORIDE ER 20 MEQ TAB.ER PO SCH (07:00)
[2020-02-26] MEDS: IPRATROPIUM-ALBUTEROL 3 ML NEB INHALATION SCH ×4 (07:17→20:08)
[2020-02-26 07:18] LABS: Glucose,Whole Blood 157 mg/dL (75-99)
--- NOTE | 2020-02-26 07:49 | P.PN ---
<Megan Mendez - Last Filed: 02/26/20 08:55> Subjective Progress Note Date: 02/26/20 Principal diagnosis: Triple-vessel coronary artery disease with thinned out distal anteroapical and inferior wall, mild to moderate mitral valve regurgitation. Previous medical history of coronary artery disease status post prior stenting to the right coronary artery with inferior wall myocardial infarction, chronic systolic heart failure/ischemic cardiomyopathy with EF 40%, diabetes mellitus with hemoglobin A1c 6.4%, hypertension, previous tobacco dependence with preoperative FEV1 86% of predicted and mild restrictive disease, obstructive sleep apnea without home CPAP use, daily marijuana use, previous GI bleed with severe anemia, strong family history of coronary artery disease with premature coronary artery disease, brother from myocardial infarction in his 40s. POD #2 quadruple coronary artery bypass grafting using the left internal mammary artery to the left anterior descending artery after endarterectomy, left radial artery from the aorta to the second obtuse marginal artery, reverse saphenous vein graft from the aorta to the diagonal artery, reverse saphenous vein graft from the aorta to the posterior descending artery. Endoscopic harvesting of the left radial artery. Endoscopic harvesting of the right greater saphenous veinfrom a level. Intraoperative transesophageal echocardiogram and epi-aortic scanning. Intraoperative graft flow measurements using the [employer] system. Postoperative acute blood loss anemia and thrombocytopenia, expected given hemodilution and cardiopulmonary bypass pump as well as patient's previous history of anemia The patient is currently sitting up in a recliner in the intensive care unit in no acute distress. He was successfully extubated yesterday at 9:20 AM. Does complain of postsurgical chest pain and pain in his chest tube sites, denies shortness of breath. Blood pressure and heart rate are on the higher side as patient was just removed from the bed to the chair and has increased pain. Remains in sinus rhythm, otherwise hemodynamically stable on no inotropes or pressors. He has remained afebrile. Right internal jugular Cordis, right radial art line, mediastinal and left pleural chest tubes remain present. No new concerns. Objective - Vital Signs Vital signs: Vital Signs Temp 97 F L 02/26/20 04:00 Pulse 98 02/26/20 07:19 Resp 24 02/26/20 07:00 BP 132/72 02/26/20 06:00 Pulse Ox 94 L 02/26/20 07:00 Intake & Output 02/25/20 02/26/20 02/26/20 18:59 06:59 18:59 Intake Total 1324.006 987.326 26 Output Total 601 783 80 Balance 723.006 204.326 -54 Weight 100.2 kg 100 kg Intake: IV 810.10 312 26 Albumin Human 5% 250 ml 250 In Empty Bag 1 bag @ 250 mls/hr IVPB Q1HR PRN Rx#: [id number] Cardiac Output 0.9 60 Milrinone-D5w Pmx 20 mg 13.10 In Dextrose/Water 1 100ml .bag @ 0.3 MCG/KG/MIN 8. 613 mls/hr IV .[id number] [facility] Rx#:[id number] Pressure Bags 87 72 6 Sodium Chloride 0.9% 1, 350 240 20 000 ml @ 20 mls/hr IV . Q24H [facility] Rx#:[id number] ceFAZolin 2,000 mg In 50 Sodium Chloride 0.9% 30 ml @ Per Protocol IVPB ONCE ONE Rx#:[id number] Intake, IV Titration 113.906 25.326 Amount Dexmedetomidine/0.9% NaCl 21.167 (Pmx) 400 mcg In Empty Bag 1 bag @ Titrate IV . Q0M [facility] Rx#:[id number] Insulin Regular 100 unit 40.189 25.326 In Sodium Chloride 0.9% 100 ml @ Per Protocol IV .Q0M [facility] Rx#:[id number] Milrinone-D5w Pmx 20 mg 45.937 In Dextrose/Water 1 100ml .bag @ 0.3 MCG/KG/MIN 8. 613 mls/hr IV .[id number] [facility] Rx#:[id number] propofoL 1,000 mg In 6.613 Empty Bag 1 bag @ Titrate IV .Q0M [facility] Rx#: [id number] Oral 400 650 Output: Chest Tube Drainage 240 230 40 Bilateral Mediastinal 80 90 10 Left Anterior Chest 160 140 30 Drainage 10 Right Calf 10 Urine 351 553 40 Other: Voiding Method Indwelling Catheter Indwelling Catheter ABP, PAP, CO, CI - Last Documented Arterial Blood Pressure 189/50 Pulmonary Artery Pressure 19/6 Cardiac Output 7.9 Cardiac Index 3.7 - Constitutional General appearance: Present: cooperative, no acute distress - Respiratory Details: Lung sounds diminished bilaterally. Respirations even, nonlabored. Currently on room air with an oxygen saturation 92%. Able to achieve 1000 mL on his incentive spirometry. Mediastinal chest tube and left pleural chest tube present to continuous wall suction, no air leaks present. Mediastinal chest tube with 50 mL serosanguineous drainage overnight, 170 mL in the last 24 hours. Left pleural chest tube with 50 mL serosanguineous drainage overnight, 350 mL in the last 24 hours. - Cardiovascular Details: S1, S2 present. Regular rate and rhythm, sinus rhythm on telemetry. Sternum stable. Atrial epicardial pacemaker wires present, grounded. Palpable periph eral pulses bilaterally. Trace bilateral lower extremity edema present. No calf pain or tenderness noted. Right internal jugular Cordis, right radial arterial line present. Heart hugger, antiembolism stockings, SCDs present. - Gastrointestinal Gastrointestinal Comment(s): Abdomen soft, nontender, nondistended. Hypoactive bowel sounds present 4 quadrants. Tolerating clear liquid diet. Positive belching, negative flatus - Genitourinary Genitourinary Comment(s): Dwyer present draining clear, yellow urine. Output 45-60 mL/h overnight - Integumentary Integumentary Comment(s): Skin is warm and dry with evidence of good perfusion. Anterior chest incision well approximated and covered with dry intact dressing. Left radial artery harvest site well approximated. Skin to left hand is warm, patient is able to wiggle his fingers, good cap refill. Right lower semi-EVH site well approximated, RL drain present with minimal serosanguineous drainage overnight. - Neurologic Neurologic: Present: CNII-XII intact - Musculoskeletal Musculoskeletal: Present: gait normal, strength equal bilaterally - Psychiatric Psychiatric: Present: A&O x's 3, appropriate affect, intact judgment & insight - Allied health notes Allied health notes reviewed: nursing - Labs CBC & Chem 7: 02/26/20 04:44 02/26/20 04:44 Labs: Abnormal Lab Results - Last 24 Hours (Table) 02/25/20 02/25/20 02/25/20 Range/Units 08:12 09:11 09:11 WBC (3.8-10.6) k/uL RBC (4.30-5.90) m/uL Hgb (13.0-17.5) gm/dL Hct (39.0-53.0) % Plt Count (150-450) k/uL Neutrophils # (1.3-7.7) k/uL ABG pCO2 33 L (35-45) mmHg ABG pO2 142 H (83-108) mmHg ABG O2 Saturation 99.6 H (94-97) % Sodium (137-145) mmol/L Glucose (74-99) mg/dL POC Glucose (mg/dL) 114 H 157 H (75-99) mg/dL Calcium (8.4-10.2) mg/dL Alkaline Phosphatase (38-126) U/L Total Protein (6.3-8.2) g/dL Albumin (3.5-5.0) g/dL 02/25/20 02/25/20 02/25/20 Range/Units 10:09 11:09 12:12 WBC (3.8-10.6) k/uL RBC (4.30-5.90) m/uL Hgb (13.0-17.5) gm/dL Hct (39.0-53.0) % Plt Count (150-450) k/uL Neutrophils # (1.3-7.7) k/uL ABG pCO2 (35-45) mmHg ABG pO2 (83-108) mmHg ABG O2 Saturation (94-97) % Sodium (137-145) mmol/L Glucose (74-99) mg/dL POC Glucose (mg/dL) 170 H 171 H 148 H (75-99) mg/dL Calcium (8.4-10.2) mg/dL Alkaline Phosphatase (38-126) U/L Total Protein (6.3-8.2) g/dL Albumin (3.5-5.0) g/dL 02/25/20 02/25/20 02/25/20 Range/Units 13:06 14:23 15:14 WBC (3.8-10.6) k/uL RBC (4.30-5.90) m/uL Hgb (13.0-17.5) gm/dL Hct (39.0-53.0) % Plt Count (150-450) k/uL Neutrophils # (1.3-7.7) k/uL ABG pCO2 (35-45) mmHg ABG pO2 (83-108) mmHg ABG O2 Saturation (94-97) % Sodium (137-145) mmol/L Glucose (74-99) mg/dL POC Glucose (mg/dL) 144 H 144 H 131 H (75-99) mg/dL Calcium (8.4-10.2) mg/dL Alkaline Phosphatase (38-126) U/L Total Protein (6.3-8.2) g/dL Albumin (3.5-5.0) g/dL 02/25/20 02/25/20 02/25/20 Range/Units 16:02 16:59 18:15 WBC (3.8-10.6) k/uL RBC (4.30-5.90) m/uL Hgb (13.0-17.5) gm/dL Hct (39.0-53.0) % Plt Count (150-450) k/uL Neutrophils # (1.3-7.7) k/uL ABG pCO2 (35-45) mmHg ABG pO2 (83-108) mmHg ABG O2 Saturation (94-97) % Sodium (137-145) mmol/L Glucose (74-99) mg/dL POC Glucose (mg/dL) 122 H 123 H 182 H (75-99) mg/dL Calcium (8.4-10.2) mg/dL Alkaline Phosphatase (38-126) U/L Total Protein (6.3-8.2) g/dL Albumin (3.5-5.0) g/dL 02/25/20 02/25/20 02/25/20 Range/Units 19:14 20:03 21:03 WBC (3.8-10.6) k/uL RBC (4.30-5.90) m/uL Hgb (13.0-17.5) gm/dL Hct (39.0-53.0) % Plt Count (150-450) k/uL Neutrophils # (1.3-7.7) k/uL ABG pCO2 (35-45) mmHg ABG pO2 (83-108) mmHg ABG O2 Saturation (94-97) % Sodium (137-145) mmol/L Glucose (74-99) mg/dL POC Glucose (mg/dL) 163 H 246 H 106 H (75-99) mg/dL Calcium (8.4-10.2) mg/dL Alkaline Phosphatase (38-126) U/L Total Protein (6.3-8.2) g/dL Albumin (3.5-5.0) g/dL 02/25/20 02/25/20 02/26/20 Range/Units 22:01 23:28 00:29 WBC (3.8-10.6) k/uL RBC (4.30-5.90) m/uL Hgb (13.0-17.5) gm/dL Hct (39.0-53.0) % Plt Count (150-450) k/uL Neutrophils # (1.3-7.7) k/uL ABG pCO2 (35-45) mmHg ABG pO2 (83-108) mmHg ABG O2 Saturation (94-97) % Sodium (137-145) mmol/L Glucose (74-99) mg/dL POC Glucose (mg/dL) 107 H 133 H 207 H (75-99) mg/dL Calcium (8.4-10.2) mg/dL Alkaline Phosphatase (38-126) U/L Total Protein (6.3-8.2) g/dL Albumin (3.5-5.0) g/dL 02/26/20 02/26/20 02/26/20 Range/Units 01:07 02:00 03:07 WBC (3.8-10.6) k/uL RBC (4.30-5.90) m/uL Hgb (13.0-17.5) gm/dL Hct (39.0-53.0) % Plt Count (150-450) k/uL Neutrophils # (1.3-7.7) k/uL ABG pCO2 (35-45) mmHg ABG pO2 (83-108) mmHg ABG O2 Saturation (94-97) % Sodium (137-145) mmol/L Glucose (74-99) mg/dL POC Glucose (mg/dL) 138 H 139 H 127 H (75-99) mg/dL Calcium (8.4-10.2) mg/dL Alkaline Phosphatase (38-126) U/L Total Protein (6.3-8.2) g/dL Albumin (3.5-5.0) g/dL 02/26/20 02/26/20 02/26/20 Range/Units 03:59 04:44 04:44 WBC 12.1 H (3.8-10.6) k/uL RBC 2.31 L (4.30-5.90) m/uL Hgb 7.0 L (13.0-17.5) gm/dL Hct 21.2 L (39.0-53.0) % Plt Count 113 L (150-450) k/uL Neutrophils # 9.7 H (1.3-7.7) k/uL ABG pCO2 (35-45) mmHg ABG pO2 (83-108) mmHg ABG O2 Saturation (94-97) % Sodium 136 L (137-145) mmol/L Glucose 111 H (74-99) mg/dL POC Glucose (mg/dL) 125 H (75-99) mg/dL Calcium 8.2 L (8.4-10.2) mg/dL Alkaline Phosphatase 31 L (38-126) U/L Total Protein 5.1 L (6.3-8.2) g/dL Albumin 3.3 L (3.5-5.0) g/dL 02/26/20 02/26/20 02/26/20 Range/Units 04:59 06:02 07:17 WBC (3.8-10.6) k/uL RBC (4.30-5.90) m/uL Hgb (13.0-17.5) gm/dL Hct (39.0-53.0) % Plt Count (150-450) k/uL Neutrophils # (1.3-7.7) k/uL ABG pCO2 (35-45) mmHg ABG pO2 (83-108) mmHg ABG O2 Saturation (94-97) % Sodium (137-145) mmol/L Glucose (74-99) mg/dL POC Glucose (mg/dL) 136 H 127 H 157 H (75-99) mg/dL Calcium (8.4-10.2) mg/dL Alkaline Phosphatase (38-126) U/L Total Protein (6.3-8.2) g/dL Albumin (3.5-5.0) g/dL - Imaging and Cardiology Chest x-ray: image reviewed Assessment and Plan Assessment: 1. Triple-vessel coronary artery disease with thinned out distal anteroapical and inferior wall, unstable angina, status post four-vessel CABG 2. Mild to moderate mitral valve regurgitation 3. History of coronary artery disease status post prior stenting to the right coronary artery with inferior wall myocardial infarction 4. Chronic systolic heart failure/ischemic cardiomyopathy with EF 40% 5. Diabetes mellitus with hemoglobin A1c 6.4% 6. Hypertension 7. Previous tobacco dependence with preoperative FEV1 86% of predicted and mild restrictive disease 8. Obstructive sleep apnea without home CPAP use 9. Daily marijuana use 10. Previous GI bleed with severe anemia 11. Strong family history of coronary artery disease with premature coronary artery disease, brother from myocardial infarction in his 40s. 12. Postoperative acute blood loss anemia and thrombocytopenia, expected Plan: 1. Continue aspirin, statin, Plavix, beta jigna therapy. Will increase beta jigna therapy as tolerated. 2. Oral calcium channel jigna added yesterday for radial artery spasm prophylaxis. Do not discontinue CCB without discussing with cardiac surgery 3. Encourage incentive spirometry 10 times every hour while awake. Bronchodilators per pulmonology. 4. Increase activity, ambulate as tolerated. PT/OT/cardiac rehab consulted 5. Will monitor daily labs and x-rays. Electrolyte replacement per protocol. No transfusion at this time. We will give IV Lasix 40 mg 1 today 6. GI/DVT prophylaxis 7. Will reintroduce home medications as tolerated 8. Insulin management per primary care service. Hemoglobin A1c 6.4% 9. Pain control current medication regimen 10. Will discontinue mediastinal and left pleural chest tubes 11. Discontinue Dwyer. May bladder scan and straight cathed for greater than 300 mL residual 12. Discontinue arterial line, Cordis 13. Accurate intake and output. Daily weights. 14. Will place transversely 3 self cardiac stepdown unit. May transfer when bed available 15. More recommendations to follow based on patient's progress Seen and examined and agree with above Time with Patient: Greater than 30 <Sreekanth Puga - Last Filed: 02/26/20 11:04> Objective - Vital Signs Vital signs: Vital Signs Temp 97.6 F 02/26/20 08:00 Pulse 99 02/26/20 11:00 Resp 17 02/26/20 10:00 BP 152/72 02/26/20 10:00 Pulse Ox 97 02/26/20 10:00 Intake & Output 02/25/20 02/26/20 02/26/20 18:59 06:59 18:59 Intake Total 1324.006 987.326 188.611 Output Total 601 783 685 Balance 723.006 204.326 -496.389 Weight 100.2 kg 100 kg Intake: IV 810.10 312 98 Albumin Human 5% 250 ml 250 In Empty Bag 1 bag @ 250 mls/hr IVPB Q1HR PRN Rx#: [id number] Cardiac Output 0.9 60 Milrinone-D5w Pmx 20 mg 13.10 In Dextrose/Water 1 100ml .bag @ 0.3 MCG/KG/MIN 8. 613 mls/hr IV .[id number] [facility] Rx#:[id number] Pressure Bags 87 72 18 Sodium Chloride 0.9% 1, 350 240 80 000 ml @ 20 mls/hr IV . Q24H [facility] Rx#:[id number] ceFAZolin 2,000 mg In 50 Sodium Chloride 0.9% 30 ml @ Per Protocol IVPB ONCE ONE Rx#:[id number] Intake, IV Titration 113.906 25.326 40.611 Amount Dexmedetomidine/0.9% NaCl 21.167 (Pmx) 400 mcg In Empty Bag 1 bag @ Titrate IV . Q0M [facility] Rx#:[id number] Insulin Regular 100 unit 40.189 25.326 40.611 In Sodium Chloride 0.9% 100 ml @ Per Protocol IV .Q0M [facility] Rx#:[id number] Milrinone-D5w Pmx 20 mg 45.937 In Dextrose/Water 1 100ml .bag @ 0.3 MCG/KG/MIN 8. 613 mls/hr IV .[id number] [facility] Rx#:[id number] propofoL 1,000 mg In 6.613 Empty Bag 1 bag @ Titrate IV .Q0M [facility] Rx#: [id number] Oral 400 650 50 Output: Chest Tube Drainage 240 230 80 Bilateral Mediastinal 80 90 30 Left Anterior Chest 160 140 50 Drainage 10 Right Calf 10 Urine 351 553 605 Other: Voiding Method Indwelling Catheter Indwelling Catheter Indwelling Catheter ABP, PAP, CO, CI - Last Documented Arterial Blood Pressure 158/62 Pulmonary Artery Pressure 19/6 Cardiac Output 7.9 Cardiac Index 3.7 - Labs CBC & Chem 7: 02/26/20 04:44 02/26/20 04:44 Labs: Abnormal Lab Results - Last 24 Hours (Table) 02/25/20 02/25/20 02/25/20 Range/Units 11:09 12:12 13:06 WBC (3.8-10.6) k/uL RBC (4.30-5.90) m/uL Hgb (13.0-17.5) gm/dL Hct (39.0-53.0) % Plt Count (150-450) k/uL Neutrophils # (1.3-7.7) k/uL Sodium (137-145) mmol/L Glucose (74-99) mg/dL POC Glucose (mg/dL) 171 H 148 H 144 H (75-99) mg/dL Calcium (8.4-10.2) mg/dL Alkaline Phosphatase (38-126) U/L Total Protein (6.3-8.2) g/dL Albumin (3.5-5.0) g/dL 02/25/20 02/25/20 02/25/20 Range/Units 14:23 15:14 16:02 WBC (3.8-10.6) k/uL RBC (4.30-5.90) m/uL Hgb (13.0-17.5) gm/dL Hct (39.0-53.0) % Plt Count (150-450) k/uL Neutrophils # (1.3-7.7) k/uL Sodium (137-145) mmol/L Glucose (74-99) mg/dL POC Glucose (mg/dL) 144 H 131 H 122 H (75-99) mg/dL Calcium (8.4-10.2) mg/dL Alkaline Phosphatase (38-126) U/L Total Protein (6.3-8.2) g/dL Albumin (3.5-5.0) g/dL 02/25/20 02/25/20 02/25/20 Range/Units 16:59 18:15 19:14 WBC (3.8-10.6) k/uL RBC (4.30-5.90) m/uL Hgb (13.0-17.5) gm/dL Hct (39.0-53.0) % Plt Count (150-450) k/uL Neutrophils # (1.3-7.7) k/uL Sodium (137-145) mmol/L Glucose (74-99) mg/dL POC Glucose (mg/dL) 123 H 182 H 163 H (75-99) mg/dL Calcium (8.4-10.2) mg/dL Alkaline Phosphatase (38-126) U/L Total Protein (6.3-8.2) g/dL Albumin (3.5-5.0) g/dL 02/25/20 02/25/20 02/25/20 Range/Units 20:03 21:03 22:01 WBC (3.8-10.6) k/uL RBC (4.30-5.90) m/uL Hgb (13.0-17.5) gm/dL Hct (39.0-53.0) % Plt Count (150-450) k/uL Neutrophils # (1.3-7.7) k/uL Sodium (137-145) mmol/L Glucose (74-99) mg/dL POC Glucose (mg/dL) 246 H 106 H 107 H (75-99) mg/dL Calcium (8.4-10.2) mg/dL Alkaline Phosphatase (38-126) U/L Total Protein (6.3-8.2) g/dL Albumin (3.5-5.0) g/dL 02/25/20 02/26/20 02/26/20 Range/Units 23:28 00:29 01:07 WBC (3.8-10.6) k/uL RBC (4.30-5.90) m/uL Hgb (13.0-17.5) gm/dL Hct (39.0-53.0) % Plt Count (150-450) k/uL Neutrophils # (1.3-7.7) k/uL Sodium (137-145) mmol/L Glucose (74-99) mg/dL POC Glucose (mg/dL) 133 H 207 H 138 H (75-99) mg/dL Calcium (8.4-10.2) mg/dL Alkaline Phosphatase (38-126) U/L Total Protein (6.3-8.2) g/dL Albumin (3.5-5.0) g/dL 02/26/20 02/26/20 02/26/20 Range/Units 02:00 03:07 03:59 WBC (3.8-10.6) k/uL RBC (4.30-5.90) m/uL Hgb (13.0-17.5) gm/dL Hct (39.0-53.0) % Plt Count (150-450) k/uL Neutrophils # (1.3-7.7) k/uL Sodium (137-145) mmol/L Glucose (74-99) mg/dL POC Glucose (mg/dL) 139 H 127 H 125 H (75-99) mg/dL Calcium (8.4-10.2) mg/dL Alkaline Phosphatase (38-126) U/L Total Protein (6.3-8.2) g/dL Albumin (3.5-5.0) g/dL 02/26/20 02/26/20 02/26/20 Range/Units 04:44 04:44 04:59 WBC 12.1 H (3.8-10.6) k/uL RBC 2.31 L (4.30-5.90) m/uL Hgb 7.0 L (13.0-17.5) gm/dL Hct 21.2 L (39.0-53.0) % Plt Count 113 L (150-450) k/uL Neutrophils # 9.7 H (1.3-7.7) k/uL Sodium 136 L (137-145) mmol/L Glucose 111 H (74-99) mg/dL POC Glucose (mg/dL) 136 H (75-99) mg/dL Calcium 8.2 L (8.4-10.2) mg/dL Alkaline Phosphatase 31 L (38-126) U/L Total Protein 5.1 L (6.3-8.2) g/dL Albumin 3.3 L (3.5-5.0) g/dL 02/26/20 02/26/20 02/26/20 Range/Units 06:02 07:17 08:00 WBC (3.8-10.6) k/uL RBC (4.30-5.90) m/uL Hgb (13.0-17.5) gm/dL Hct (39.0-53.0) % Plt Count (150-450) k/uL Neutrophils # (1.3-7.7) k/uL Sodium (137-145) mmol/L Glucose (74-99) mg/dL POC Glucose (mg/dL) 127 H 157 H 189 H (75-99) mg/dL Calcium (8.4-10.2) mg/dL Alkaline Phosphatase (38-126) U/L Total Protein (6.3-8.2) g/dL Albumin (3.5-5.0) g/dL 02/26/20 Range/Units 10:45 WBC (3.8-10.6) k/uL RBC (4.30-5.90) m/uL Hgb (13.0-17.5) gm/dL Hct (39.0-53.0) % Plt Count (150-450) k/uL Neutrophils # (1.3-7.7) k/uL Sodium (137-145) mmol/L Glucose (74-99) mg/dL POC Glucose (mg/dL) 117 H (75-99) mg/dL Calcium (8.4-10.2) mg/dL Alkaline Phosphatase (38-126) U/L Total Protein (6.3-8.2) g/dL Albumin (3.5-5.0) g/dL Assessment and Plan Plan: The patient was seen and examined, I agree with the plan documented by Nurse Practitioner Megan Mendez
[2020-02-26 08:02] LABS: Glucose,Whole Blood 189 mg/dL (75-99)
[2020-02-26] MEDS ORDERED: FUROSEMIDE 10 MG/ML 4 ML VIAL IV STA (08:51)
[2020-02-26] MEDS: SODIUM CHLORIDE 0.9% 1,000 ML IV SCH ×3 (08:59→11:07)
[2020-02-26] MEDS: FERROUS SULFATE 325 MG TAB PO SCH ×2 (09:04→16:58)
[2020-02-26] MEDS: ASCORBIC ACID 500 MG TAB PO SCH ×2 (09:04→16:58)
[2020-02-26] MEDS: PANTOPRAZOLE 40 MG TABLET PO SCH ×2 (09:04→16:58)
[2020-02-26] MEDS: ASPIRIN 325 MG TAB PO SCH (09:05)
[2020-02-26] MEDS: CLOPIDOGREL 75 MG TAB PO SCH (09:05)
[2020-02-26] MEDS: ATORVASTATIN 40 MG TAB PO SCH (09:05)
--- NOTE | 2020-02-26 09:30 | XR ---
EXAMINATION TYPE: XR chest 1V portable DATE OF EXAM: 02/26/2020 COMPARISON: 02/25/2020 HISTORY: Shortness of breath TECHNIQUE: Single frontal view of the chest is obtained. FINDINGS: Bilateral consolidation and small effusion. Postoperative changes. No pneumothorax. There is to be a chest tube noted on the left. [place]-Milady catheter, ET tube, and NG tube have been removed. No sizable pneumothorax. IMPRESSION: 1. Persistent bilateral consolidation and pleural effusion correlate for mild venous congestion. Basi lar consolidation may be 0n the basis of postoperative atelectasis. Infiltrate not excluded.
--- NOTE | 2020-02-26 09:56 | P.PN ---
Subjective HISTORY OF PRESENTING ILLNESS This is a pleasant 69-year-old male past medical history significant for coronary artery disease, diabetes mellitus, hypertension, chronic systolic heart failure and dyslipidemia. He follows in the office with Dr. Hensley. We have been asked to see in consultation for bypass grafting. He underwent quadru ple bypass yesterday with Dr. Sanz. He had a MONTELONGO to LAD, left radial artery to OM, SVG to diagonal branch and SVG to PDA. He is seen and examined sitting up in the chair in no acute distress. He is complaining of discomfort in his chest around his sternal incision that is worsened with breathing. He states he feels was difficult to take a deep breath secondary to discomfort. He denies exertional chest pain or shortness of breath. He is using his incentive spirometer frequently he states. Blood pressure per the arterial line is 158/62 although the waveform does not appear accurate, heart rate 87 afebrile and maintaining oxygen saturation on room air. Laboratory data reviewed, WBC 12.1, hemoglobin 7, platelets 113, sodium 136, potassium 3.8, creatinine 1.06. Currently maintained on amlodipine 5 mg daily, atorvastatin 40 mg daily, aspirin 325 mg daily, Plavix 75 mg daily, Zetia 10 mg daily, losartan 25 mg daily and metoprolol 25 mg twice a day. CT surgery plans for discontinuation of chest tubes today. He is maintaining a negative fluid balance this morning. PHYSICAL EXAMINATION CONSTITUTIONAL: No apparent distress. HEENT: Head is normocephalic. Pupils are equal, round. Sclerae anicteric. Mucous membranes of the mouth are moist. No JVD. No carotid bruit. Right IJ swan in place. CHEST EXAMINATION: Lungs are clear to auscultation. No chest wall tenderness is noted on palpation or with deep breathing. Diminished. Mediastinal chest tube in place and left pelural chest tube in place. HEART EXAMINATION: Regular rate and rhythm. S1, S2 heard. Systolic ejection murmur at the left sternal border, no gallops or rub. Heart hugger in place. Sternal dressing intact. EXTREMITIES: 2+ peripheral pulses, no lower extremity edema and no calf tenderness. Right radial arterial line in place. ASSESSMENT Coronary artery disease status post four-vessel bypass grafting Anemia Thrombocytopenia Chronic systolic heart failure Ischemic cardiomyopathy Valvular heart disease Hypertension Diabetes mellitus Dyslipidemia PLAN Continue current medical regimen. Recommend regular incentive spirometer use. We will continue to follow and make recommendations accordingly. Nurse Practitioner note has been reviewed, I agree with a documented findings and plan of care. Patient was seen and examined. Objective - Vital Signs Vital signs: Vital Signs Temp 97.6 F 02/26/20 08:00 Pulse 87 02/26/20 09:00 Resp 18 02/26/20 09:00 BP 153/70 02/26/20 09:00 Pulse Ox 97 02/26/20 09:00 Intake & Output 02/25/20 02/26/20 02/26/20 18:59 06:59 18:59 Intake Total 1324.006 987.326 155.043 Output Total 601 783 215 Balance 723.006 204.326 -59.957 Weight 100.2 kg 100 kg Intake: IV 810.10 312 78 Albumin Human 5% 250 ml 250 In Empty Bag 1 bag @ 250 mls/hr IVPB Q1HR PRN Rx#: [id number] Cardiac Output 0.9 60 Milrinone-D5w Pmx 20 mg 13.10 In Dextrose/Water 1 100ml .bag @ 0.3 MCG/KG/MIN 8. 613 mls/hr IV .[id number] RAPHAEL Rx#:[id number] Pressure Bags 87 72 18 Sodium Chloride 0.9% 1, 350 240 60 000 ml @ 20 mls/hr IV . Q24H RAPHAEL Rx#:[id number] ceFAZolin 2,000 mg In 50 Sodium Chloride 0.9% 30 ml @ Per Protocol IVPB ONCE ONE Rx#:[id number] Intake, IV Titration 113.906 25.326 27.043 Amount Dexmedetomidine/0.9% NaCl 21.167 (Pmx) 400 mcg In Empty Bag 1 bag @ Titrate IV . Q0M RAPHAEL Rx#:[id number] Insulin Regular 100 unit 40.189 25.326 27.043 In Sodium Chloride 0.9% 100 ml @ Per Protocol IV .Q0M RAPHAEL Rx#:[id number] Milrinone-D5w Pmx 20 mg 45.937 In Dextrose/Water 1 100ml .bag @ 0.3 MCG/KG/MIN 8. 613 mls/hr IV .[id number] RAPHAEL Rx#:[id number] propofoL 1,000 mg In 6.613 Empty Bag 1 bag @ Titrate IV .Q0M RAPHAEL Rx#: [id number] Oral 400 650 50 Output: Chest Tube Drainage 240 230 80 Bilateral Mediastinal 80 90 30 Left Anterior Chest 160 140 50 Drainage 10 Right Calf 10 Urine 351 553 135 Other: Voiding Method Indwelling Catheter Indwelling Catheter ABP, PAP, CO, CI - Last Documented Arterial Blood Pressure 158/62 Pulmonary Artery Pressure 19/6 Cardiac Output 7.9 Cardiac Index 3.7 - Labs CBC & Chem 7: 02/26/20 04:44 02/26/20 04:44 Labs: Abnormal Lab Results - Last 24 Hours (Table) 02/25/20 02/25/20 02/25/20 Range/Units 10:09 11:09 12:12 WBC (3.8-10.6) k/uL RBC (4.30-5.90) m/uL Hgb (13.0-17.5) gm/dL Hct (39.0-53.0) % Plt Count (150-450) k/uL Neutrophils # (1.3-7.7) k/uL Sodium (137-145) mmol/L Glucose (74-99) mg/dL POC Glucose (mg/dL) 170 H 171 H 148 H (75-99) mg/dL Calcium (8.4-10.2) mg/dL Alkaline Phosphatase (38-126) U/L Total Protein (6.3-8.2) g/dL Albumin (3.5-5.0) g/dL 02/25/20 02/25/20 02/25/20 Range/Units 13:06 14:23 15:14 WBC (3.8-10.6) k/uL RBC (4.30-5.90) m/uL Hgb (13.0-17.5) gm/dL Hct (39.0-53.0) % Plt Count (150-450) k/uL Neutrophils # (1.3-7.7) k/uL Sodium (137-145) mmol/L Glucose (74-99) mg/dL POC Glucose (mg/dL) 144 H 144 H 131 H (75-99) mg/dL Calcium (8.4-10.2) mg/dL Alkaline Phosphatase (38-126) U/L Total Protein (6.3-8.2) g/dL Albumin (3.5-5.0) g/dL 02/25/20 02/25/20 02/25/20 Range/Units 16:02 16:59 18:15 WBC (3.8-10.6) k/uL RBC (4.30-5.90) m/uL Hgb (13.0-17.5) gm/dL Hct (39.0-53.0) % Plt Count (150-450) k/uL Neutrophils # (1.3-7.7) k/uL Sodium (137-145) mmol/L Glucose (74-99) mg/dL POC Glucose (mg/dL) 122 H 123 H 182 H (75-99) mg/dL Calcium (8.4-10.2) mg/dL Alkaline Phosphatase (38-126) U/L Total Protein (6.3-8.2) g/dL Albumin (3.5-5.0) g/dL 02/25/20 02/25/20 02/25/20 Range/Units 19:14 20:03 21:03 WBC (3.8-10.6) k/uL RBC (4.30-5.90) m/uL Hgb (13.0-17.5) gm/dL Hct (39.0-53.0) % Plt Count (150-450) k/uL Neutrophils # (1.3-7.7) k/uL Sodium (137-145) mmol/L Glucose (74-99) mg/dL POC Glucose (mg/dL) 163 H 246 H 106 H (75-99) mg/dL Calcium (8.4-10.2) mg/dL Alkaline Phosphatase (38-126) U/L Total Protein (6.3-8.2) g/dL Albumin (3.5-5.0) g/dL 02/25/20 02/25/20 02/26/20 Range/Units 22:01 23:28 00:29 WBC (3.8-10.6) k/uL RBC (4.30-5.90) m/uL Hgb (13.0-17.5) gm/dL Hct (39.0-53.0) % Plt Count (150-450) k/uL Neutrophils # (1.3-7.7) k/uL Sodium (137-145) mmol/L Glucose (74-99) mg/dL POC Glucose (mg/dL) 107 H 133 H 207 H (75-99) mg/dL Calcium (8.4-10.2) mg/dL Alkaline Phosphatase (38-126) U/L Total Protein (6.3-8.2) g/dL Albumin (3.5-5.0) g/dL 02/26/20 02/26/20 02/26/20 Range/Units 01:07 02:00 03:07 WBC (3.8-10.6) k/uL RBC (4.30-5.90) m/uL Hgb (13.0-17.5) gm/dL Hct (39.0-53.0) % Plt Count (150-450) k/uL Neutrophils # (1.3-7.7) k/uL Sodium (137-145) mmol/L Glucose (74-99) mg/dL POC Glucose (mg/dL) 138 H 139 H 127 H (75-99) mg/dL Calcium (8.4-10.2) mg/dL Alkaline Phosphatase (38-126) U/L Total Protein (6.3-8.2) g/dL Albumin (3.5-5.0) g/dL 02/26/20 02/26/20 02/26/20 Range/Units 03:59 04:44 04:44 WBC 12.1 H (3.8-10.6) k/uL RBC 2.31 L (4.30-5.90) m/uL Hgb 7.0 L (13.0-17.5) gm/dL Hct 21.2 L (39.0-53.0) % Plt Count 113 L (150-450) k/uL Neutrophils # 9.7 H (1.3-7.7) k/uL Sodium 136 L (137-145) mmol/L Glucose 111 H (74-99) mg/dL POC Glucose (mg/dL) 125 H (75-99) mg/dL Calcium 8.2 L (8.4-10.2) mg/dL Alkaline Phosphatase 31 L (38-126) U/L Total Protein 5.1 L (6.3-8.2) g/dL Albumin 3.3 L (3.5-5.0) g/dL 02/26/20 02/26/20 02/26/20 Range/Units 04:59 06:02 07:17 WBC (3.8-10.6) k/uL RBC (4.30-5.90) m/uL Hgb (13.0-17.5) gm/dL Hct (39.0-53.0) % Plt Count (150-450) k/uL Neutrophils # (1.3-7.7) k/uL Sodium (137-145) mmol/L Glucose (74-99) mg/dL POC Glucose (mg/dL) 136 H 127 H 157 H (75-99) mg/dL Calcium (8.4-10.2) mg/dL Alkaline Phosphatase (38-126) U/L Total Protein (6.3-8.2) g/dL Albumin (3.5-5.0) g/dL 02/26/20 Range/Units 08:00 WBC (3.8-10.6) k/uL RBC (4.30-5.90) m/uL Hgb (13.0-17.5) gm/dL Hct (39.0-53.0) % Plt Count (150-450) k/uL Neutrophils # (1.3-7.7) k/uL Sodium (137-145) mmol/L Glucose (74-99) mg/dL POC Glucose (mg/dL) 189 H (75-99) mg/dL Calcium (8.4-10.2) mg/dL Alkaline Phosphatase (38-126) U/L Total Protein (6.3-8.2) g/dL Albumin (3.5-5.0) g/dL
[2020-02-26 10:47] LABS: Glucose,Whole Blood 117 mg/dL (75-99)
[2020-02-26] MEDS: LOSARTAN 25 MG TAB PO SCH (10:48)
[2020-02-26] MEDS ORDERED: amLODIPine 5 MG TAB PO SCH (12:00)
--- NOTE | 2020-02-26 12:51 | P.PN ---
Subjective Progress Note Date: 02/26/20 Principal diagnosis: Status post CABG. Postoperative day #2 This is a 69-year-old white male with known history of coronary artery disease, previous AK in 2006, multiple prior stent placements, hypertension, dyslipidemia, history of GI bleeding with anemia, and strong family history of coronary artery disease premature, less than 60 years of age. Remote history of smoking quit smoking in 1983, occasional marijuana use, patient was seen recently by cardiology, and he underwent cardiac catheterization to evaluate symptoms of angina/unstable angina. His cardiac catheterization showed multivessel coronary artery disease, with 90% stenosis of LAD, 90% stenosis of circumflex, there was a, left main, obtuse marginal with 50%, and proximal RCA 70% in stent stenosis. Patient was advised aggressive risk factors modifications, and considering that the ostial LAD and circumflex disease noted to be heavily calcified, CABG was recommended. Today the patient underwent myocardial revascularization. Postoperatively, patient was on mechanical ventilation, and I was asked to see him on consultation. Preop spirometry showed that the patient had FEV1 of 86%, FEV1/FVC was normal. Postoperative chest x-ray showed no evidence of active disease, endotracheal tube, [place] c atheter, and other tubes were noted to be in proper position patient is sedated, patient is now on clevidipine for elevated blood pressure, his also on milrinone and on nitroglycerin. Chest x-ray was reviewed ventilator settings were also reviewed and he is now on assist control mode of mechanical ventilation rate of 12 tidal volume is 550, FiO2 on the percent and PEEP of 5 ABG showed a pO2 of 15 3 pCO2 of 55 pH of 7.22, hence will increase rate up to 18. Patient was reevaluated today on 02/25/20, patient is postoperative day #1, status post quadruple coronary artery bypass grafting using MONTELONGO to LAD, left radial artery from aorta to second obtuse margin artery reverse saphenous vein graft from the aorta to the diagonal artery and reverse saphenous vein graft from the aorta to the posterior descending artery. Patient remains on mechanical ventilation overnight, he was noted later after transferred to the ICU from the OR to have a synchrony with mechanical ventilation, he was at the [facility] on Precedex, and was poorly ventilating. Hence I had to give the patient 1 dose of Nimbex, discontinued the Precedex, placed the patient on propofol overnight. This morning he is back on propofol, he received only 1 dose of Nimbex last night, and he seems to be quite comfortable. Patient was given a short trial with a pressure support and CPAP, his weaning parameters were excellent, then I proceeded to extubating the patient uneventfully. Patient was reevaluated today on 02/26/20, he is now postoperative day #2. Patient was extubated yesterday uneventfully within a few hours after he arrived to the ICU. He is currently resting in a recliner in the ICU, he has minimal postsurgical chest pain, and in the chest tube sites, denies any shortness of breath, no cough, no wheezing. Remains hemodynamically stable, and in normal sinus rhythm, not requiring any inotropes or pressors. Mediastinal and left pleural chest tubes remain in place. Chest x-ray showed mostly atelectasis at the bases. Objective - Vital Signs Vital signs: Vital Signs Temp 97.6 F 02/26/20 08:00 Pulse 87 02/26/20 11:00 Resp 19 02/26/20 11:00 BP 152/72 02/26/20 11:00 Pulse Ox 96 02/26/20 11:00 Intake & Output 02/25/20 02/26/20 02/26/20 18:59 06:59 18:59 Intake Total 1324.006 987.326 208.611 Output Total 290 909 8942 Balance 723.006 204.326 -816.389 Weight 100.2 kg 100 kg Intake: IV 810.10 312 118 Albumin Human 5% 250 ml 250 In Empty Bag 1 bag @ 250 mls/hr IVPB Q1HR PRN Rx#: [id number] Cardiac Output 0.9 60 Milrinone-D5w Pmx 20 mg 13.10 In Dextrose/Water 1 100ml .bag @ 0.3 MCG/KG/MIN 8. 613 mls/hr IV .[id number] RAPHAEL Rx#:[id number] Pressure Bags 87 72 18 Sodium Chloride 0.9% 1, 350 240 100 000 ml @ 20 mls/hr IV . Q24H RAPHAEL Rx#:[id number] ceFAZolin 2,000 mg In 50 Sodium Chloride 0.9% 30 ml @ Per Protocol IVPB ONCE ONE Rx#:[id number] Intake, IV Titration 113.906 25.326 40.611 Amount Dexmedetomidine/0.9% NaCl 21.167 (Pmx) 400 mcg In Empty Bag 1 bag @ Titrate IV . Q0M RAPHAEL Rx#:[id number] Insulin Regular 100 unit 40.189 25.326 40.611 In Sodium Chloride 0.9% 100 ml @ Per Protocol IV .Q0M RAPHAEL Rx#:[id number] Milrinone-D5w Pmx 20 mg 45.937 In Dextrose/Water 1 100ml .bag @ 0.3 MCG/KG/MIN 8. 613 mls/hr IV .[id number] RAPHAEL Rx#:[id number] propofoL 1,000 mg In 6.613 Empty Bag 1 bag @ Titrate IV .Q0M RAPHAEL Rx#: [id number] Oral 400 650 50 Output: Chest Tube Drainage 240 230 80 Bilateral Mediastinal 80 90 30 Left Anterior Chest 160 140 50 Drainage 10 Right Calf 10 Urine 351 553 945 Other: Voiding Method Indwelling Catheter Indwelling Catheter Indwelling Catheter ABP, PAP, CO, CI - Last Documented Arterial Blood Pressure 158/62 Pulmonary Artery Pressure 19/6 Cardiac Output 7.9 Cardiac Index 3.7 - Exam Physical Exam: Revealed 69-year-old white male , in no distress. Pleasant. On room air. Head: Atraumatic, normocephalic. HEENT:[Neck is supple.] [No neck masses.] [No thyromegaly.] [No JVD.] Chest: Symmetrical chest expansion [no crackles or rhonchi or wheezes. Mediastinal and left pleural chest tube noted. Cardiac Exam: Normal S1 and S2, no S3 gallop, positive pericardial rub. No murmur.Sternum stable. . Abdomen: [Soft, nontender, no megaly, no rebound, no guarding, normal bowel sounds.] Extremities: [No clubbing, no edema, no cyanosis.] Neurological Exam: Alert and oriented 3, no gross focal neurologic deficits. Psychiatric: Normal mood, affect, Skin: No rashes - Labs CBC & Chem 7: 02/26/20 04:44 02/26/20 04:44 Labs: Abnormal Lab Results - Last 24 Hours (Table) 02/25/20 02/25/20 02/25/20 Range/Units 13:06 14:23 15:14 WBC (3.8-10.6) k/uL RBC (4.30-5.90) m/uL Hgb (13.0-17.5) gm/dL Hct (39.0-53.0) % Plt Count (150-450) k/uL Neutrophils # (1.3-7.7) k/uL Sodium (137-145) mmol/L Glucose (74-99) mg/dL POC Glucose (mg/dL) 144 H 144 H 131 H (75-99) mg/dL Calcium (8.4-10.2) mg/dL Alkaline Phosphatase (38-126) U/L Total Protein (6.3-8.2) g/dL Albumin (3.5-5.0) g/dL 02/25/20 02/25/20 02/25/20 Range/Units 16:02 16:59 18:15 WBC (3.8-10.6) k/uL RBC (4.30-5.90) m/uL Hgb (13.0-17.5) gm/dL Hct (39.0-53.0) % Plt Count (150-450) k/uL Neutrophils # (1.3-7.7) k/uL Sodium (137-145) mmol/L Glucose (74-99) mg/dL POC Glucose (mg/dL) 122 H 123 H 182 H (75-99) mg/dL Calcium (8.4-10.2) mg/dL Alkaline Phosphatase (38-126) U/L Total Protein (6.3-8.2) g/dL Albumin (3.5-5.0) g/dL 02/25/20 02/25/20 02/25/20 Range/Units 19:14 20:03 21:03 WBC (3.8-10.6) k/uL RBC (4.30-5.90) m/uL Hgb (13.0-17.5) gm/dL Hct (39.0-53.0) % Plt Count (150-450) k/uL Neutrophils # (1.3-7.7) k/uL Sodium (137-145) mmol/L Glucose (74-99) mg/dL POC Glucose (mg/dL) 163 H 246 H 106 H (75-99) mg/dL Calcium (8.4-10.2) mg/dL Alkaline Phosphatase (38-126) U/L Total Protein (6.3-8.2) g/dL Albumin (3.5-5.0) g/dL 02/25/20 02/25/20 02/26/20 Range/Units 22:01 23:28 00:29 WBC (3.8-10.6) k/uL RBC (4.30-5.90) m/uL Hgb (13.0-17.5) gm/dL Hct (39.0-53.0) % Plt Count (150-450) k/uL Neutrophils # (1.3-7.7) k/uL Sodium (137-145) mmol/L Glucose (74-99) mg/dL POC Glucose (mg/dL) 107 H 133 H 207 H (75-99) mg/dL Calcium (8.4-10.2) mg/dL Alkaline Phosphatase (38-126) U/L Total Protein (6.3-8.2) g/dL Albumin (3.5-5.0) g/dL 02/26/20 02/26/20 02/26/20 Range/Units 01:07 02:00 03:07 WBC (3.8-10.6) k/uL RBC (4.30-5.90) m/uL Hgb (13.0-17.5) gm/dL Hct (39.0-53.0) % Plt Count (150-450) k/uL Neutrophils # (1.3-7.7) k/uL Sodium (137-145) mmol/L Glucose (74-99) mg/dL POC Glucose (mg/dL) 138 H 139 H 127 H (75-99) mg/dL Calcium (8.4-10.2) mg/dL Alkaline Phosphatase (38-126) U/L Total Protein (6.3-8.2) g/dL Albumin (3.5-5.0) g/dL 02/26/20 02/26/20 02/26/20 Range/Units 03:59 04:44 04:44 WBC 12.1 H (3.8-10.6) k/uL RBC 2.31 L (4.30-5.90) m/uL Hgb 7.0 L (13.0-17.5) gm/dL Hct 21.2 L (39.0-53.0) % Plt Count 113 L (150-450) k/uL Neutrophils # 9.7 H (1.3-7.7) k/uL Sodium 136 L (137-145) mmol/L Glucose 111 H (74-99) mg/dL POC Glucose (mg/dL) 125 H (75-99) mg/dL Calcium 8.2 L (8.4-10.2) mg/dL Alkaline Phosphatase 31 L (38-126) U/L Total Protein 5.1 L (6.3-8.2) g/dL Albumin 3.3 L (3.5-5.0) g/dL 02/26/20 02/26/20 02/26/20 Range/Units 04:59 06:02 07:17 WBC (3.8-10.6) k/uL RBC (4.30-5.90) m/uL Hgb (13.0-17.5) gm/dL Hct (39.0-53.0) % Plt Count (150-450) k/uL Neutrophils # (1.3-7.7) k/uL Sodium (137-145) mmol/L Glucose (74-99) mg/dL POC Glucose (mg/dL) 136 H 127 H 157 H (75-99) mg/dL Calcium (8.4-10.2) mg/dL Alkaline Phosphatase (38-126) U/L Total Protein (6.3-8.2) g/dL Albumin (3.5-5.0) g/dL 02/26/20 02/26/20 Range/Units 08:00 10:45 WBC (3.8-10.6) k/uL RBC (4.30-5.90) m/uL Hgb (13.0-17.5) gm/dL Hct (39.0-53.0) % Plt Count (150-450) k/uL Neutrophils # (1.3-7.7) k/uL Sodium (137-145) mmol/L Glucose (74-99) mg/dL POC Glucose (mg/dL) 189 H 117 H (75-99) mg/dL Calcium (8.4-10.2) mg/dL Alkaline Phosphatase (38-126) U/L Total Protein (6.3-8.2) g/dL Albumin (3.5-5.0) g/dL Assessment and Plan Assessment: Impression: Status post CABG, postoperative day #2. History of type 2 diabetes. History of previous AK. Dyslipidemia. Benign essential hypertension. Family history of premature coronary artery disease. former smoker, quit in 1983. History of unstable angina. History of GI bleeding and anemia secondary to GI blood loss. Recommendation: Continue aspirin statins Plavix and beta blockers. Continue incentive spirometry, patient is achieving about 750 ML. Ambulate today. GI and DVT prophylaxis. Bronchodilators in the form of DuoNeb. We'll continue to follow. Time with Patient: Less than 30
[2020-02-26 13:08] LABS: Glucose,Whole Blood 126 mg/dL (75-99)
[2020-02-26 14:49] LABS: Glucose,Whole Blood 121 mg/dL (75-99)
[2020-02-26] MEDS ORDERED: METOPROLOL TARTRATE 25 MG TAB PO SCH ×2 (16:00→21:00)
[2020-02-26] MEDS ORDERED: ACETAMINOPHEN TAB 500 MG TAB PO PRN (16:16)
[2020-02-26 16:53] LABS: Glucose,Whole Blood 133 mg/dL (75-99)
[2020-02-26] MEDS: INSULIN ASPART (NovoLOG) 100 UNIT/ML VIAL SQ SCH ×2 (16:59→21:47)
--- NOTE | 2020-02-26 18:04 | P.PN ---
Subjective Progress Note Date: 02/26/20 Patient was seen and examined. No acute events overnight. Patient reports shortness of breath but relates that to chest pain at the site of his incision. He denies any palpitations. No nausea or vomiting. No fever or chills. Objective - Vital Signs Vital signs: Vital Signs Temp 97.5 F L 02/26/20 16:00 Pulse 108 H 02/26/20 17:00 Resp 16 02/26/20 17:00 BP 151/74 02/26/20 17:00 Pulse Ox 94 L 02/26/20 17:00 Intake & Output 02/25/20 02/26/20 02/26/20 18:59 06:59 18:59 Intake Total 1324.006 987.326 445.924 Output Total 737 486 5803 Balance 723.006 204.326 -1229.076 Weight 100.2 kg 100 kg Intake: IV 810.10 312 238 Albumin Human 5% 250 ml 250 In Empty Bag 1 bag @ 250 mls/hr IVPB Q1HR PRN Rx#: [id number] Cardiac Output 0.9 60 Milrinone-D5w Pmx 20 mg 13.10 In Dextrose/Water 1 100ml .bag @ 0.3 MCG/KG/MIN 8. 613 mls/hr IV .[id number] RAPHAEL Rx#:[id number] Pressure Bags 87 72 18 Sodium Chloride 0.9% 1, 350 240 220 000 ml @ 20 mls/hr IV . Q24H RAPHAEL Rx#:[id number] ceFAZolin 2,000 mg In 50 Sodium Chloride 0.9% 30 ml @ Per Protocol IVPB ONCE ONE Rx#:[id number] Intake, IV Titration 113.906 25.326 57.924 Amount Dexmedetomidine/0.9% NaCl 21.167 (Pmx) 400 mcg In Empty Bag 1 bag @ Titrate IV . Q0M RAPHEAL Rx#:[id number] Insulin Regular 100 unit 40.189 25.326 57.924 In Sodium Chloride 0.9% 100 ml @ Per Protocol IV .Q0M RAPHAEL Rx#:[id number] Milrinone-D5w Pmx 20 mg 45.937 In Dextrose/Water 1 100ml .bag @ 0.3 MCG/KG/MIN 8. 613 mls/hr IV .[id number] RAPHAEL Rx#:[id number] propofoL 1,000 mg In 6.613 Empty Bag 1 bag @ Titrate IV .Q0M RAPHAEL Rx#: [id number] Oral 400 650 150 Output: Chest Tube Drainage 240 230 80 Bilateral Mediastinal 80 90 30 Left Anterior Chest 160 140 50 Drainage 10 Right Calf 10 Urine 209 293 0501 Other: Voiding Method Indwelling Catheter Indwelling Catheter Indwelling Catheter # Voids 1 ABP, PAP, CO, CI - Last Documented Arterial Blood Pressure 158/62 Pulmonary Artery Pressure 19/6 Cardiac Output 7.9 Cardiac Index 3.7 - Exam General: [non toxic], [no distress], [appears at stated age] Derm: [warm], [dry] Head: [atraumatic], [normocephalic], [symmetric] Eyes: [EOMI], [no lid lag], [anicteric sclera] Mouth: [no lip lesion], [mucus membranes moist] Cardiovascular: [S1S2 reg], [no murmur], [positive DP pulse bilateral], [chest wall incision dressing clean dry and intact] Lungs: [Decreased breath sounds bilateral], [no rhonchi, no rales] , [no accessory muscle use] Abdominal: [soft], [ nontender to palpation], [no guarding], [no appreciable organomegaly] Ext: [no gross muscle atrophy], [no edema], [no contractures] Neuro: [no focal neuro deficits] Psych: [Alert], [oriented], [appropriate affect] - Labs CBC & Chem 7: 02/26/20 04:44 02/26/20 04:44 Labs: Abnormal Lab Results - Last 24 Hours (Table) 02/25/20 02/25/20 02/25/20 Range/Units 18:15 19:14 20:03 WBC (3.8-10.6) k/uL RBC (4.30-5.90) m/uL Hgb (13.0-17.5) gm/dL Hct (39.0-53.0) % Plt Count (150-450) k/uL Neutrophils # (1.3-7.7) k/uL Sodium (137-145) mmol/L Glucose (74-99) mg/dL POC Glucose (mg/dL) 182 H 163 H 246 H (75-99) mg/dL Calcium (8.4-10.2) mg/dL Alkaline Phosphatase (38-126) U/L Total Protein (6.3-8.2) g/dL Albumin (3.5-5.0) g/dL 02/25/20 02/25/20 02/25/20 Range/Units 21:03 22:01 23:28 WBC (3.8-10.6) k/uL RBC (4.30-5.90) m/uL Hgb (13.0-17.5) gm/dL Hct (39.0-53.0) % Plt Count (150-450) k/uL Neutrophils # (1.3-7.7) k/uL Sodium (137-145) mmol/L Glucose (74-99) mg/dL POC Glucose (mg/dL) 106 H 107 H 133 H (75-99) mg/dL Calcium (8.4-10.2) mg/dL Alkaline Phosphatase (38-126) U/L Total Protein (6.3-8.2) g/dL Albumin (3.5-5.0) g/dL 02/26/20 02/26/20 02/26/20 Range/Units 00:29 01:07 02:00 WBC (3.8-10.6) k/uL RBC (4.30-5.90) m/uL Hgb (13.0-17.5) gm/dL Hct (39.0-53.0) % Plt Count (150-450) k/uL Neutrophils # (1.3-7.7) k/uL Sodium (137-145) mmol/L Glucose (74-99) mg/dL POC Glucose (mg/dL) 207 H 138 H 139 H (75-99) mg/dL Calcium (8.4-10.2) mg/dL Alkaline Phosphatase (38-126) U/L Total Protein (6.3-8.2) g/dL Albumin (3.5-5.0) g/dL 02/26/20 02/26/20 02/26/20 Range/Units 03:07 03:59 04:44 WBC 12.1 H (3.8-10.6) k/uL RBC 2.31 L (4.30-5.90) m/uL Hgb 7.0 L (13.0-17.5) gm/dL Hct 21.2 L (39.0-53.0) % Plt Count 113 L (150-450) k/uL Neutrophils # 9.7 H (1.3-7.7) k/uL Sodium (137-145) mmol/L Glucose (74-99) mg/dL POC Glucose (mg/dL) 127 H 125 H (75-99) mg/dL Calcium (8.4-10.2) mg/dL Alkaline Phosphatase (38-126) U/L Total Protein (6.3-8.2) g/dL Albumin (3.5-5.0) g/dL 02/26/20 02/26/20 02/26/20 Range/Units 04:44 04:59 06:02 WBC (3.8-10.6) k/uL RBC (4.30-5.90) m/uL Hgb (13.0-17.5) gm/dL Hct (39.0-53.0) % Plt Count (150-450) k/uL Neutrophils # (1.3-7.7) k/uL Sodium 136 L (137-145) mmol/L Glucose 111 H (74-99) mg/dL POC Glucose (mg/dL) 136 H 127 H (75-99) mg/dL Calcium 8.2 L (8.4-10.2) mg/dL Alkaline Phosphatase 31 L (38-126) U/L Total Protein 5.1 L (6.3-8.2) g/dL Albumin 3.3 L (3.5-5.0) g/dL 02/26/20 02/26/20 02/26/20 Range/Units 07:17 08:00 10:45 WBC (3.8-10.6) k/uL RBC (4.30-5.90) m/uL Hgb (13.0-17.5) gm/dL Hct (39.0-53.0) % Plt Count (150-450) k/uL Neutrophils # (1.3-7.7) k/uL Sodium (137-145) mmol/L Glucose (74-99) mg/dL POC Glucose (mg/dL) 157 H 189 H 117 H (75-99) mg/dL Calcium (8.4-10.2) mg/dL Alkaline Phosphatase (38-126) U/L Total Protein (6.3-8.2) g/dL Albumin (3.5-5.0) g/dL 02/26/20 02/26/20 02/26/20 Range/Units 13:06 14:47 16:52 WBC (3.8-10.6) k/uL RBC (4.30-5.90) m/uL Hgb (13.0-17.5) gm/dL Hct (39.0-53.0) % Plt Count (150-450) k/uL Neutrophils # (1.3-7.7) k/uL Sodium (137-145) mmol/L Glucose (74-99) mg/dL POC Glucose (mg/dL) 126 H 121 H 133 H (75-99) mg/dL Calcium (8.4-10.2) mg/dL Alkaline Phosphatase (38-126) U/L Total Protein (6.3-8.2) g/dL Albumin (3.5-5.0) g/dL Assessment and Plan Assessment: CAD s/p 4 vessel bypass being managed by CT surgery Acute blood loss anemia and thrombocytopenia - Anticipated and expected out come of surgery - Repeat CBC tomorrow morning DM2 - Discontinue insulin GGT and start sliding scale - Follow accuchecks - Hold metformin - Preop HgB A1C 6.4 Leukocytosis -WBC count of 12.1 -Likely reactive, no signs of infection -Repeat CBC tomorrow morning Chronic systolic CHF with EF 40% - Beta Kadie - Losartan HLD - Statin, zetia GERD - PPI Obesity BMI 31.6 - Outpatient structured weight loss HTN - Metoprolol, amlodipine added by CT surgery Resolved: Pyrexia Thank you for allowing us to participate in the care of this pleasant patient. Do not hesitate to contact us with questions. Someone can be reached from the [facility] hospitalist group all hours of the day at [phone] or via perfect serve.
[2020-02-26 20:20] LABS: Glucose,Whole Blood 145 mg/dL (75-99)
[2020-02-26] MEDS ORDERED: METOPROLOL TARTRATE 50 MG TAB PO SCH (21:00)
[2020-02-26] MEDS: EZETIMIBE 10 MG TAB PO SCH (21:36)
[2020-02-26] MEDS: SENNOSIDES-DOCUSATE SODIUM 1 EACH TAB PO SCH (21:37)
[2020-02-26 21:46] LABS: Glucose,Whole Blood 146 mg/dL (75-99)
[2020-02-27 03:25] LABS: HCT 21.3 % (39.0-53.0); HGB 7.2 gm/dL (13.0-17.5); MCH 30.9 pg (25.0-35.0); MCHC 33.6 g/dL (31.0-37.0); MCV 92.1 fL (80.0-100.0); Mean Platelet Volume 8.2; Platelet Count 136 k/uL (150-450); RBC 2.32 m/uL (4.30-5.90); RDW 14.3 % (11.5-15.5); WBC 10.9 k/uL (3.8-10.6)
[2020-02-27 03:39] LABS: Calcium 8.5 mg/dL (8.4-10.2); Magnesium 2.3 mg/dL (1.6-2.3); Potassium 4.6 mmol/L (3.5-5.1)
[2020-02-27] MEDS: KETOROLAC 15 MG/ML 1 ML VIAL IVP SCH ×2 (06:58→12:13)
[2020-02-27 07:04] LABS: Glucose,Whole Blood 146 mg/dL (75-99)
[2020-02-27] MEDS: PANTOPRAZOLE 40 MG TABLET PO SCH ×2 (07:45→17:58)
[2020-02-27] MEDS: ASCORBIC ACID 500 MG TAB PO SCH ×2 (07:45→17:59)
[2020-02-27] MEDS: FERROUS SULFATE 325 MG TAB PO SCH ×2 (07:46→17:59)
[2020-02-27] MEDS: INSULIN ASPART (NovoLOG) 100 UNIT/ML VIAL SQ SCH ×4 (07:46→20:11)
--- NOTE | 2020-02-27 08:10 | P.PN ---
Subjective Progress Note Date: 02/27/20 Principal diagnosis: Triple-vessel coronary artery disease with thinned out distal anteroapical and inferior wall, mild to moderate mitral valve regurgitation. Previous medical hi story of coronary artery disease status post prior stenting to the right coronary artery with inferior wall myocardial infarction, chronic systolic heart failure/ischemic cardiomyopathy with EF 40%, diabetes mellitus with hemoglobin A1c 6.4%, hypertension, previous tobacco dependence with preoperative FEV1 86% of predicted and mild restrictive disease, obstructive sleep apnea without home CPAP use, daily marijuana use, previous GI bleed with severe anemia, strong family history of coronary artery disease with premature coronary artery disease, brother from myocardial infarction in his 40s. POD #3 quadruple coronary artery bypass grafting using the left internal mammary artery to the left anterior descending artery after endarterectomy, left radial artery from the aorta to the second obtuse marginal artery, reverse saphenous vein graft from the aorta to the diagonal artery, reverse saphenous vein graft from the aorta to the posterior descending artery. Endoscopic harvesting of the left radial artery. Endoscopic harvesting of the right greater saphenous veinfrom a level. Intraoperative transesophageal echocardiogram and epi-aortic scanning. Intraoperative graft flow measurements using the [email or web address] system. Postoperative acute blood loss anemia and thrombocytopenia, expected given hemodilution and cardiopulmonary bypass pump as well as patient's previous history of anemia The patient is currently sitting up in a recliner in the intensive care unit in no acute distress. Does complain of postsurgical chest pain but does state that it is controlled on current medication regimen, denies shortness of breath. Remains in sinus rhythm, hemodynamically stable. He has remained afebrile. All lines and tubes discontinued yesterday and transfers replaced with results [facility] stepdown unit. Patient was ambulatory yesterday without difficulty. No new concerns. Objective - Vital Signs Vital signs: Vital Signs Temp 98.3 F 02/27/20 04:00 Pulse 83 02/27/20 04:00 Resp 20 02/27/20 04:00 BP 123/65 02/27/20 04:00 Pulse Ox 94 L 02/27/20 04:00 Intake & Output 02/26/20 02/27/20 02/27/20 18:59 06:59 18:59 Intake Total 445.924 0 Output Total 1675 625 Balance -1229.076 -625 Intake: IV 238 0 Pressure Bags 18 Sodium Chloride 0.9% 1, 220 0 000 ml @ 20 mls/hr IV . Q24H RAPHAEL Rx#:[id number] Intake, IV Titration 57.924 Amount Insulin Regular 100 unit 57.924 In Sodium Chloride 0.9% 100 ml @ Per Protocol IV .Q0M RAPHAEL Rx#:[id number] Oral 150 Output: Chest Tube Drainage 80 Bilateral Mediastinal 30 Left Anterior Chest 50 Urine 1595 625 Other: Voiding Method Indwelling Catheter Urinal # Voids 1 ABP, PAP, CO, CI - Last Documented Arterial Blood Pressure 158/62 Pulmonary Artery Pressure 19/6 Cardiac Output 7.9 Cardiac Index 3.7 - Constitutional General appearance: Present: cooperative, no acute distress - Respiratory Details: Lung sounds diminished bilaterally. Respirations even, nonlabored. Currently on room air with an oxygen saturation 94%. Able to achieve 1250 mL on his incentive spirometry. Strong, productive cough - Cardiovascular Details: S1, S2 present. Regular rate and rhythm, sinus rhythm to sinus tach on telemetry. Sternum stable. Atrial epicardial pacemaker wires present, grounded. Palpable peripheral pulses bilaterally. Trace bilateral lower extremity edema present. No calf pain or tenderness noted. Heart hugger in place with patient demonstrating appropriate use. Antiembolism stockings, SCDs present. - Gastrointestinal Gastrointestinal Comment(s): Abdomen soft, nontender, nondistended. Active bowel sounds present 4 quadrants. Tolerating diet. Positive flatus, negative bowel movement - Genitourinary Genitourinary Comment(s): Dwyer discontinued yesterday, patient has been able to void without difficulty - Integumentary Integumentary Comment(s): Skin is warm and dry with evidence of good perfusion. Anterior chest incision well approximated and covered with dry intact dressing. Left radial artery harvest site well approximated. Skin to left hand is warm, patient is able to wiggle his fingers, good cap refill. Right lower semi-EVH site well approximated. - Neurologic Neurologic: Present: CNII-XII intact - Musculoskeletal Musculoskeletal: Present: gait normal, strength equal bilaterally - Psychiatric Psychiatric: Present: A&O x's 3, appropriate affect, intact judgment & insight - Allied health notes Allied health notes reviewed: nursing - Labs CBC & Chem 7: 02/27/20 03:05 02/27/20 03:05 Labs: Abnormal Lab Results - Last 24 Hours (Table) 02/26/20 02/26/20 02/26/20 Range/Units 08:00 10:45 13:06 WBC (3.8-10.6) k/uL RBC (4.30-5.90) m/uL Hgb (13.0-17.5) gm/dL Hct (39.0-53.0) % Plt Count (150-450) k/uL Sodium (137-145) mmol/L BUN (9-20) mg/dL Glucose (74-99) mg/dL POC Glucose (mg/dL) 189 H 117 H 126 H (75-99) mg/dL 02/26/20 02/26/20 02/26/20 Range/Units 14:47 16:52 20:18 WBC (3.8-10.6) k/uL RBC (4.30-5.90) m/uL Hgb (13.0-17.5) gm/dL Hct (39.0-53.0) % Plt Count (150-450) k/uL Sodium (137-145) mmol/L BUN (9-20) mg/dL Glucose (74-99) mg/dL POC Glucose (mg/dL) 121 H 133 H 145 H (75-99) mg/dL 02/26/20 02/27/20 02/27/20 Range/Units 21:44 03:05 03:05 WBC 10.9 H (3.8-10.6) k/uL RBC 2.32 L (4.30-5.90) m/uL Hgb 7.2 L (13.0-17.5) gm/dL Hct 21.3 L (39.0-53.0) % Plt Count 136 L (150-450) k/uL Sodium 136 L (137-145) mmol/L BUN 23 H (9-20) mg/dL Glucose 121 H (74-99) mg/dL POC Glucose (mg/dL) 146 H (75-99) mg/dL 02/27/20 Range/Units 07:02 WBC (3.8-10.6) k/uL RBC (4.30-5.90) m/uL Hgb (13.0-17.5) gm/dL Hct (39.0-53.0) % Plt Count (150-450) k/uL Sodium (137-145) mmol/L BUN (9-20) mg/dL Glucose (74-99) mg/dL POC Glucose (mg/dL) 146 H (75-99) mg/dL - Imaging and Cardiology Chest x-ray: pending Assessment and Plan Assessment: 1. Triple-vessel coronary artery disease with thinned out distal anteroapical and inferior wall, unstable angina, status post four-vessel CABG 2. Mild to moderate mitral valve regurgitation 3. History of coronary artery disease status post prior stenting to the right coronary artery with inferior wall myocardial infarction 4. Chronic systolic heart failure/ischemic cardiomyopathy with EF 40% 5. Diabetes mellitus with hemoglobin A1c 6.4% 6. Hypertension 7. Previous tobacco dependence with preoperative FEV1 86% of predicted and mild restrictive disease 8. Obstructive sleep apnea without home CPAP use 9. Daily marijuana use 10. Previous GI bleed with severe anemia 11. Strong family history of coronary artery disease with premature coronary artery disease, brother from myocardial infarction in his 40s. 12. Postoperative acute blood loss anemia and thrombocytopenia, expected Plan: 1. Continue aspirin, statin, Plavix, beta jigna therapy. Will increase beta jigna therapy as tolerated, increased metoprolol to 75 mg twice daily today. 2. Continue oral CCB for radial artery spasm prophylaxis, Norvasc changed to Cardizem for better heart rate control. Do not discontinue CCB without discussing with cardiac surgery 3. Encourage incentive spirometry 10 times every hour while awake. Bronchodilators per pulmonology. 4. Increase activity, ambulate as tolerated. PT/OT/cardiac rehab consulted 5. Will monitor daily labs and x-rays. Electrolyte replacement per protocol. No transfusion at this time. Will give 20 mg IV Lasix 1 today 6. GI/DVT prophylaxis 7. Diabetic management per primary care service. Hemoglobin A1c 6.4% 8. Pain control with current medication regimen 9. Accurate intake and output. Daily weights. 10. Transfer orders placed for [address] [place] [address] cardiac stepdown unit yesterday. May transfer when bed available 11. Discharge planning in progress. Likely will discharge to home with home care in the next 24-48 hours dependent on control of blood pressure and heart rate 12. More recommendations to follow based on patient's progress Seen and examined and agree with above Time with Patient: Greater than 30
[2020-02-27] MEDS: HEPARIN SODIUM,PORCINE 5,000 UNIT/ML 1 ML VIAL SQ SCH ×3 (08:38→23:05)
[2020-02-27] MEDS: METOPROLOL TARTRATE 25 MG TAB PO SCH ×2 (08:38→20:10)
[2020-02-27] MEDS: CLOPIDOGREL 75 MG TAB PO SCH (08:38)
[2020-02-27] MEDS: ASPIRIN 325 MG TAB PO SCH (08:38)
[2020-02-27] MEDS: LOSARTAN 25 MG TAB PO SCH (08:38)
[2020-02-27] MEDS: ATORVASTATIN 40 MG TAB PO SCH (08:39)
[2020-02-27] MEDS: IPRATROPIUM-ALBUTEROL 3 ML NEB INHALATION SCH ×4 (08:45→19:46)
[2020-02-27] MEDS ORDERED: FUROSEMIDE 10 MG/ML 2 ML VIAL IV ONE (09:00)
--- NOTE | 2020-02-27 09:08 | XR ---
EXAMINATION TYPE: XR chest 2V DATE OF EXAM: 02/27/2020 COMPARISON: 02/26/2020 TECHNIQUE: PA and lateral views submitted. HISTORY: Post cardiac FINDINGS: The heart is enlarged and there is postoperative change. Subsegmental consolidation involving both crystal ngs are improving. No overt failure or pneumothorax. Hypertrophic and degenerative change spine. Smal l bilateral pleural effusions persist. Chest tube no longer seen with certainty. IMPRESSION: Improving bilateral airspace disease with persistent small effusions and residual basilar atelectasis favored over pneumonia.
[2020-02-27] MEDS: DILTIAZEM ORAL 30 MG TAB PO SCH ×3 (10:39→23:05)
[2020-02-27 11:42] LABS: Glucose,Whole Blood 144 mg/dL (75-99)
[2020-02-27] MEDS ORDERED: amLODIPine 10 MG TAB PO SCH (12:00)
--- NOTE | 2020-02-27 13:07 | P.PN ---
Subjective Progress Note Date: 02/27/20 Principal diagnosis: Status post CABG. Postoperative day #3 This is a 69-year-old white male with known history of coronary artery disease, previous AL in 2006, multiple prior stent placements, hypertension, dyslipidemia, history of GI bleeding with anemia, and strong family history of coronary artery disease premature, less than 60 years of age. Remote history of smoking quit smoking in 1983, occasional marijuana use, patient was seen recently by cardiology, and he underwent cardiac catheterization to evaluate symptoms of angina/unstable angina. His cardiac catheterization showed multivessel coronary artery disease, with 90% stenosis of LAD, 90% stenosis of circumflex, there was a, left main, obtuse marginal with 50%, and proximal RCA 70% in stent stenosis. Patient was advised aggressive risk factors modifications, and considering that the ostial LAD and circumflex disease noted to be heavily calcified, CABG was recommended. Today the patient underwent myocardial revascularization. Postoperatively, patient was on mechanical ventilation, and I was asked to see him on consultation. Preop spirometry showed that the patient had FEV1 of 86%, FEV1/FVC was normal. Postoperative chest x-ray showed no evidence of active disease, endotracheal tube, Edison-Milady c atheter, and other tubes were noted to be in proper position patient is sedated, patient is now on clevidipine for elevated blood pressure, his also on milrinone and on nitroglycerin. Chest x-ray was reviewed ventilator settings were also reviewed and he is now on assist control mode of mechanical ventilation rate of 12 tidal volume is 550, FiO2 on the percent and PEEP of 5 ABG showed a pO2 of 15 3 pCO2 of 55 pH of 7.22, hence will increase rate up to 18. Patient was reevaluated today on 02/25/20, patient is postoperative day #1, status post quadruple coronary artery bypass grafting using [place] to LAD, left radial artery from aorta to second obtuse margin artery reverse saphenous vein graft from the aorta to the diagonal artery and reverse saphenous vein graft from the aorta to the posterior descending artery. Patient remains on mechanical ventilation overnight, he was noted later after transferred to the ICU from the OR to have a synchrony with mechanical ventilation, he was at the [facility] on Precedex, and was poorly ventilating. Hence I had to give the patient 1 dose of Nimbex, discontinued the Precedex, placed the patient on propofol overnight. This morning he is back on propofol, he received only 1 dose of Nimbex last night, and he seems to be quite comfortable. Patient was given a short trial with a pressure support and CPAP, his weaning parameters were excellent, then I proceeded to extubating the patient uneventfully. Patient was reevaluated today on 02/26/20, he is now postoperative day #2. Patient was extubated yesterday uneventfully within a few hours after he arrived to the ICU. He is currently resting in a recliner in the ICU, he has minimal postsurgical chest pain, and in the chest tube sites, denies any shortness of breath, no cough, no wheezing. Remains hemodynamically stable, and in normal sinus rhythm, not requiring any inotropes or pressors. Mediastinal and left pleural chest tubes remain in place. Chest x-ray showed mostly atelectasis at the bases. Patient was reevaluated today on 02/27/20, he is now postoperative day #3, patient is sitting in a chair, relatively asymptomatic, he is on room air. No cough no wheezing no shortness of breath. Chest x-ray showed minimal atelectasis and he received 1 dose of Lasix earlier today 20 mg IV push. He is doing fairly well with incentive spirometry. Has minimal post surgical pain. He is in sinus rhythm and rhythm, hemodynamically stable, afebrile, all lines and tubes were removed yesterday. And transfer to a stepdown is in progress. Objective - Vital Signs Vital signs: Vital Signs Temp 98.3 F 02/27/20 08:00 Pulse 81 02/27/20 12:01 Resp 16 02/27/20 08:00 BP 141/62 02/27/20 08:00 Pulse Ox 95 02/27/20 08:00 Intake & Output 02/26/20 02/27/20 02/27/20 18:59 06:59 18:59 Intake Total 445.924 0 Output Total 1675 625 Balance -1229.076 -625 Weight 98.4 kg Intake: IV 238 0 Pressure Bags 18 Sodium Chloride 0.9% 1, 220 0 000 ml @ 20 mls/hr IV . Q24H RAPHAEL Rx#:[id number] Intake, IV Titration 57.924 Amount Insulin Regular 100 unit 57.924 In Sodium Chloride 0.9% 100 ml @ Per Protocol IV .Q0M RAPHAEL Rx#:[id number] Oral 150 Output: Chest Tube Drainage 80 Bilateral Mediastinal 30 Left Anterior Chest 50 Urine 1595 625 Other: Voiding Method Indwelling Catheter Urinal # Voids 1 ABP, PAP, CO, CI - Last Documented Arterial Blood Pressure 158/62 Pulmonary Artery Pressure 19/6 Cardiac Output 7.9 Cardiac Index 3.7 - Exam Physical Exam: Revealed 69-year-old white male , in no distress. Pleasant. On room air. Head: Atraumatic, normocephalic. HEENT:[Neck is supple.] [No neck masses.] [No thyromegaly.] [No JVD.] Chest: Symmetrical chest expansion [no crackles or rhonchi or wheezes. Mediastinal and left pleural chest tube noted. Cardiac Exam: Normal S1 and S2, no S3 gallop, positive pericardial rub .Sternum stable. Atrial epicardial pacemaker wires present, grounded. Palpable p eripheral pulses bilaterally. Trace bilateral lower extremity edema present. No calf pain or tenderness noted. Heart hugger in place with patient demonstrating appropriate use. Antiembolism stockings, SCDs present. Abdomen: [Soft, nontender, no megaly, no rebound, no guarding, normal bowel sounds.] Extremities: [No clubbing, no edema, no cyanosis.] Neurological Exam: Alert and oriented 3, no gross focal neurologic deficits. Psychiatric: Normal mood, affect, Skin: No rashes - Labs CBC & Chem 7: 02/27/20 03:05 02/27/20 03:05 Labs: Abnormal Lab Results - Last 24 Hours (Table) 02/26/20 02/26/20 02/26/20 Range/Units 13:06 14:47 16:52 WBC (3.8-10.6) k/uL RBC (4.30-5.90) m/uL Hgb (13.0-17.5) gm/dL Hct (39.0-53.0) % Plt Count (150-450) k/uL Sodium (137-145) mmol/L BUN (9-20) mg/dL Glucose (74-99) mg/dL POC Glucose (mg/dL) 126 H 121 H 133 H (75-99) mg/dL 02/26/20 02/26/20 02/27/20 Range/Units 20:18 21:44 03:05 WBC 10.9 H (3.8-10.6) k/uL RBC 2.32 L (4.30-5.90) m/uL Hgb 7.2 L (13.0-17.5) gm/dL Hct 21.3 L (39.0-53.0) % Plt Count 136 L (150-450) k/uL Sodium (137-145) mmol/L BUN (9-20) mg/dL Glucose (74-99) mg/dL POC Glucose (mg/dL) 145 H 146 H (75-99) mg/dL 02/27/20 02/27/20 02/27/20 Range/Units 03:05 07:02 11:41 WBC (3.8-10.6) k/uL RBC (4.30-5.90) m/uL Hgb (13.0-17.5) gm/dL Hct (39.0-53.0) % Plt Count (150-450) k/uL Sodium 136 L (137-145) mmol/L BUN 23 H (9-20) mg/dL Glucose 121 H (74-99) mg/dL POC Glucose (mg/dL) 146 H 144 H (75-99) mg/dL Assessment and Plan Assessment: Impression: Status post CABG, postoperative day #3 Postoperative atelectasis, expected. History of type 2 diabetes. History of previous AL. Dyslipidemia. Benign essential hypertension. Family history of premature coronary artery disease. former smoker, quit in 1983. History of unstable angina. History of GI bleeding and anemia secondary to GI blood loss. Recommendation: Continue aspirin statins Plavix and beta blockers. Continue incentive spirometry, patient is achieving about 1250. Consider transfer to a monitor bed on selective. GI and DVT prophylaxis. Continue bronchodilators. We'll continue to follow. Time with Patient: Less than 30
--- NOTE | 2020-02-27 15:10 | P.PN ---
Subjective Progress Note Date: 02/27/20 This is a 69-year-old gentleman, postoperative day #3. Patient is sitting in the chair and seemed to be asymptomatic. He claims he is feeling better. No arrhythmias noted. No wheezing. Her complaints of shortness of breath. All the chest tubes are removed. Patient is waiting to be transferred to an stepdown unit. He is encouraged to use spirometry. Increase activity as tolerated. Possible ossible discharge within next one or 2 days. Objective - Vital Signs Vital signs: Vital Signs Temp 98.3 F 02/27/20 08:00 Pulse 81 02/27/20 12:01 Resp 16 02/27/20 08:00 BP 141/62 02/27/20 08:00 Pulse Ox 95 02/27/20 08:00 Intake & Output 02/26/20 02/27/20 02/27/20 18:59 06:59 18:59 Intake Total 445.924 0 Output Total 1675 625 Balance -1229.076 -625 Weight 98.4 kg Intake: IV 238 0 Pressure Bags 18 Sodium Chloride 0.9% 1, 220 0 000 ml @ 20 mls/hr IV . Q24H RAPHAEL Rx#:[id number] Intake, IV Titration 57.924 Amount Insulin Regular 100 unit 57.924 In Sodium Chloride 0.9% 100 ml @ Per Protocol IV .Q0M RAPHAEL Rx#:[id number] Oral 150 Output: Chest Tube Drainage 80 Bilateral Mediastinal 30 Left Anterior Chest 50 Urine 1595 625 Other: Voiding Method Indwelling Catheter Urinal # Voids 1 ABP, PAP, CO, CI - Last Documented Arterial Blood Pressure 158/62 Pulmonary Artery Pressure 19/6 Cardiac Output 7.9 Cardiac Index 3.7 - Exam GENERAL EXAM: Patient is alert and oriented and doesn't appear to be in any acute distress HEENT: Normocephalic. Normal reaction of pupils, equal size, normal range of extraocular motion. No erythema or exudates in the throat. NECK: No masses, no nuchal rigidity. CHEST: No chest wall deformity. LUNGS:Diminished breath sounds at bases HEART: [S1 and S2 normal with no audible mumurs or gallops. Regular rhythm, femorals equal on both sides..] ABDOMEN: No hepatosplenomegaly, normal bowel sounds, no guarding or rigidity. SKIN: No rashes CENTRAL NERVOUS SYSTEM: No focal deficits. EXTREMITIES: [No cyanosis, clubbing or edema.] - Labs CBC & Chem 7: 02/27/20 03:05 02/27/20 03:05 Labs: Abnormal Lab Results - Last 24 Hours (Table) 02/26/20 02/26/20 02/26/20 Range/Units 16:52 20:18 21:44 WBC (3.8-10.6) k/uL RBC (4.30-5.90) m/uL Hgb (13.0-17.5) gm/dL Hct (39.0-53.0) % Plt Count (150-450) k/uL Sodium (137-145) mmol/L BUN (9-20) mg/dL Glucose (74-99) mg/dL POC Glucose (mg/dL) 133 H 145 H 146 H (75-99) mg/dL 02/27/20 02/27/20 02/27/20 Range/Units 03:05 03:05 07:02 WBC 10.9 H (3.8-10.6) k/uL RBC 2.32 L (4.30-5.90) m/uL Hgb 7.2 L (13.0-17.5) gm/dL Hct 21.3 L (39.0-53.0) % Plt Count 136 L (150-450) k/uL Sodium 136 L (137-145) mmol/L BUN 23 H (9-20) mg/dL Glucose 121 H (74-99) mg/dL POC Glucose (mg/dL) 146 H (75-99) mg/dL 02/27/20 Range/Units 11:41 WBC (3.8-10.6) k/uL RBC (4.30-5.90) m/uL Hgb (13.0-17.5) gm/dL Hct (39.0-53.0) % Plt Count (150-450) k/uL Sodium (137-145) mmol/L BUN (9-20) mg/dL Glucose (74-99) mg/dL POC Glucose (mg/dL) 144 H (75-99) mg/dL Assessment and Plan (1) Status post aorto-coronary artery bypass graft Current Visit: Yes Status: Acute Code(s): Z95.1 - PRESENCE OF AORTOCORONARY BYPASS GRAFT SNOMED Code(s): 475934376 (2) CAD (coronary artery disease) Current Visit: Yes Status: Acute Code(s): I25.10 - ATHSCL HEART DISEASE OF [place] CORONARY ARTERY W/O ANG PCTRS SNOMED Code(s): 46706427 (3) Essential hypertension Current Visit: Yes Status: Acute Code(s): I10 - ESSENTIAL (PRIMARY) HYPERTENSION SNOMED Code(s): 00035699 Plan: Continue current medical therapy. Increase activity and incentive spirometry.
--- NOTE | 2020-02-27 16:52 | P.PN ---
Subjective Progress Note Date: 02/27/20 Patient was seen and examined. No acute events overnight. Patient seen with his . He denies any chest pain, shortness of breath or palpitations. No nausea or vomiting. No fever or chills. Hitting 2000 on the incentive spirometer. Objective - Vital Signs Vital signs: Vital Signs Temp 98.3 F 02/27/20 08:00 Pulse 85 02/27/20 15:56 Resp 16 02/27/20 08:00 BP 141/62 02/27/20 08:00 Pulse Ox 95 02/27/20 08:00 Intake & Output 02/26/20 02/27/20 02/27/20 18:59 06:59 18:59 Intake Total 445.924 0 Output Total 1675 625 Balance -1229.076 -625 Weight 98.4 kg Intake: IV 238 0 Pressure Bags 18 Sodium Chloride 0.9% 1, 220 0 000 ml @ 20 mls/hr IV . Q24H RAPHAEL Rx#:[id number] Intake, IV Titration 57.924 Amount Insulin Regular 100 unit 57.924 In Sodium Chloride 0.9% 100 ml @ Per Protocol IV .Q0M RAPHAEL Rx#:[id number] Oral 150 Output: Chest Tube Drainage 80 Bilateral Mediastinal 30 Left Anterior Chest 50 Urine 1595 625 Other: Voiding Method Indwelling Catheter Urinal Urinal # Voids 1 ABP, PAP, CO, CI - Last Documented Arterial Blood Pressure 158/62 Pulmonary Artery Pressure 19/6 Cardiac Output 7.9 Cardiac Index 3.7 - Exam General: [non toxic], [no distress], [appears at stated age] Derm: [warm], [dry] Head: [atraumatic], [normocephalic], [symmetric] Eyes: [EOMI], [no lid lag], [anicteric sclera] Mouth: [no lip lesion], [mucus membranes moist] Cardiovascular: [S1S2 reg], [no murmur], [positive DP pulse bilateral], [chest wall incision dressing clean dry and intact] Lungs: [Decreased breath sounds bilateral], [no rhonchi, no rales] , [no accessory muscle use] Abdominal: [soft], [ nontender to palpation], [no guarding], [no appreciable organomegaly] Ext: [no gross muscle atrophy], [no edema], [no contractures] Neuro: [no focal neuro deficits] Psych: [Alert], [oriented], [appropriate affect] - Labs CBC & Chem 7: 02/27/20 03:05 02/27/20 03:05 Labs: Abnormal Lab Results - Last 24 Hours (Table) 02/26/20 02/26/20 02/26/20 Range/Units 16:52 20:18 21:44 WBC (3.8-10.6) k/uL RBC (4.30-5.90) m/uL Hgb (13.0-17.5) gm/dL Hct (39.0-53.0) % Plt Count (150-450) k/uL Sodium (137-145) mmol/L BUN (9-20) mg/dL Glucose (74-99) mg/dL POC Glucose (mg/dL) 133 H 145 H 146 H (75-99) mg/dL 02/27/20 02/27/20 02/27/20 Range/Units 03:05 03:05 07:02 WBC 10.9 H (3.8-10.6) k/uL RBC 2.32 L (4.30-5.90) m/uL Hgb 7.2 L (13.0-17.5) gm/dL Hct 21.3 L (39.0-53.0) % Plt Count 136 L (150-450) k/uL Sodium 136 L (137-145) mmol/L BUN 23 H (9-20) mg/dL Glucose 121 H (74-99) mg/dL POC Glucose (mg/dL) 146 H (75-99) mg/dL 02/27/20 Range/Units 11:41 WBC (3.8-10.6) k/uL RBC (4.30-5.90) m/uL Hgb (13.0-17.5) gm/dL Hct (39.0-53.0) % Plt Count (150-450) k/uL Sodium (137-145) mmol/L BUN (9-20) mg/dL Glucose (74-99) mg/dL POC Glucose (mg/dL) 144 H (75-99) mg/dL Assessment and Plan Assessment: CAD s/p 4 vessel bypass being managed by CT surgery Acute blood loss anemia and thrombocytopenia - Anticipated and expected outcome of surgery - Repeat CBC tomorrow morning DM2 - Continue sliding scale - Follow accuchecks - Hold metformin - Preop HgB A1C 6.4 Leukocytosis -WBC count of 10.9 -Likely reactive, no signs of infection -Repeat CBC tomorrow morning Chronic systolic CHF with EF 40% - Beta Kadie - Losartan HLD - Statin, zetia GERD - PPI Obesity BMI 31.1 - Outpatient structured weight loss HTN - Metoprolol, amlodipine added by CT surgery Resolved: Pyrexia Thank you for allowing us to participate in the care of this pleasant patient. Do not hesitate to contact us with questions. Someone can be reached from the [facility] hospitalist group all hours of the day at [phone] or via [employer].
[2020-02-27 17:54] LABS: Glucose,Whole Blood 163 mg/dL (75-99)
[2020-02-27 20:06] LABS: Glucose,Whole Blood 135 mg/dL (75-99)
[2020-02-27] MEDS: SENNOSIDES-DOCUSATE SODIUM 1 EACH TAB PO SCH (20:11)
[2020-02-27] MEDS: EZETIMIBE 10 MG TAB PO SCH (21:08)
[2020-02-28 02:19] LABS: Glucose,Whole Blood 122 mg/dL (75-99)
[2020-02-28 03:09] LABS: HCT 20.8 % (39.0-53.0); MCHC 33.1 g/dL (31.0-37.0); MCV 93.7 fL (80.0-100.0); Mean Platelet Volume 8.3; Platelet Count 195 k/uL (150-450); RBC 2.22 m/uL (4.30-5.90); RDW 14.6 % (11.5-15.5); WBC 10.4 k/uL (3.8-10.6)
[2020-02-28 03:41] LABS: Calcium 8.2 mg/dL (8.4-10.2); Magnesium 2.3 mg/dL (1.6-2.3); Potassium 4.2 mmol/L (3.5-5.1)
[2020-02-28 03:47] LABS: HGB 6.9 gm/dL (13.0-17.5)
[2020-02-28] MEDS: DILTIAZEM ORAL 30 MG TAB PO SCH ×4 (03:56→19:41)
[2020-02-28] MEDS: ASCORBIC ACID 500 MG TAB PO SCH ×2 (06:50→16:59)
[2020-02-28] MEDS: PANTOPRAZOLE 40 MG TABLET PO SCH ×2 (06:51→16:59)
[2020-02-28] MEDS: FERROUS SULFATE 325 MG TAB PO SCH ×2 (06:51→16:59)
[2020-02-28 06:56] LABS: Glucose,Whole Blood 118 mg/dL (75-99)
[2020-02-28] MEDS: INSULIN ASPART (NovoLOG) 100 UNIT/ML VIAL SQ SCH ×4 (06:56→21:08)
[2020-02-28] MEDS: IPRATROPIUM-ALBUTEROL 3 ML NEB INHALATION SCH ×4 (07:37→20:40)
--- NOTE | 2020-02-28 09:11 | P.PN ---
Subjective Progress Note Date: 02/28/20 Principal diagnosis: Triple-vessel coronary artery disease with thinned out distal anteroapical and inferior wall, mild to moderate mitral valve regurgitation. Previous medical hi story of coronary artery disease status post prior stenting to the right coronary artery with inferior wall myocardial infarction, chronic systolic heart failure/ischemic cardiomyopathy with EF 40%, diabetes mellitus with hemoglobin A1c 6.4%, hypertension, previous tobacco dependence with preoperative FEV1 86% of predicted and mild restrictive disease, obstructive sleep apnea without home CPAP use, daily marijuana use, previous GI bleed with severe anemia, strong family history of coronary artery disease with premature coronary artery disease, brother from myocardial infarction in his 40s. POD #4 quadruple coronary artery bypass grafting using the left internal mammary artery to the left anterior descending artery after endarterectomy, left radial artery from the aorta to the second obtuse marginal artery, reverse saphenous vein graft from the aorta to the diagonal artery, reverse saphenous vein graft from the aorta to the posterior descending artery. Endoscopic harvesting of the left radial artery. Endoscopic harvesting of the right greater saphenous veinfrom a level. Intraoperative transesophageal echocardiogram and epi-aortic scanning. Intraoperative graft flow measurements using the [facility] [employer] system. Postoperative acute blood loss anemia and thrombocytopenia, expected given hemodilution and cardiopulmonary bypass pump as well as patient's previous history of anemia The patient is currently sitting up in a recliner in the intensive care unit in no acute distress. States postsurgical chest pain is controlled on current medication regimen, denies shortness of breath. Remains in sinus rhythm, hemodynamically stable. He has remained afebrile. Patient has been ambulatory in the hallway without difficulty. Hemoglobin 6.9 this morning but patient is hemodynamically stable. No new concerns. Objective - Vital Signs Vital signs: Vital Signs Temp 98.9 F 02/28/20 04:00 Pulse 101 H 02/28/20 07:50 Resp 14 02/28/20 04:00 BP 126/54 02/28/20 04:00 Pulse Ox 97 02/28/20 04:00 Intake & Output 02/27/20 02/28/20 02/28/20 18:59 06:59 18:59 Intake Total 500 Output Total 750 300 225 Balance -750 200 -225 Weight 98.4 kg 99.1 kg Intake: Oral 500 Output: Urine 750 300 225 Other: Voiding Method Urinal Urinal # Voids 1 2 1 ABP, PAP, CO, CI - Last Documented Arterial Blood Pressure 158/62 Pulmonary Artery Pressure 19/6 Cardiac Output 7.9 Cardiac Index 3.7 - Constitutional General appearance: Present: cooperative, no acute distress - Respiratory Details: Lung sounds diminished bilaterally. Respirations even, nonlabored. Currently on room air with an oxygen saturation 97%. Able to achieve 2000 mL on his in centive spirometry. Strong, productive cough - Cardiovascular Details: S1, S2 present. Regular rate and rhythm, sinus rhythm to sinus tach on telemetry. Sternum stable. Atrial epicardial pacemaker wires present, grounded. Palpable peripheral pulses bilaterally. Trace bilateral lower extremity edema present. No calf pain or tenderness noted. Heart hugger in place with patient demonstrating appropriate use. Antiembolism stockings, SCDs present. - Gastrointestinal Gastrointestinal Comment(s): Abdomen soft, nontender, nondistended. Active bowel sounds present 4 quadrants. Tolerating diet. Positive flatus, negative bowel movement - Genitourinary Genitourinary Comment(s): Continues to void clear, yellow urine - Integumentary Integumentary Comment(s): Skin is warm and dry with evidence of good perfusion. Anterior chest incision well approximated and covered with dry intact dressing. Left radial artery harvest site well approximated. Skin to left hand is warm, patient is able to wiggle his fingers, good cap refill. Right lower semi-EVH site well approximated. - Neurologic Neurologic: Present: CNII-XII intact - Musculoskeletal Musculoskeletal: Present: gait normal, strength equal bilaterally - Psychiatric Psychiatric: Present: A&O x's 3, appropriate affect, intact judgment & insight - Allied health notes Allied health notes reviewed: nursing - Labs CBC & Chem 7: 02/28/20 02:50 02/28/20 02:50 Labs: Abnormal Lab Results - Last 24 Hours (Table) 02/27/20 02/27/20 02/27/20 Range/Units 11:41 17:53 20:04 RBC (4.30-5.90) m/uL Hgb (13.0-17.5) gm/dL Hct (39.0-53.0) % Sodium (137-145) mmol/L BUN (9-20) mg/dL Glucose (74-99) mg/dL POC Glucose (mg/dL) 144 H 163 H 135 H (75-99) mg/dL Calcium (8.4-10.2) mg/dL 02/28/20 02/28/20 02/28/20 Range/Units 02:18 02:50 02:50 RBC 2.22 L (4.30-5.90) m/uL Hgb 6.9 L* (13.0-17.5) gm/dL Hct 20.8 L (39.0-53.0) % Sodium 135 L (137-145) mmol/L BUN 24 H (9-20) mg/dL Glucose 115 H (74-99) mg/dL POC Glucose (mg/dL) 122 H (75-99) mg/dL Calcium 8.2 L (8.4-10.2) mg/dL 02/28/20 Range/Units 06:54 RBC (4.30-5.90) m/uL Hgb (13.0-17.5) gm/dL Hct (39.0-53.0) % Sodium (137-145) mmol/L BUN (9-20) mg/dL Glucose (74-99) mg/dL POC Glucose (mg/dL) 118 H (75-99) mg/dL Calcium (8.4-10.2) mg/dL - Imaging and Cardiology Chest x-ray: pending Assessment and Plan Assessment: 1. Triple-vessel coronary artery disease with thinned out distal anteroapical and inferior wall, unstable angina, status post four-vessel CABG 2. Mild to moderate mitral valve regurgitation 3. History of coronary artery disease status post prior stenting to the right coronary artery with inferior wall myocardial infarction 4. Chronic systolic heart failure/ischemic cardiomyopathy with EF 40% 5. Diabetes mellitus with hemoglobin A1c 6.4% 6. Hypertension 7. Previous tobacco dependence with preoperative FEV1 86% of predicted and mild restrictive disease 8. Obstructive sleep apnea without home CPAP use 9. Daily marijuana use 10. Previous GI bleed with severe anemia 11. Strong family history of coronary artery disease with premature coronary artery disease, brother from myocardial infarction in his 40s. 12. Postoperative acute blood loss anemia and thrombocytopenia, expected Plan: 1. Continue aspirin, statin, Plavix, beta jigna therapy. Will increase beta jigna therapy as tolerated. 2. Continue oral CCB for radial artery spasm prophylaxis, Cardizem increased for better heart rate control. Do not discontinue CCB without discussing with cardiac surgery 3. Encourage incentive spirometry 10 times every hour while awake. Bronchodilators per pulmonology. 4. Increase activity, ambulate as tolerated. PT/OT/cardiac rehab consulted 5. Will monitor daily labs and x-rays. Electrolyte replacement per protocol. No transfusion at this time. 6. GI/DVT prophylaxis 7. Diabetic management per primary care service. Hemoglobin A1c 6.4% 8. Pain control with current medication regimen 9. Accurate intake and output. Daily weights. 10. Transfer orders placed for [address] [place] [place] [address] cardiac stepdown unit. May transfer when bed available 11. Discharge planning in progress. Likely will discharge to home with home care in the next 24 hours dependent on control of blood pressure and heart rate 12. More recommendations to follow based on patient's progress Seen and examined and agree with above Time with Patient: Greater than 30
[2020-02-28] MEDS: HEPARIN SODIUM,PORCINE 5,000 UNIT/ML 1 ML VIAL SQ SCH ×3 (10:17→23:15)
[2020-02-28] MEDS: ASPIRIN 325 MG TAB PO SCH (10:17)
[2020-02-28] MEDS: METOPROLOL TARTRATE 25 MG TAB PO SCH ×2 (10:17→19:40)
[2020-02-28] MEDS: CLOPIDOGREL 75 MG TAB PO SCH (10:17)
[2020-02-28] MEDS: ATORVASTATIN 40 MG TAB PO SCH (10:17)
--- NOTE | 2020-02-28 10:20 | XR ---
EXAMINATION TYPE: XR chest 2V DATE OF EXAM: 02/28/2020 COMPARISON: 02/27/2020 HISTORY: 61 year-old male post cardiac surgery TECHNIQUE: PA and lateral views FINDINGS: Heart borderline enlarged. Mild interstitial prominence appears largely chronic. Patchy and strandy l eft basilar and retrocardiac opacity and a small effusion. Median sternotomy wires and post-CABG clip s. IMPRESSION: Similar small left effusion with patchy retrocardiac atelectasis and/or consolidation.
--- NOTE | 2020-02-28 11:22 | P.PN ---
Subjective Progress Note Date: 02/28/20 Principal diagnosis: Status post CABG. Postoperative day #4 This is a 69-year-old white male with known history of coronary artery disease, previous NE in 2006, multiple prior stent placements, hypertension, dyslipidemia, history of GI bleeding with anemia, and strong family history of coronary artery disease premature, less than 60 years of age. Remote history of smoking quit smoking in 1983, occasional marijuana use, patient was seen recently by cardiology, and he underwent cardiac catheterization to evaluate symptoms of angina/unstable angina. His cardiac catheterization showed multivessel coronary artery disease, with 90% stenosis of LAD, 90% stenosis of circumflex, there was a, left main, obtuse marginal with 50%, and proximal RCA 70% in stent stenosis. Patient was advised aggressive risk factors modifications, and considering that the ostial LAD and circumflex disease noted to be heavily calcified, CABG was recommended. Today the patient underwent myocardial revascularization. Postoperatively, patient was on mechanical ventilation, and I was asked to see him on consultation. Preop spirometry showed that the patient had FEV1 of 86%, FEV1/FVC was normal. Postoperative chest x-ray showed no evidence of active disease, endotracheal tube, Pemberton-Milady c atheter, and other tubes were noted to be in proper position patient is sedated, patient is now on clevidipine for elevated blood pressure, his also on milrinone and on nitroglycerin. Chest x-ray was reviewed ventilator settings were also reviewed and he is now on assist control mode of mechanical ventilation rate of 12 tidal volume is 550, FiO2 on the percent and PEEP of 5 ABG showed a pO2 of 15 3 pCO2 of 55 pH of 7.22, hence will increase rate up to 18. Patient was reevaluated today on 02/25/20, patient is postoperative day #1, status post quadruple coronary artery bypass grafting using [place] to LAD, left radial artery from aorta to second obtuse margin artery reverse saphenous vein graft from the aorta to the diagonal artery and reverse saphenous vein graft from the aorta to the posterior descending artery. Patient remains on mechanical ventilation overnight, he was noted later after transferred to the ICU from the OR to have a synchrony with mechanical ventilation, he was at the [facility] on Precedex, and was poorly ventilating. Hence I had to give the patient 1 dose of Nimbex, discontinued the Precedex, placed the patient on propofol overnight. This morning he is back on propofol, he received only 1 dose of Nimbex last night, and he seems to be quite comfortable. Patient was given a short trial with a pressure support and CPAP, his weaning parameters were excellent, then I proceeded to extubating the patient uneventfully. Patient was reevaluated today on 02/26/20, he is now postoperative day #2. Patient was extubated yesterday uneventfully within a few hours after he arrived to the ICU. He is currently resting in a recliner in the ICU, he has minimal postsurgical chest pain, and in the chest tube sites, denies any shortness of breath, no cough, no wheezing. Remains hemodynamically stable, and in normal sinus rhythm, not requiring any inotropes or pressors. Mediastinal and left pleural chest tubes remain in place. Chest x-ray showed mostly atelectasis at the bases. Patient was reevaluated today on 02/27/20, he is now postoperative day #3, patient is sitting in a chair, relatively asymptomatic, he is on room air. No cough no wheezing no shortness of breath. Chest x-ray showed minimal atelectasis and he received 1 dose of Lasix earlier today 20 mg IV push. He is doing fairly well with incentive spirometry. Has minimal post surgical pain. He is in sinus rhythm and rhythm, hemodynamically stable, afebrile, all lines and tubes were removed yesterday. And transfer to a stepdown is in progress. Reevaluated today on 02/28/20, remains in the ICU as an overflow, patient is postoperative day #4. Hemoglobin is 6.9 today, thoracic surgery to decide whether to transfuse the patient, however he is asymptomatic, may not really needs a transfusion at this point. Patient is hemodynamically stable, denies any significant pain other than the postsurgical chest pain. Denies any shortness of breath, not requiring any pressors or any inotropes. Has been ambulatory in the hallway without difficulty. Electrolytes are normal renal profile is normal hemoglobin is 6.9. Chest x-ray showed small left effusion and retrocardiac atelectasis. Objective - Vital Signs Vital signs: Vital Signs Temp 98.5 F 02/28/20 08:00 Pulse 101 H 02/28/20 08:00 Resp 16 02/28/20 08:00 BP 142/66 02/28/20 08:00 Pulse Ox 97 02/28/20 08:00 Intake & Output 02/27/20 02/28/20 02/28/20 18:59 06:59 18:59 Intake Total 500 400 Output Total 750 300 425 Balance -750 200 -25 Weight 98.4 kg 99.1 kg Intake: Oral 500 400 Output: Urine 750 300 425 Other: Voiding Method Urinal Urinal # Voids 1 2 1 ABP, PAP, CO, CI - Last Documented Arterial Blood Pressure 158/62 Pulmonary Artery Pressure 19/6 Cardiac Output 7.9 Cardiac Index 3.7 - Exam Physical Exam: Revealed 69-year-old white male , in no distress. Pleasant. On room air. Head: Atraumatic, normocephalic. HEENT:[Neck is supple.] [No neck masses.] [No thyromegaly.] [No JVD.] Chest: Symmetrical chest expansion [no crackles or rhonchi or wheezes. Achieving 2000 muscle on incentive spirometry. Cardiac Exam: Normal S1 and S2, no S3 gallop, Sternum stable. Atrial epicardial pacemaker wires present, grounded. Palpable peripheral pulses bilaterally. Trace bilateral lower extremity edema present. No calf pain or tenderness noted. Heart hugger in place with patient demonstrating appropriate use. Antiembolism stockings, SCDs present. Abdomen: [Soft, nontender, no megaly, no rebound, no guarding, normal bowel kendell nds.] Extremities: [No clubbing, no edema, no cyanosis.] Neurological Exam: Alert and oriented 3, no gross focal neurologic deficits. Psychiatric: Normal mood, affect, Skin: No rashes - Labs CBC & Chem 7: 02/28/20 02:50 02/28/20 02:50 Labs: Abnormal Lab Results - Last 24 Hours (Table) 02/27/20 02/27/20 02/27/20 Range/Units 11:41 17:53 20:04 RBC (4.30-5.90) m/uL Hgb (13.0-17.5) gm/dL Hct (39.0-53.0) % Sodium (137-145) mmol/L BUN (9-20) mg/dL Glucose (74-99) mg/dL POC Glucose (mg/dL) 144 H 163 H 135 H (75-99) mg/dL Calcium (8.4-10.2) mg/dL 10/18/20 10/18/20 10/18/20 Range/Units 02:18 02:50 02:50 RBC 2.22 L (4.30-5.90) m/uL Hgb 6.9 L* (13.0-17.5) gm/dL Hct 20.8 L (39.0-53.0) % Sodium 135 L (137-145) mmol/L BUN 24 H (9-20) mg/dL Glucose 115 H (74-99) mg/dL POC Glucose (mg/dL) 122 H (75-99) mg/dL Calcium 8.2 L (8.4-10.2) mg/dL 02/28/20 Range/Units 06:54 RBC (4.30-5.90) m/uL Hgb (13.0-17.5) gm/dL Hct (39.0-53.0) % Sodium (137-145) mmol/L BUN (9-20) mg/dL Glucose (74-99) mg/dL POC Glucose (mg/dL) 118 H (75-99) mg/dL Calcium (8.4-10.2) mg/dL Assessment and Plan Assessment: Impression: Status post CABG, postoperative day #4 Postoperative atelectasis, expected. History of type 2 diabetes. History of previous NE. Dyslipidemia. Benign essential hypertension. Family history of premature coronary artery disease. former smoker, quit in 1983. History of unstable angina. History of GI bleeding and anemia secondary to GI blood loss. Recommendation: Continue aspirin statins Plavix and beta blockers. Continue incentive spirometry, patient is achieving about 2000 ml GI and DVT prophylaxis. Continue bronchodilators. We'll continue to follow. Discharge planning is in progress likely home in the next 24 hours. Time with Patient: Less than 30
[2020-02-28] MEDS ORDERED: LOSARTAN 50 MG TAB PO SCH (12:00)
[2020-02-28 12:04] LABS: Glucose,Whole Blood 126 mg/dL (75-99)
[2020-02-28] MEDS: LOSARTAN 25 MG TAB PO SCH (12:35)
[2020-02-28] MEDS ORDERED: FUROSEMIDE 10 MG/ML 2 ML VIAL IV ONE (13:41)
[2020-02-28 16:46] LABS: Glucose,Whole Blood 121 mg/dL (75-99)
--- NOTE | 2020-02-28 16:53 | P.PN ---
Subjective Progress Note Date: 02/28/20 Patient was seen and examined. No acute events overnight. Patient seen with his . He denies any chest pain, shortness of breath or palpitations. No nausea or vomiting. No fever or chills. Urinating freely. No bowel movement since surgery. Hemoglobin 6.9 this morning. No dizziness. Objective - Vital Signs Vital signs: Vital Signs Temp 97.8 F 02/28/20 16:00 Pulse 98 02/28/20 16:49 Resp 18 02/28/20 16:00 BP 146/65 02/28/20 16:00 Pulse Ox 98 02/28/20 16:00 Intake & Output 02/27/20 02/28/20 02/28/20 18:59 06:59 18:59 Intake Total 500 400 Output Total 750 300 425 Balance -750 200 -25 Weight 98.4 kg 99.1 kg Intake: Oral 500 400 Output: Urine 750 300 425 Other: Voiding Method Urinal Urinal Toilet Urinal # Voids 1 2 0 ABP, PAP, CO, CI - Last Documented Arterial Blood Pressure 158/62 Pulmonary Artery Pressure 19/6 Cardiac Output 7.9 Cardiac Index 3.7 - Exam General: [non toxic], [no distress], [appears at stated age] Derm: [warm], [dry] Head: [atraumatic], [normocephalic], [symmetric] Eyes: [EOMI], [no lid lag], [anicteric sclera] Mouth: [no lip lesion], [mucus membranes moist] Cardiovascular: [S1S2 reg], [no murmur], [positive DP pulse bilateral], [chest wall incision dressing clean dry and intact] Lungs: [Decreased breath sounds bilateral], [no rhonchi, no rales] , [no accessory muscle use] Abdominal: [soft], [ nontender to palpation], [no guarding], [no appreciable organomegaly] Ext: [no gross muscle atrophy], [no edema], [no contractures] Neuro: [no focal neuro deficits] Psych: [Alert], [oriented], [appropriate affect] - Labs CBC & Chem 7: 02/28/20 02:50 02/28/20 02:50 Labs: Abnormal Lab Results - Last 24 Hours (Table) 02/27/20 02/27/20 02/28/20 Range/Units 17:53 20:04 02:18 RBC (4.30-5.90) m/uL Hgb (13.0-17.5) gm/dL Hct (39.0-53.0) % Sodium (137-145) mmol/L BUN (9-20) mg/dL Glucose (74-99) mg/dL POC Glucose (mg/dL) 163 H 135 H 122 H (75-99) mg/dL Calcium (8.4-10.2) mg/dL 02/28/20 02/28/20 02/28/20 Range/Units 02:50 02:50 06:54 RBC 2.22 L (4.30-5.90) m/uL Hgb 6.9 L* (13.0-17.5) gm/dL Hct 20.8 L (39.0-53.0) % Sodium 135 L (137-145) mmol/L BUN 24 H (9-20) mg/dL Glucose 115 H (74-99) mg/dL POC Glucose (mg/dL) 118 H (75-99) mg/dL Calcium 8.2 L (8.4-10.2) mg/dL 02/28/20 02/28/20 Range/Units 12:02 16:45 RBC (4.30-5.90) m/uL Hgb (13.0-17.5) gm/dL Hct (39.0-53.0) % Sodium (137-145) mmol/L BUN (9-20) mg/dL Glucose (74-99) mg/dL POC Glucose (mg/dL) 126 H 121 H (75-99) mg/dL Calcium (8.4-10.2) mg/dL Assessment and Plan Assessment: CAD s/p 4 vessel bypass being managed by CT surgery Acute blood loss anemia and thrombocytopenia - Anticipated and expected outcome of surgery - Transfusion recommendations based on CT surgery - Repeat CBC tomorrow morning DM2 - Continue sliding scale - Follow accuchecks - Hold metformin - Preop HgB A1C 6.4 Chronic systolic CHF with EF 40% - Beta Kadie - Losartan HLD - Statin, zetia GERD - PPI Obesity BMI 31.3 - Outpatient structured weight loss HTN - Metoprolol, amlodipine added by CT surgery Resolved: Pyrexia, Leukocytosis Thank you for allowing us to participate in the care of this pleasant patient. Do not hesitate to contact us with questions. Someone can be reached from the [facility] hospitalist group all hours of the day at [phone] or via [employer].
[2020-02-28] MEDS: SENNOSIDES-DOCUSATE SODIUM 1 EACH TAB PO SCH (19:40)
[2020-02-28 20:45] LABS: Glucose,Whole Blood 139 mg/dL (75-99)
[2020-02-28] MEDS: EZETIMIBE 10 MG TAB PO SCH (21:09)
[2020-02-28 23:24] VITALS: RESP 16
[2020-02-29 02:06] LABS: Glucose,Whole Blood 120 mg/dL (75-99)
[2020-02-29] MEDS: DILTIAZEM ORAL 30 MG TAB PO SCH (02:20)
[2020-02-29 06:22] LABS: Glucose,Whole Blood 130 mg/dL (75-99)
[2020-02-29] MEDS: FERROUS SULFATE 325 MG TAB PO SCH (06:34)
[2020-02-29] MEDS: INSULIN ASPART (NovoLOG) 100 UNIT/ML VIAL SQ SCH (06:34)
[2020-02-29] MEDS: ASCORBIC ACID 500 MG TAB PO SCH (06:34)
[2020-02-29] MEDS: PANTOPRAZOLE 40 MG TABLET PO SCH (06:34)
[2020-02-29] MEDS ORDERED: PANTOPRAZOLE 40 MG TABLET PO ONE (07:30)
[2020-02-29] MEDS ORDERED: ASCORBIC ACID 500 MG TAB ONE (07:30)
[2020-02-29] MEDS ORDERED: FERROUS SULFATE 325 MG TAB PO ONE (07:30)
[2020-02-29] MEDS: IPRATROPIUM-ALBUTEROL 3 ML NEB INHALATION SCH ×2 (07:57→10:45)
[2020-02-29 08:42] LABS: HCT 23.5 % (39.0-53.0); HGB 7.7 gm/dL (13.0-17.5); MCH 30.9 pg (25.0-35.0); MCHC 32.9 g/dL (31.0-37.0); MCV 94.1 fL (80.0-100.0); Mean Platelet Volume 7.6; Platelet Count 292 k/uL (150-450); RDW 15.1 % (11.5-15.5); WBC 11.5 k/uL (3.8-10.6)
[2020-02-29 08:52] VITALS: BP 141/64; PULSE 98; TEMP 97.8
[2020-02-29] MEDS: ATORVASTATIN 40 MG TAB PO SCH (08:52)
[2020-02-29] MEDS: ASPIRIN 325 MG TAB PO SCH (08:52)
[2020-02-29] MEDS: HEPARIN SODIUM,PORCINE 5,000 UNIT/ML 1 ML VIAL SQ SCH (08:53)
[2020-02-29] MEDS: CLOPIDOGREL 75 MG TAB PO SCH (08:53)
[2020-02-29 08:56] LABS: Calcium 8.6 mg/dL (8.4-10.2); Potassium 4.7 mmol/L (3.5-5.1)
[2020-02-29] MEDS ORDERED: DILTIAZEM CD 240 MG CAP.ER.24H PO SCH (09:00)
[2020-02-29] MEDS ORDERED: METOPROLOL TARTRATE 50 MG TAB PO SCH (09:00)
[2020-02-29] MEDS ORDERED: FUROSEMIDE 10 MG/ML 2 ML VIAL IV ONE (09:01)
--- NOTE | 2020-02-29 09:05 | XR ---
EXAMINATION TYPE: XR chest 2V DATE OF EXAM: 02/29/2020 COMPARISON: Prior chest x-ray 02/28/2020 HISTORY: Status post cardiac surgery, abnormal chest x-ray TECHNIQUE: Frontal and lateral views of the chest are obtained. FINDINGS: Findings are similar to prior exam. Patient is post median sternotomy. Heart is unchanged, borderline enlarged. Patchy density persists at the left lung base. There is no evident pneumothorax . There are overlying leads and artifacts. IMPRESSION: Stable postoperative findings. Left lower lobe atelectasis, minimal effusion suspected.
--- NOTE | 2020-02-29 10:05 | P.PN ---
Subjective Progress Note Date: 02/29/20 Principal diagnosis: Triple-vessel coronary artery disease with thinned out distal anteroapical and inferior wall, mild to moderate mitral valve regurgitation. Previous medical hi story of coronary artery disease status post prior stenting to the right coronary artery with inferior wall myocardial infarction, chronic systolic heart failure/ischemic cardiomyopathy with EF 40%, diabetes mellitus with hemoglobin A1c 6.4%, hypertension, previous tobacco dependence with preoperative FEV1 86% of predicted and mild restrictive disease, obstructive sleep apnea without home CPAP use, daily marijuana use, previous GI bleed with severe anemia, strong family history of coronary artery disease with premature coronary artery disease, brother from myocardial infarction in his 40s. POD #5 quadruple coronary artery bypass grafting using the left internal mammary artery to the left anterior descending artery after endarterectomy, left radial artery from the aorta to the second obtuse marginal artery, reverse saphenous vein graft from the aorta to the diagonal artery, reverse saphenous vein graft from the aorta to the posterior descending artery. Endoscopic harvesting of the left radial artery. Endoscopic harvesting of the right greater saphenous veinfrom a level. Intraoperative transesophageal echocardiogram and epi-aortic scanning. Intraoperative graft flow measurements using the [employer] system. Postoperative acute blood loss anemia and thrombocytopenia, expected given hemodilution and cardiopulmonary bypass pump as well as patient's previous history of anemia The patient is currently sitting up in a recliner in the intensive care unit in no acute distress. States postsurgical chest pain is controlled on current medication regimen, denies shortness of breath. Remains in sinus rhythm, hemodynamically stable. He has remained afebrile. Patient has been ambulatory in the hallway without difficulty. Had first postoperative shower yesterday. No new concerns, feels ready to go home. Objective - Vital Signs Vital signs: Vital Signs Temp 97.8 F 02/29/20 08:51 Pulse 98 02/29/20 08:51 Resp 16 02/29/20 08:51 BP 141/64 02/29/20 08:51 Pulse Ox 98 02/29/20 08:51 Intake & Output 02/28/20 02/29/20 02/29/20 18:59 06:59 18:59 Intake Total 636 100 240 Output Total 425 300 Balance 211 -200 240 Weight 99.1 kg 97.5 kg Intake: Oral 636 100 240 Output: Urine 425 300 Other: Voiding Method Toilet Toilet Toilet Urinal Urinal Urinal # Voids 0 ABP, PAP, CO, CI - Last Documented Arterial Blood Pressure 158/62 Pulmonary Artery Pressure 19/6 Cardiac Output 7.9 Cardiac Index 3.7 - Constitutional General appearance: Present: cooperative, no acute distress - Respiratory Details: Lung sounds diminished bilaterally. Respirations even, nonlabored. Currently on room air with an oxygen saturation 97%. Able to achieve 5434-5471 mL on his incentive spirometry. Strong, productive cough - Cardiovascular Details: S1, S2 present. Regular rate and rhythm, sinus rhythm to sinus tach on telemetry. Sternum stable. Atrial epicardial pacemaker wires present, grounded . Palpable peripheral pulses bilaterally. Trace bilateral lower extremity edema present. No calf pain or tenderness noted. Heart hugger in place with patient demonstrating appropriate use. Antiembolism stockings, SCDs present. - Gastrointestinal Gastrointestinal Comment(s): Abdomen soft, nontender, nondistended. Active bowel sounds present 4 quadrant s. Tolerating diet. Positive bowel movement - Genitourinary Genitourinary Comment(s): Continues to void clear, yellow urine - Integumentary Integumentary Comment(s): Skin is warm and dry with evidence of good perfusion. Anterior chest incision well approximated and covered with dry intact dressing. Left radial artery harvest site well approximated. Skin to left hand is warm, patient is able to wiggle his fingers, good cap refill. Right lower semi-EVH site well approximated. - Neurologic Neurologic: Present: CNII-XII intact - Musculoskeletal Musculoskeletal: Present: gait normal, strength equal bilaterally - Psychiatric Psychiatric: Present: A&O x's 3, appropriate affect, intact judgment & insight - Allied health notes Allied health notes reviewed: nursing - Labs CBC & Chem 7: 02/29/20 08:09 02/29/20 08:09 Labs: Abnormal Lab Results - Last 24 Hours (Table) 02/28/20 02/28/20 02/28/20 Range/Units 12:02 16:45 20:43 WBC (3.8-10.6) k/uL RBC (4.30-5.90) m/uL Hgb (13.0-17.5) gm/dL Hct (39.0-53.0) % Sodium (137-145) mmol/L BUN (9-20) mg/dL Glucose (74-99) mg/dL POC Glucose (mg/dL) 126 H 121 H 139 H (75-99) mg/dL 02/29/20 02/29/20 02/29/20 Range/Units 02:05 06:20 08:09 WBC 11.5 H (3.8-10.6) k/uL RBC 2.50 L (4.30-5.90) m/uL Hgb 7.7 L (13.0-17.5) gm/dL Hct 23.5 L (39.0-53.0) % Sodium (137-145) mmol/L BUN (9-20) mg/dL Glucose (74-99) mg/dL POC Glucose (mg/dL) 120 H 130 H (75-99) mg/dL 02/29/20 Range/Units 08:09 WBC (3.8-10.6) k/uL RBC (4.30-5.90) m/uL Hgb (13.0-17.5) gm/dL Hct (39.0-53.0) % Sodium 135 L (137-145) mmol/L BUN 21 H (9-20) mg/dL Glucose 175 H (74-99) mg/dL POC Glucose (mg/dL) (75-99) mg/dL - Imaging and Cardiology Chest x-ray: report reviewed, image reviewed Assessment and Plan Assessment: 1. Triple-vessel coronary artery disease with thinned out distal anteroapical and inferior wall, unstable angina, status post four-vessel CABG 2. Mild to moderate mitral valve regurgitation 3. History of coronary artery disease status post prior stenting to the right coronary artery with inferior wall myocardial infarction 4. Chronic systolic heart failure/ischemic cardiomyopathy with EF 40% 5. Diabetes mellitus with hemoglobin A1c 6.4% 6. Hypertension 7. Previous tobacco dependence with preoperative FEV1 86% of predicted and mild restrictive disease 8. Obstructive sleep apnea without home CPAP use 9. Daily marijuana use 10. Previous GI bleed with severe anemia 11. Strong family history of coronary artery disease with premature coronary artery disease, brother from myocardial infarction in his 40s. 12. Postoperative acute blood loss anemia and thrombocytopenia, expected Plan: 1. Continue aspirin, statin, Plavix, beta jigna therapy. Will increase beta jigna therapy as tolerated, increase to 100 mg twice daily today. 2. Continue oral CCB for radial artery spasm prophylaxis. Do not discontinue CCB without discussing with cardiac surgery 3. Encourage incentive spirometry 10 times every hour while awake. Bronchodilators per pulmonology. 4. Increase activity, ambulate as tolerated. PT/OT/cardiac rehab consulted 5. GI/DVT prophylaxis 6. Diabetic management per primary care service. Hemoglobin A1c 6.4% 7. Pain control with current medication regimen 8. Epicardial pacemaker wire discontinued without incident. Patient to remain on bedrest for 1 hour post-wire removal 9. Accurate intake and output. Daily weights. 10. Will give 20 mg IV push Lasix 1 today. Patient will be discharged on 3 days worth of oral Lasix. 11. Discharge planning in progress. Will discharge to home with home care this afternoon 12. More recommendations to follow based on patient's progress Seen and examined and agree with above Time with Patient: Greater than 30
--- NOTE | 2020-02-29 10:44 | P.PN ---
Subjective Progress Note Date: 02/29/20 Patient was seen and examined. No acute events overnight. He denies any chest pain, shortness of breath or palpitations. No nausea or vomiting. No fever or chills. Urinating freely. Bowel movement today. Hemoglobin 7.7 this morning. No dizziness. Objective - Vital Signs Vital signs: Vital Signs Temp 97.8 F 02/29/20 08:51 Pulse 98 02/29/20 08:51 Resp 16 02/29/20 08:51 BP 141/64 02/29/20 08:51 Pulse Ox 98 02/29/20 08:51 Intake & Output 02/28/20 02/29/20 02/29/20 18:59 06:59 18:59 Intake Total 636 100 240 Output Total 425 300 Balance 211 -200 240 Weight 99.1 kg 97.5 kg Intake: Oral 636 100 240 Output: Urine 425 300 Other: Voiding Method Toilet Toilet Toilet Urinal Urinal Urinal # Voids 0 ABP, PAP, CO, CI - Last Documented Arterial Blood Pressure 158/62 Pulmonary Artery Pressure 19/6 Cardiac Output 7.9 Cardiac Index 3.7 - Exam General: [non toxic], [no distress], [appears at stated age] Derm: [warm], [dry] Head: [atraumatic], [normocephalic], [symmetric] Eyes: [EOMI], [no lid lag], [anicteric sclera] Mouth: [no lip lesion], [mucus membranes moist] Cardiovascular: [S1S2 reg], [no murmur], [positive DP pulse bilateral], [chest wall incision dressing clean dry and intact] Lungs: [Decreased breath sounds bilateral], [no rhonchi, no rales] , [no accessory muscle use] Abdominal: [soft], [ nontender to palpation], [no guarding], [no appreciable organomegaly] Ext: [no gross muscle atrophy], [no edema], [no contractures] Neuro: [no focal neuro deficits] Psych: [Alert], [oriented], [appropriate affect] - Labs CBC & Chem 7: 02/29/20 08:09 02/29/20 08:09 Labs: Abnormal Lab Results - Last 24 Hours (Table) 02/28/20 02/28/20 02/28/20 Range/Units 12:02 16:45 20:43 WBC (3.8-10.6) k/uL RBC (4.30-5.90) m/uL Hgb (13.0-17.5) gm/dL Hct (39.0-53.0) % Sodium (137-145) mmol/L BUN (9-20) mg/dL Glucose (74-99) mg/dL POC Glucose (mg/dL) 126 H 121 H 139 H (75-99) mg/dL 02/29/20 02/29/20 02/29/20 Range/Units 02:05 06:20 08:09 WBC 11.5 H (3.8-10.6) k/uL RBC 2.50 L (4.30-5.90) m/uL Hgb 7.7 L (13.0-17.5) gm/dL Hct 23.5 L (39.0-53.0) % Sodium (137-145) mmol/L BUN (9-20) mg/dL Glucose (74-99) mg/dL POC Glucose (mg/dL) 120 H 130 H (75-99) mg/dL 02/29/20 Range/Units 08:09 WBC (3.8-10.6) k/uL RBC (4.30-5.90) m/uL Hgb (13.0-17.5) gm/dL Hct (39.0-53.0) % Sodium 135 L (137-145) mmol/L BUN 21 H (9-20) mg/dL Glucose 175 H (74-99) mg/dL POC Glucose (mg/dL) (75-99) mg/dL Assessment and Plan Assessment: CAD s/p 4 vessel bypass being managed by CT surgery Acute blood loss anemia, improved - Anticipated and expected outcome of surgery - Transfusion recommendations based on CT surgery - Hg on discharge 7.7 Leukocytosis -No signs of active infection. Continue to monitor. Likely reactive. DM2 - Continue sliding scale - Follow accuchecks - Hold metformin - Preop HgB A1C 6.4 Chronic systolic CHF with EF 40% - Beta Kadie - Losartan HLD - Statin, zetia GERD - PPI Obesity BMI 31.3 - Outpatient structured weight loss HTN - Metoprolol, amlodipine added by CT surgery Resolved: Pyrexia Thank you for allowing us to participate in the care of this pleasant patient. Do not hesitate to contact us with questions. Someone can be reached from the [facility] hospitalist group all hours of the day at [phone] or via [employer].
[2020-02-29] MEDS: LOSARTAN 25 MG TAB PO SCH (11:09)
--- NOTE | 2020-02-29 11:28 | P.DS ---
Providers Date of admission: 02/24/20 05:32 Expected date of discharge: 02/29/20 Attending physician: Ramos Sanz Consults: 02/24/20 15:17 Consult Physician Routine Consulting Provider: Usha Iqbal Consult Reason/Comments: bri blanco; Dorinda patient Do you want consulting provider notified?: Yes Consult Physician Routine Consulting Provider: Gi Steve Consult Reason/Comments: Yard Conductor Consult: post cardiac surgery Do you want consulting provider notified?: Yes Consult Physician Routine Consulting Provider: Gutierrez Escobedo Consult Reason/Comments: Irrigation Engineer Consult: post cardiac surgery Do you want consulting provider notified?: Yes Primary care physician: Kelly Seth [facility] Course: FINAL DIAGNOSIS: 1. Triple-vessel coronary artery disease with thinned out distal anteroapical and inferior wall, unstable angina 2. Mild to moderate mitral valve regurgitation 3. History of coronary artery disease status post prior stenting to the right coronary artery with inferior wall myocardial infarction 4. Chronic systolic heart failure/ischemic cardiomyopathy with EF 40% 5. Diabetes mellitus with hemoglobin A1c 6.4% 6. Hypertension 7. Previous tobacco dependence with preoperative FEV1 86% of predicted, mild restrictive disease 8. Obstructive sleep apnea without home CPAP use 9. Daily marijuana use 10. Previous GI bleed with severe anemia 11. Strong family history of coronary artery disease with premature coronary artery disease 12. Postoperative acute blood loss anemia and thrombocytopenia, expected PRINCIPAL PROCEDURE: 1. Quadruple coronary artery bypass grafting using the left internal mammary artery to left anterior descending artery after endarterectomy, left radial artery from the aorta to the second obtuse marginal artery, reverse saphenous vein graft from the aorta to the diagonal artery, reverse saphenous vein graft from the aorta to the posterior descending artery 2. Endoscopic harvesting of the left radial artery 3. Endoscopic harvesting of the right greater saphenous vein from the groin to above the ankle level 4. Intraoperative transesophageal echocardiogram and epi-aortic scanning 5. Intraoperative graft flow measurements using the Muufri system HISTORY OF PRESENT ILLNESS: This is a 69-year-old active gentleman who follows on an outpatient basis with Dr. Seth. Recently he had been experiencing chest pressure relieved with rest, shortness of breath with activity, and episodes of nausea and dizziness. Due to his coronary history he was recommended to undergo heart catheterization which demonstrated 70-80% stenosis to the left main coronary artery involving both the origin of the left anterior descending coronary artery and circumflex coronary artery, 90-95% stenosis to the proximal left anterior descending coronary artery, 80-90% stenosis to the circumflex coronary artery, 50% stenosis to the third obtuse marginal artery, and 70% proximal in-stent restenosis to the right coronary artery. Of note, he had a 2- D echo at his dispensary attendant's office demonstrating moderately decreased systolic function with ejection fraction 40%, mild concentric left ventricular hy pertrophy, mild to moderate mitral valve regurgitation directed posteriorly, and mild to moderate tricuspid regurgitation. Consultation was placed to Dr. Sanz from cardiothoracic surgery. He was recommended to undergo coronary artery bypass surgery. The usual perioperative course was discussed in detail with the patient and his family, all risks and benefits were explained, all questions were answered, and consent was obtained to proceed with surgery. The patient was discharged to home from the extended stay unit on maximal medical therapy to return as an outpatient for surgery at the earliest possible date. HOSPITAL COURSE: The patient was brought to the hospital on 02/24/2020, taken to the preoperative area, prepared in the usual fashion, and subsequently taken to the operating room where Dr. Sanz performed 4 vessel CABG. Upon completion of surgery the patient was transferred to the cardiovascular intensive care unit where he was recovered, monitored hemodynamically, and where he progressed to cardiac rehabilitation phase 1. He was extubated, all lines, tubes, and drips were discontinued when appropriate, and he was transferred to 3 S. cardiac stepdown unit for further monitoring and rehabilitation. His oxygen was titrated down, he continued to work with physical and occupational therapy, he was tolerating oral diet, his pain was controlled, and he was ready to be discharged to home with [facility] care on postoperative day #5. He received written and verbal instruction regarding his medications, activity restrictions, signs and symptoms requiring physician notification, and follow-up appointments. COMPLICATIONS: The patient experienced postoperative acute blood loss anemia and thrombocytopenia which are expected and required no treatment. Patient Condition at Discharge: Stable Plan - Discharge Summary Discharge Rx Participant: No New Discharge Prescriptions: New Aspirin 325 mg PO DAILY #30 tab Diltiazem Cd [Cardizem CD] 240 mg PO DAILY #30 cap.er.24h Losartan [Cozaar] 25 mg PO DAILY@1200 #30 tab Furosemide [Lasix] 20 mg PO DAILY #3 tab Metoprolol Tartrate [Lopressor] 100 mg PO BID #60 tab Sennosides-Docusate Sodium [Senokot-S] 2 each PO HS PRN tab PRN Reason: Constipation Acetaminophen Tab [Tylenol] 1,000 mg PO Q6HR PRN tab PRN Reason: Fever And/ Or Pain Continue Ferrous Sulfate [Iron (65 MG Elemental)] 65 mg PO DAILY Rosuvastatin Calcium [Crestor] 20 mg PO HS #30 tab metFORMIN HCL [Glucophage] 500 mg PO BID #60 tab Clopidogrel [Plavix] 75 mg PO DAILY #30 tab Pantoprazole Sodium [Protonix] 40 mg PO BID #60 tab Ezetimibe [Zetia] 10 mg PO HS #30 tab Discontinued Losartan Potassium 100 mg PO DAILY amLODIPine [Norvasc] 5 mg PO BID Isosorbide Mononitrate [Isosorbide Mononitrate ER] 30 mg PO DAILY Metoprolol Succinate [Toprol XL] 100 mg PO DAILY Aspirin [Adult Low Dose Aspirin EC] 81 mg PO HS Mupirocin 2% Oint [Bactroban 2% Oint] 1 applic NASAL BID Aspirin 325 mg PO ONCE Discharge Medication List Ferrous Sulfate [Iron (65 MG Elemental)] 65 mg PO DAILY 06/16/15 [History] Acetaminophen Tab [Tylenol] 1,000 mg PO Q6HR PRN tab 02/29/20 [Rx] Aspirin 325 mg PO DAILY #30 tab 02/29/20 [Rx] Clopidogrel [Plavix] 75 mg PO DAILY #30 tab 02/29/20 [Rx] Diltiazem Cd [Cardizem CD] 240 mg PO DAILY #30 cap.er.24h 02/29/20 [Rx] Ezetimibe [Zetia] 10 mg PO HS #30 tab 02/29/20 [Rx] Furosemide [Lasix] 20 mg PO DAILY #3 tab 02/29/20 [Rx] Losartan [Cozaar] 25 mg PO DAILY@1200 #30 tab 02/29/20 [Rx] Metoprolol Tartrate [Lopressor] 100 mg PO BID #60 tab 02/29/20 [Rx] Pantoprazole Sodium [Protonix] 40 mg PO BID #60 tab 02/29/20 [Rx] Rosuvastatin Calcium [Crestor] 20 mg PO HS #30 tab 02/29/20 [Rx] Sennosides-Docusate Sodium [Senokot-S] 2 each PO HS PRN tab 02/29/20 [Rx] metFORMIN HCL [Glucophage] 500 mg PO BID #60 tab 02/29/20 [Rx] Follow up Appointment(s)/Referral(s): Rehab [facility],Cardiac [NON-STAFF] - 4 Weeks (You will receive a phone call for evaluation for cardiac rehab approximately 4-6 weeks after surgery) Ramos Sanz MD [STAFF PHYSICIAN] - 03/25/20 10:00 am Adrian Hensley DO [STAFF PHYSICIAN] - 03/11/20 2:15 pm Sophie Pimentel NPC [Nurse Practitioner] - 03/17/20 2:45 pm Haroldo Sweeney NPC [Nurse Practitioner] - 03/07/20 11:00 am [facility], [NON-STAFF] - Kelly Seth MD [Primary Care Provider] - 03/14/20 1:00 pm (Appointment with ANTONY Arce) Ambulatory/Diagnostic Orders: Complete Blood Count w/diff [LAB.AMB] Time Frame: 3 Days, Location: None Selected Comprehensive Metabolic Panel [LAB.AMB] Time Frame: 3 Days, Location: None Selected Activity/Diet/Wound Care/Special Instructions: DISCHARGE INSTRUCTIONS: 1. No driving for 4 weeks, or until physician gives their ok. 2. The patient should sleep in their own bed, no medical bed needed. 3. Stairs are not an issue. If the bedroom is upstairs, it is advised that the patient go up at night and down in the morning for the first week. Go slowly, using handrail and take 1 step at a time. 4. CORNELIA hose are to be worn for 30 days or until physician discontinues. 5. Heart hugger is to be worn 100% of the time until physician discontinues.(except when showering) 6. No lifting, pushing, or pulling more than 10 pounds for 12 weeks. The physician will advise of any restriction changes. 7. The patient is expected to continue the prescribed walking program. 8. Continue pain control per as needed orders. 9. Continue with incentive spirometry and splinting/heart hugger until otherwise directed by the physician. 10. Must shower daily using liquid antibacterial soap and a separate white washcloth for each individual incision. 11. Routine sternal incision care. No powders, lotions, ointments on incisions. No dressings are necessary on incisions unless they are draining. Dermabond tape is to remain on sternal incision until surgeon follow-up. 12. Please call surgeon/TRANSLATIONAL SPECIALIST for temp greater than 101 F or purulent drainage from incisions. 13. All prescriptions given by surgeon for 30 days. Refills need to be filled through dispensary attendant/primary care physician. 14. A Red armband has been placed on the patient. It should be worn for 30 days post surgery and will be removed by the cardiac surgeons. If an ER visit is necessary, please make sure the number on the Red armband is called. 15. You have been referred to and are expected to begin Cardiac Rehab in approximately 4-6 weeks. 16. Please monitor urine blood sugars before each meal and at bedtime, keep a log and bring with you to your appointment with Dr. Seth. HOME HEALTH SERVICES TO PROVIDE: RN SKILLED HOME CARE SERVICES FOR POST-OP SURGICAL PATIENTS WITH THE FOLLOWING: Coronary Artery Bypass Surgery (CABG), Mitral Valve Replacement/Repair ( MVR), Aortic Valve Replacement/Repair (AVR) RN TO CONTINUE EDUCATION FROM ``ROAD TO A HEALTH HEART PATIENT EDUCATION MANUAL (GIVEN TO PATIENT IN THE HOSPITAL) MEDICATION RECONCILIATION WITH EDUCATION NEEDED ON FIRST HOME VISIT EMPHASIZE IMPORTANCE OF WEARING BREAST SUPPORT/HEART HUGGER ENCOURAGE USE OF INCENTIVE SPIROMETER 10 X EVERY HOUR WHILE AWAKE ENCOURAGE UTILIZATION OF LOWER EXTREMITY COMPRESSION STOCKINGS/CORNELIA HOSE and ELEVATE LEGS ABOVE LEVEL OF HEART WHILE AT REST. ENCOURAGE AMBULATION 3-5x/day INCREASING TOLERATES, WHILE AVOIDING EXTREMES IN TEMPERATURE FREQUENCY: RN TO OPEN THE PATIENT WITHIN 24 HOURS OF DISCHARGE FROM THE HOSPITAL WITH TELEHEALTH INSTALLED AT [facility], RN TO VISIT 2-3 X A WEEK FOR 4 WEEKS ESTABLISHED BY PATIENT NEEDS. LABORATORY: CBC, CMP TO BE DRAWN ON THE THIRD DAY HOME, (RAN STAT) FAX RESULTS TO [phone]. TELEHEALTH PARAMETERS: WEIGHT: NOTIFY MD OF WEIGHT GAIN OF 2 LBS IN 24 HOURS OR 5 LBS IN ONE WEEK HR: NOTIFY MD OF HR <55 BPM OR HR>100 BPM BP: NOTIFY MD IF BP <90/55 OR BP>140/100 O2 SAT: NOTIFY MD IF PO2<93% ON ROOM AIR SEND TELEHEALTH REPORT TO SENIOR COMPLIANCE OFFICER AND CARDIOVASCULAR SURGEON THE FIRST WEEK OF CARE AND THEN BI-WEEKLY. PLEASE ADDITIONALLY COMMUNICATE ANY ABNORMALS AND NEW FINDINGS TO THE SURGEONS OFFICE. For any questions or concerns please call wiring technician Megan @ or Guillaume @ [employer] [phone] Discharge Disposition: HOME WITH HOME HEALTH SERVICES
[2020-02-29 11:56] LABS: Glucose,Whole Blood 133 mg/dL (75-99)
--- NOTE | 2020-02-29 12:04 | P.PN ---
Subjective HISTORY OF PRESENTING ILLNESS This is a pleasant 69-year-old male past medical history significant for coronary artery disease, diabetes mellitus, hypertension, chronic systolic heart failure and dyslipidemia. He follows in the office with Dr. Hensley. We have been asked to see in consultation for bypass grafting. He underwent quadru ple bypass yesterday with Dr. Sanz. He had a [place] to LAD, left radial artery to OM, SVG to diagonal branch and SVG to PDA. He is seen and examined sitting up in the chair and selective care unit. He denies symptoms of chest pain, dizziness or palpitations. He said when he is up and ambulating he does feel somewhat short of breath with activity. He is still complaining of discomfort at the incision site with significant movement or when he sneezes. Blood pressure 141/64 heart rate 98 afebrile maintaining oxygen saturation on room air. Laboratory data reviewed, WBC 11.5, hemoglobin 7.7, platelets 292, sodium 135, potassium 4.7, creatinine 1.07. Chest x-ray this morning reveals left lo wer lobe atelectasis with minimal effusion suspected. CT surgery is giving one dose of IV Lasix today. PHYSICAL EXAMINATION CONSTITUTIONAL: No apparent distress. HEENT: Head is normocephalic. Pupils are equal, round. Sclerae anicteric. Mucous membranes of the mouth are moist. No JVD. No carotid bruit. Right IJ swan in place. CHEST EXAMINATION: Lungs are clear to auscultation. No chest wall tenderness is noted on palpation or with deep breathing. Diminished. Mediastinal chest tube in place and left pelural chest tube in place. HEART EXAMINATION: Regular rate and rhythm. S1, S2 heard. Systolic ejection murmur at the left sternal border, no gallops or rub. Heart hugger in place. Sternal dressing intact. EXTREMITIES: 2+ peripheral pulses, no lower extremity edema and no calf tenderness. Right radial arterial line in place. ASSESSMENT Coronary artery disease status post four-vessel bypass grafting Anemia Thrombocytopenia Chronic systolic heart failure Ischemic cardiomyopathy Valvular heart disease Hypertension Diabetes mellitus Dyslipidemia PLAN Stable on current regimen. Follow up with Dr. Hensley upon discharge. Nurse Practitioner note has been reviewed, I agree with a documented findings and plan of care. Patient was seen and examined. Objective - Vital Signs Vital signs: Vital Signs Temp 97.8 F 02/29/20 08:51 Pulse 98 02/29/20 08:51 Resp 16 02/29/20 08:51 BP 141/64 02/29/20 08:51 Pulse Ox 98 02/29/20 08:51 Intake & Output 02/28/20 02/29/20 02/29/20 18:59 06:59 18:59 Intake Total 636 100 240 Output Total 425 300 Balance 211 -200 240 Weight 99.1 kg 97.5 kg Intake: Oral 636 100 240 Output: Urine 425 300 Other: Voiding Method Toilet Toilet Toilet Urinal Urinal Urinal # Voids 0 ABP, PAP, CO, CI - Last Documented Arterial Blood Pressure 158/62 Pulmonary Artery Pressure 19 Cardiac Output 7.9 Cardiac Index 3.7 - Labs CBC & Chem 7: 02/29/20 08:09 02/29/20 08:09 Labs: Abnormal Lab Results - Last 24 Hours (Table) 02/28/20 02/28/20 02/28/20 Range/Units 12:02 16:45 20:43 WBC (3.8-10.6) k/uL RBC (4.30-5.90) m/uL Hgb (13.0-17.5) gm/dL Hct (39.0-53.0) % Sodium (137-145) mmol/L BUN (9-20) mg/dL Glucose (74-99) mg/dL POC Glucose (mg/dL) 126 H 121 H 139 H (75-99) mg/dL 02/29/20 02/29/20 02/29/20 Range/Units 02:05 06:20 08:09 WBC 11.5 H (3.8-10.6) k/uL RBC 2.50 L (4.30-5.90) m/uL Hgb 7.7 L (13.0-17.5) gm/dL Hct 23.5 L (39.0-53.0) % Sodium (137-145) mmol/L BUN (9-20) mg/dL Glucose (74-99) mg/dL POC Glucose (mg/dL) 120 H 130 H (75-99) mg/dL 02/29/20 Range/Units 08:09 WBC (3.8-10.6) k/uL RBC (4.30-5.90) m/uL Hgb (13.0-17.5) gm/dL Hct (39.0-53.0) % Sodium 135 L (137-145) mmol/L BUN 21 H (9-20) mg/dL Glucose 175 H (74-99) mg/dL POC Glucose (mg/dL) (75-99) mg/dL
--- NOTE | 2020-02-29 16:09 | P.PN ---
Subjective Progress Note Date: 02/29/20 Principal diagnosis: Status post CABG, postoperative day #5 This is a 69-year-old white male with known history of coronary artery disease, previous MT in 2006, multiple prior stent placements, hypertension, dyslipidemia, history of GI bleeding with anemia, and strong family history of coronary artery disease premature, less than 60 years of age. Remote history of smoking quit smoking in 1983, occasional marijuana use, patient was seen recently by cardiology, and he underwent cardiac catheterization to evaluate symptoms of angina/unstable angina. His cardiac catheterization showed multivessel coronary artery disease, with 90% stenosis of LAD, 90% stenosis of circumflex, there was a, left main, obtuse marginal with 50%, and proximal RCA 70% in stent stenosis. Patient was advised aggressive risk factors modifications, and considering that the ostial LAD and circumflex disease noted to be heavily calcified, CABG was recommended. Today the patient underwent myocardial revascularization. Postoperatively, patient was on mechanical ventilation, and I was asked to see him on consultation. Preop spirometry showed that the patient had FEV1 of 86%, FEV1/FVC was normal. Postoperative chest x-ray showed no evidence of active disease, endotracheal tube, Pope-Milady catheter, and other tubes were noted to be in proper position patient is sedated, patient is now on clevidipine for elevated blood pressure, his also on milrinone and on nitroglycerin. Chest x-ray was reviewed ventilator settings were also reviewed and he is now on assist control mode of mechanical v entilation rate of 12 tidal volume is 550, FiO2 on the percent and PEEP of 5 ABG showed a pO2 of 153 pCO2 of 55 pH of 7.22, hence will increase rate up to 18. Patient was reevaluated today on 02/25/20, patient is postoperative day #1, status post quadruple coronary artery bypass grafting using M[place] to LAD, left radial artery from aorta to second obtuse margin artery reverse saphenous vein graft from the aorta to the diagonal artery and reverse saphenous vein graft from the aorta to the posterior descending artery. Patient remains on mechanical ventilation overnight, he was noted later after transferred to the ICU from the OR to have a synchrony with mechanical ventilation, he was at the time on Precedex, and was poorly ventilating. Hence I had to give the patient 1 dose of Nimbex, discontinued the Precedex, placed the patient on propofol overnight. This morning he is back on propofol, he received only 1 dose of Nimbex last night, and he seems to be quite comfortable. Patient was given a short trial with a pressure support and CPAP, his weaning parameters were excellent, then I proceeded to extubating the patient uneventfully. Patient was reevaluated today on 02/26/20, he is now postoperative day #2. Patient was extubated yesterday uneventfully within a few hours after he arrived to the ICU. He is currently resting in a recliner in the ICU, he has minimal postsurgical chest pain, and in the chest tube sites, denies any shortness of breath, no cough, no wheezing. Remains hemodynamically stable, and in normal sinus rhythm, not requiring any inotropes or pressors. Mediastinal and left pleural chest tubes remain in place. Chest x-ray showed mostly atelectasis at the bases. Patient was reevaluated today on 02/27/20, he is now postoperative day #3, patient is sitting in a chair, relatively asymptomatic, he is on room air. No cough no wheezing no shortness of breath. Chest x-ray showed minimal atelectasis and he received 1 dose of Lasix earlier today 20 mg IV push. He is doing fairly well with incentive spirometry. Has minimal post surgical pain. He is in sinus rhythm and rhythm, hemodynamically stable, afebrile, all lines and tubes were removed yesterday. And transfer to a stepdown is in progress. Reevaluated today on 02/28/20, remains in the ICU as an overflow, patient is postoperative day #4. Hemoglobin is 6.9 today, thoracic surgery to decide whether to transfuse the patient, however he is asymptomatic, may not really needs a transfusion at this point. Patient is hemodynamically stable, denies any significant pain other than the postsurgical chest pain. Denies any shortness of breath, not requiring any pressors or any inotropes. Has been ambulatory in the hallway without difficulty. Electrolytes are normal renal profile is normal hemoglobin is 6.9. Chest x-ray showed small left effusion and retrocardiac atelectasis. On 02/29/2020 patient seen in follow-up on. He is awake and alert, oriented 3, denies any specific complaints, room air pulse ox is 98%, hemodynamically patient has been stable. Today's chest x-ray shows a left lower lobe atelectasis, with minimal effusion. he received 1 dose of IV Lasix per CT surgery. All the chest tubes have been discontinued, patient has been tolerating ambulation. Continue on his incentive spirometer. He is tolerating oral diet, is had no acute events overnight. Objective - Vital Signs Vital signs: Vital Signs Temp 97.8 F 02/29/20 08:51 Pulse 98 02/29/20 08:51 Resp 16 02/29/20 08:51 BP 141/64 02/29/20 08:51 Pulse Ox 98 02/29/20 08:51 Intake & Output 02/28/20 02/29/20 02/29/20 18:59 06:59 18:59 Intake Total 636 100 480 Output Total 425 300 Balance 211 -200 480 Weight 99.1 kg 97.5 kg Intake: Oral 636 100 480 Output: Urine 425 300 Other: Voiding Method Toilet Toilet Toilet Urinal Urinal Urinal # Voids 0 ABP, PAP, CO, CI - Last Documented Arterial Blood Pressure 158/62 Pulmonary Artery Pressure 19/6 Cardiac Output 7.9 Cardiac Index 3.7 - Exam GENERAL EXAM: Alert, very pleasant, 69-year-old white male, on room air, with a pulse ox of 97% comfortable in no apparent distress. HEAD: Normocephalic/atraumatic. EYES: Normal reaction of pupils, equal size. Conjunctiva pink, sclera white. NOSE: Clear with pink turbinates. THROAT: No erythema or exudates. NECK: No masses, no JVD, no thyroid enlargement, no adenopathy. CHEST: No chest wall deformity. Symmetrical expansion. Midsternal incision is clean dry and intact, chest tube sites are clean dry and intact, covered with surgical dressings LUNGS: Equal air entry with no crackles, wheeze, rhonchi or dullness. CVS: Regular rate and rhythm, normal S1 and S2, no gallops, no murmurs, no rubs ABDOMEN: Soft, nontender. No hepatosplenomegaly, normal bowel sounds, no guarding or rigidity. EXTREMITIES: No clubbing, no edema, no cyanosis, 2+ pulses and upper and lower extremities. MUSCULOSKELETAL: Muscle strength and tone normal. SPINE: No scoliosis or deformity SKIN: No rashes. Left radial artery harvest site well approximated, clean dry and intact, right lower leg same EVH site well approximated, CENTRAL NERVOUS SYSTEM: Alert and oriented -3. No focal deficits, tone is normal in all 4 extremities. PSYCHIATRIC: Alert and oriented -3. Appropriate affect. Intact judgment and insight. - Labs CBC & Chem 7: 02/29/20 08:09 02/29/20 08:09 Labs: Abnormal Lab Results - Last 24 Hours (Table) 02/28/20 02/28/20 02/29/20 Range/Units 16:45 20:43 02:05 WBC (3.8-10.6) k/uL RBC (4.30-5.90) m/uL Hgb (13.0-17.5) gm/dL Hct (39.0-53.0) % Sodium (137-145) mmol/L BUN (9-20) mg/dL Glucose (74-99) mg/dL POC Glucose (mg/dL) 121 H 139 H 120 H (75-99) mg/dL 02/29/20 02/29/20 02/29/20 Range/Units 06:20 08:09 08:09 WBC 11.5 H (3.8-10.6) k/uL RBC 2.50 L (4.30-5.90) m/uL Hgb 7.7 L (13.0-17.5) gm/dL Hct 23.5 L (39.0-53.0) % Sodium 135 L (137-145) mmol/L BUN 21 H (9-20) mg/dL Glucose 175 H (74-99) mg/dL POC Glucose (mg/dL) 130 H (75-99) mg/dL 02/29/20 Range/Units 11:42 WBC (3.8-10.6) k/uL RBC (4.30-5.90) m/uL Hgb (13.0-17.5) gm/dL Hct (39.0-53.0) % Sodium (137-145) mmol/L BUN (9-20) mg/dL Glucose (74-99) mg/dL POC Glucose (mg/dL) 133 H (75-99) mg/dL Assessment and Plan Plan: Assessment: #1. Symptomatic multivessel coronary artery disease, status post renal artery bypass grafting, postoperative day #5 #2. Postoperative atelectasis, expected outcome of open heart surgery #3. History of type 2 diabetes mellitus #4. History of previous myocardial infarctions #5. History of dyslipidemia #6. Benign essential hypertension #7. Family history of premature coronary artery disease #8. Former smoker, in remission since 1983 #9. History of unstable angina #10. History of GI bleeding and anemia secondary to GI blood loss Plan: Patient is doing well, no acute events overnight, today's chest x-ray has been reviewed showing left lower lobe atelectasis with minimal pleural effusion, patient received a dose of IV Lasix per CT surgery, he is on room air, he is tolerating ambulation, no acute events overnight, no specific complaints, increase activity as tolerated, anticipate discharge home today. Will need outpatient follow-up with Dr. Del Valle in the office in 7-10 days I performed a history & physical examination of the patient and discussed their management with my nurse practitioner, Aiyana Solomon. I reviewed the nurse practitioner's note and agree with the documented findings and plan of care. Lung sounds are positive for diminished breath sounds. The findings and the impression was discussed with the patient. I attest to the documentation by the nurse practitioner. Time with Patient: Less than 30
== END 2020-02-29 13:15 | disposition home health service (06) | DRG 236 ==
LOC: 2ORMAIN 05:32 → 2SICU 15:39 → 3SCARD 02-28 12:05
PROVIDERS: ADMIT Surgery; ATTEND Surgery
PROC: 021109W Bypass Coronary Artery, Two Arteries from Aorta with Autologous Venous Tissue, Open Approach (ICD-10-PCS; principal; 2020-02-24 08:00)
PROC: 02100Z9 Bypass Coronary Artery, One Artery from Left Internal Mammary, Open Approach (ICD-10-PCS; principal; 2020-02-24 08:00)
PROC: 5A1221Z Performance of Cardiac Output, Continuous (ICD-10-PCS; principal; 2020-02-24 08:00)
PROC: 06BP4ZZ Excision of Right Saphenous Vein, Percutaneous Endoscopic Approach (ICD-10-PCS; principal; 2020-02-24 08:00)
PROC: 03BC4ZZ Excision of Left Radial Artery, Percutaneous Endoscopic Approach (ICD-10-PCS; principal; 2020-02-24 08:00)
PROC: 02100AW Bypass Coronary Artery, One Artery from Aorta with Autologous Arterial Tissue, Open Approach (ICD-10-PCS; principal; 2020-02-24 08:00)
DX: I25.110 Atherosclerotic heart disease of native coronary artery with unstable angina pectoris (principal); T82.855A Stenosis of coronary artery stent, initial encounter; I50.22 Chronic systolic (congestive) heart failure; D62 Acute posthemorrhagic anemia; J98.11 Atelectasis; D69.6 Thrombocytopenia, unspecified; I11.0 Hypertensive heart disease with heart failure; E11.9 Type 2 diabetes mellitus without complications; E78.5 Hyperlipidemia, unspecified; K21.9 Gastro-esophageal reflux disease without esophagitis; E66.9 Obesity, unspecified; I49.3 Ventricular premature depolarization; G47.33 Obstructive sleep apnea (adult) (pediatric); I25.5 Ischemic cardiomyopathy; D72.829 Elevated white blood cell count, unspecified; I08.1 Rheumatic disorders of both mitral and tricuspid valves; K59.00 Constipation, unspecified; Z68.31 Body mass index [BMI] 31.0-31.9, adult; Y83.1 Surgical operation with implant of artificial internal device as the cause of abnormal reaction of the patient, or of later complication, without mention of misadventure at the time of the procedure; I25.2 Old myocardial infarction; Z79.899 Other long term (current) drug therapy; Z79.82 Long term (current) use of aspirin; Z79.02 Long term (current) use of antithrombotics/antiplatelets; Z79.84 Long term (current) use of oral hypoglycemic drugs; Z95.5 Presence of coronary angioplasty implant and graft; Z87.19 Personal history of other diseases of the digestive system; Z87.891 Personal history of nicotine dependence; Z85.828 Personal history of other malignant neoplasm of skin; Z87.11 Personal history of peptic ulcer disease; Z98.890 Other specified postprocedural states; Z80.0 Family history of malignant neoplasm of digestive organs; Z82.49 Family history of ischemic heart disease and other diseases of the circulatory system
CPT/HCPCS: 36415; 71045; 71046; 80048; 80053; 82330; 82805; 83735; 85025; 85027; 85520; 85610; 85730; 86850; 86891; 86900; 86901; 86920; 88304; 88311; 94002; 94003; 94640

== ENCOUNTER → 2020-03-07 | Outpatient (CLI) | payer MEDICARE ==
[2020-03-07 14:27] LABS: Basophils # (A) 0.1 k/uL (0-0.2); Basophils % (A) 1 %; Eosinophils # (A) 0.2 k/uL (0-0.7); Eosinophils % (A) 1 %; HCT 31.3 % (39.0-53.0); Hypochromasia Marked; Lymphocytes # (A) 1.7 k/uL (1.0-4.8); Lymphocytes % (A) 13 %; MCH 30.1 pg (25.0-35.0); MCHC 31.1 g/dL (31.0-37.0); MCV 96.9 fL (80.0-100.0); Mean Platelet Volume 6.7; Monocytes # (A) 0.6 k/uL (0-1.0); Monocytes % (A) 5 %; Neutrophils # (A) 10.6 k/uL (1.3-7.7); Neutrophils % (A) 80 %; Poikilocytosis Slight; RBC 3.23 m/uL (4.30-5.90); RDW 15.3 % (11.5-15.5); WBC 13.2 k/uL (3.8-10.6)
[2020-03-07 14:32] LABS: HGB 9.7 gm/dL (13.0-17.5)
[2020-03-07 14:33] LABS: Platelet Count 899 k/uL (150-450)
[2020-03-07 14:50] LABS: ALT 61 U/L (4-49); AST 47 U/L (17-59); African American GFR (CKD) 76 (>60 ml/min/1.73 sqM); Albumin 3.8 g/dL (3.5-5.0); Albumin/Globulin Ratio 1.3; Alkaline Phosphatase 91 U/L (38-126); Anion Gap 7 mmol/L; Blood Urea Nitrogen 13 mg/dL (9-20); Carbon Dioxide 26 mmol/L (22-30); Chloride 104 mmol/L (98-107); Globulin 2.9 g/dL; Glucose 113 mg/dL (74-99); Non-African American GFR(CKD) 66 (>60 ml/min/1.73 sqM); Sodium 137 mmol/L (137-145); Total Bilirubin 0.7 mg/dL (0.2-1.3); Total Protein 6.7 g/dL (6.3-8.2)
== END | disposition home or self-care (01) ==
LOC: LABWHC1 12:25
PROVIDERS: ATTEND Nurse Practitioner Acute Care
DX: Z09 Encounter for follow-up examination after completed treatment for conditions other than malignant neoplasm (principal); Z98.890 Other specified postprocedural states
CPT/HCPCS: 36415; 80053; 85025

== ENCOUNTER 2022-05-02 10:45 | Observation (INO) | payer MEDICARE ==
[2022-05-02] MEDS ORDERED: SODIUM CHLORIDE 0.9% 500 ML 500 ML IV STA (10:58)
[2022-05-02] MEDS ORDERED: ASPIRIN 81 MG PO STA (10:58)
--- NOTE | 2022-05-02 11:13 | ED ---
General Adult HPI - General Chief complaint: Chest Pain Stated complaint: racing heart Time Seen by Provider: 05/02/22 10:54 Source: patient Mode of arrival: ambulatory Limitations: no limitations - History of Present Illness Initial comments: This is a nontoxic-appearing 71-year-old male that presents ambulatory to the emergency room with intermittent chest pain and shortness of breath. Patient states this has been ongoing since April 20 progressively getting worse. Seen Dr. Hensley yesterday who recommended he come to the emergency room for cardiac catheterization. Patient states he has no pain at this time or shortness of breath. No nausea vomiting diarrhea or fevers. Patient has history of coronary artery disease, hypertension and VA. Last cardiac catheterization was 2019. Did take eliquis today which he takes for atrial fibrillation in addition to multaq which was recently prescribed 04/13/22. -: days(s) (10) Location: chest Radiation: non-radiation Severity scale (1-10): 0 Consistency: now resolved Improves with: rest Worsens with: other (exertion) Associated Symptoms: shortness of breath Treatments Prior to Arrival: other (eliquis, multaq, sent by PCP Dr Hensley) - Related Data Home Medications Medication Instructions Recorded Confirmed Ferrous Sulfate [Iron (65 MG 65 mg PO DAILY 06/16/15 05/02/22 Elemental)] Apixaban [Eliquis] 5 mg PO BID 05/02/22 05/02/22 Losartan Potassium [Cozaar] 100 mg PO DAILY 05/02/22 05/02/22 Metoprolol Tartrate [Lopressor] 50 mg PO BID 05/02/22 05/02/22 Pantoprazole Sodium [Protonix] 40 mg PO DAILY 05/02/22 05/02/22 Spironolactone [Aldactone] 25 mg PO DAILY 05/02/22 05/02/22 dilTIAZem HCL [dilTIAZem HCL 24Hr 120 mg PO DAILY 05/02/22 05/02/22 ER (CD)] Previous Rx's Medication Instructions Recorded Ezetimibe [Zetia] 10 mg PO HS #30 tab 02/29/20 Furosemide [Lasix] 20 mg PO DAILY #3 tab 02/29/20 Rosuvastatin Calcium [Crestor] 20 mg PO HS #30 tab 02/29/20 metFORMIN HCL [Glucophage] 500 mg PO BID #60 tab 02/29/20 Allergies Allergy/AdvReac Type Severity Reaction Status Date / Time No Known Allergies Allergy Verified 05/02/22 12:17 Review of Systems ROS Statement: Those systems with pertinent positive or pertinent negative responses have been documented in the HPI. ROS Other: All systems not noted in ROS Statement are negative. Past Medical History Past Medical History: Coronary Artery Disease (CAD), Cancer, Diabetes Mellitus, GI Bleed, Hyperlipidemia, Hypertension, Myocardial Infarction (VA) Additional Past Medical History / Comment(s): hx ulcer/GI bleed 2014, skin cancer Last Myocardial Infarction Date:: 06/2006 History of Any Multi-Drug Resistant Organisms: None Reported Past Surgical History: Heart Catheterization, Heart Catheterization With Stent, Hernia Repair, Orthopedic Surgery, Tonsillectomy Additional Past Surgical History / Comment(s): 3 cardiac STENTS, skin cancer removed from nose, surgery fx rt foot, Past Anesthesia/Blood Transfusion Reactions: Postoperative Nausea & Vomiting (PONV) Additional Past Anesthesia/Blood Transfusion Reaction / Comment(s): states "no problems with prior blood transfusions in 2014" Date of Last Stent Placement:: 06/13/2006 Past Psychological History: No Psychological Hx Reported Smoking Status: Former smoker Past Alcohol Use History: None Reported Past Drug Use History: None Reported - Past Family History Brother(s) Additional Family Medical History / Comment(s): pacemaker, one of his brothers in his early 40s from myocardial infarction. Father Family Medical History: Cancer Additional Family Medical History / Comment(s): stomach CA Mother Family Medical History: Congestive Heart Failure (CHF) General Exam Limitations: no limitations General appearance: alert, in no apparent distress Head exam: Present: atraumatic, normocephalic Eye exam: Present: normal appearance. Absent: scleral icterus, conjunctival injection, periorbital swelling Neck exam: Present: normal inspection, full ROM. Absent: tenderness, meningismus, lymphadenopathy Respiratory exam: Present: normal lung sounds bilaterally. Absent: respiratory distress, wheezes, rales, rhonchi, stridor, chest wall tenderness, accessory muscle use Cardiovascular Exam: Present: bradycardia GI/Abdominal exam: Present: soft. Absent: distended, tenderness, rigid Extremities exam: Present: normal capillary refill. Absent: tenderness, pedal edema, calf tenderness Back exam: Present: full ROM. Absent: tenderness, CVA tenderness (R), CVA tenderness (L), rash noted Neurological exam: Present: alert, oriented X3, normal gait Psychiatric exam: Present: normal affect, normal mood Skin exam: Present: warm, dry, normal color. Absent: rash, cyanosis, diaphoretic, petechiae, pallor Course Vital Signs 05/02/22 05/02/22 10:50 13:03 Temperature 98 F 97.4 F L Pulse Rate 50 L 44 L Respiratory 18 18 Rate Blood Pressure 115/53 123/71 O2 Sat by Pulse 98 100 Oximetry EKG Findings - EKG Results: EKG: sinus rhythm EKG shows: bradycardia (Ventricular rate 48, UT interval 0.232, QRS 0.158, QTc 0.391; first-degree AV block; left axis deviation) Medical Decision Making - Medical Decision Making Patient presents with intermittent chest pain and shortness of breath with exertion ongoing since April 20. Seen and sent by Dr. Hensley his primary care doctor for cardiac catheterization. Patient has been pain-free while in the emergency room. Patient is bradycardic with no complaints of shortness of breath, dizziness or chest pain. Patient states he does have a history of bradycardia. Was placed on multaq for afib which he started on April 13. Patient was given aspirin and IV fluids and Protonix in the emergency room. Labs show no evidence of leukocytosis, hemoglobin and hematocrit are stable, electrolytes show an elevated BUN and creatinine which patient states is aware of. States has been elevated since February and is scheduled to see a station attendant at [facility]. Troponin is negative at 0.012. Patient is currently taking eliquis. I did consider heparin however with patient is pain free, troponin is negative and patient is on eliquis. Case discussed with Dr. Jenkins and will hold Hepartin at this time and refer to cardiology. Patient will be placed in observation with cardiology consult. I did discuss admission with patient's primary Dr. Russo who was agreeable to this plan of care. Was pt. sent in by a medical professional or institution? @ Yes Dr. Hensley Did you speak to anyone other than the patient for history? @ Family Did you review nursing and triage notes? @ Agree Were old charts reviewed? @ Yes EKG previous admission Differential Diagnosis? @ MDM Differential Chest Pain: Stable Angina, Unstable Angina, STEMI, NSTEMI Aortic Dissection, Pneumothorax, Musculoskeletal, Esophageal Spasm GERD, Cholecystitis, Pancreatitis, Zoster This is not meant to be an all-inclusive list. EKG interpreted by me (3pts min.)? @ Yes X-rays interpreted by me (1pt min.)? @ Yes CT interpreted by me (1pt min.)? @ Not applicable U/S interpreted by me (1pt. min.)? @ Not applicable What testing was considered but not performed? (CT, X-rays, U/S, labs)? Why? @ Not applicable What meds were considered but not given? Why? @ Heparin was considered however patient is on eliquis. He is not having active chest pain, troponin is normal. He was given aspirin. Withholding heparin was discussed with Dr. Jenkins Did you discuss the management of the patient with other professionals? @ Primary care Dr. Russo Did you reconcile home meds? @ No Was smoking cessation discussed for >3mins.? @ Not applicable Was critical care preformed (if so, how long)? @ No Were there social determinants of health that impacted care today? How? (Homelessness, low income, unemployed, alcoholism, drug addiction, transportation, low edu. Level, literacy, decrease access to med. care, [place] [facility], rehab)? @ Not applicable Was there de-escalation of care discussed even if they declined? (Discuss DNR or withdrawal of care, Hospice)? @ No What co-morbidities impacted this encounter? (DM, HTN, Smoking, COPD, CAD, Cancer, CVA, Hep., AIDS, mental health diagnosis, sleep apnea, morbid obesity)? @ Coronary artery disease, hypertension, VA, atrial fibrillation Was patient admitted / discharged? @ Admitted Undiagnosed new problem with uncertain prognosis? @ None Drug Therapy requiring intensive monitoring for toxicity (Heparin, Nitro, Insulin, Cardizem)? @ None Were any procedures done? @ No Diagnosis/symptom? @ Chest pain Acute, or Chronic, or Acute on Chronic? @ Acute Uncomplicated (without systemic symptoms) or Complicated (systemic symptoms)? @ Uncomplicated Side effects of treatment? @ None Exacerbation, Progression, or Severe Exacerbation] @ Progression of coronary artery disease Poses a threat to life or bodily function? @ Yes, chest pain, shortness of breath, cardiology consult placed echocardiogram ordered. Serial troponins ordered - Lab Data Result diagrams: 05/02/22 11:16 05/02/22 11:16 Lab Results 05/02/22 05/02/22 05/02/22 Range/Units 11:16 11:16 11:16 WBC 8.2 (3.8-10.6) k/uL RBC 4.43 (4.30-5.90) m/uL Hgb 13.7 (13.0-17.5) gm/dL Hct 39.5 (39.0-53.0) % MCV 89.3 (80.0-100.0) fL MCH 30.9 (25.0-35.0) pg MCHC 34.6 (31.0-37.0) g/dL RDW 12.1 (11.5-15.5) % Plt Count 204 (150-450) k/uL MPV 8.2 Neutrophils % 61 % Lymphocytes % 27 % Monocytes % 6 % Eosinophils % 3 % Basophils % 1 % Neutrophils # 5.0 (1.3-7.7) k/uL Lymphocytes # 2.3 (1.0-4.8) k/uL Monocytes # 0.5 (0-1.0) k/uL Eosinophils # 0.2 (0-0.7) k/uL Basophils # 0.1 (0-0.2) k/uL PT 11.3 (9.0-12.0) sec INR 1.1 (<1.2) APTT 27.3 (22.0-30.0) sec Sodium 136 L (137-145) mmol/L Potassium 4.6 (3.5-5.1) mmol/L Chloride 105 (98-107) mmol/L Carbon Dioxide 22 (22-30) mmol/L Anion Gap 9 mmol/L BUN 25 H (9-20) mg/dL Creatinine 1.84 H (0.66-1.25) mg/dL Est GFR (CKD-EPI)AfAm 42 (>60 ml/min/1.73 sqM) Est GFR (CKD-EPI)NonAf 36 (>60 ml/min/1.73 sqM) Glucose 155 H (74-99) mg/dL Calcium 9.2 (8.4-10.2) mg/dL Magnesium 2.0 (1.6-2.3) mg/dL Total Bilirubin 0.6 (0.2-1.3) mg/dL AST 42 (17-59) U/L ALT 44 (4-49) U/L Alkaline Phosphatase 63 (38-126) U/L Troponin I (0.000-0.034) ng/mL Total Protein 7.1 (6.3-8.2) g/dL Albumin 4.5 (3.5-5.0) g/dL 05/02/22 Range/Units 11:16 WBC (3.8-10.6) k/uL RBC (4.30-5.90) m/uL Hgb (13.0-17.5) gm/dL Hct (39.0-53.0) % MCV (80.0-100.0) fL MCH (25.0-35.0) pg MCHC (31.0-37.0) g/dL RDW (11.5-15.5) % Plt Count (150-450) k/uL MPV Neutrophils % % Lymphocytes % % Monocytes % % Eosinophils % % Basophils % % Neutrophils # (1.3-7.7) k/uL Lymphocytes # (1.0-4.8) k/uL Monocytes # (0-1.0) k/uL Eosinophils # (0-0.7) k/uL Basophils # (0-0.2) k/uL PT (9.0-12.0) sec INR (<1.2) APTT (22.0-30.0) sec Sodium (137-145) mmol/L Potassium (3.5-5.1) mmol/L Chloride (98-107) mmol/L Carbon Dioxide (22-30) mmol/L Anion Gap mmol/L BUN (9-20) mg/dL Creatinine (0.66-1.25) mg/dL Est GFR (CKD-EPI)AfAm (>60 ml/min/1.73 sqM) Est GFR (CKD-EPI)NonAf (>60 ml/min/1.73 sqM) Glucose (74-99) mg/dL Calcium (8.4-10.2) mg/dL Magnesium (1.6-2.3) mg/dL Total Bilirubin (0.2-1.3) mg/dL AST (17-59) U/L ALT (4-49) U/L Alkaline Phosphatase (38-126) U/L Troponin I <0.012 (0.000-0.034) ng/mL Total Protein (6.3-8.2) g/dL Albumin (3.5-5.0) g/dL Disposition Clinical Impression: Chest pain, Bradycardia, Elevated serum creatinine Disposition: ADMITTED IP TO THIS [facility] Decision Date: 05/02/22 Decision Time: 12:00
[2022-05-02 11:27] LABS: Basophils # (A) 0.1 k/uL (0-0.2); Basophils % (A) 1 %; Eosinophils # (A) 0.2 k/uL (0-0.7); Eosinophils % (A) 3 %; HCT 39.5 % (39.0-53.0); HGB 13.7 gm/dL (13.0-17.5); Lymphocytes # (A) 2.3 k/uL (1.0-4.8); Lymphocytes % (A) 27 %; MCH 30.9 pg (25.0-35.0); MCHC 34.6 g/dL (31.0-37.0); MCV 89.3 fL (80.0-100.0); Mean Platelet Volume 8.2; Monocytes # (A) 0.5 k/uL (0-1.0); Monocytes % (A) 6 %; Neutrophils % (A) 61 %; Platelet Count 204 k/uL (150-450); RBC 4.43 m/uL (4.30-5.90); RDW 12.1 % (11.5-15.5); WBC 8.2 k/uL (3.8-10.6)
[2022-05-02 11:39] LABS: INR 1.1 (<1.2); Partial Thromboplastin Time 27.3 sec (22.0-30.0); Prothrombin Time 11.3 sec (9.0-12.0)
[2022-05-02 11:49] LABS: Albumin 4.5 g/dL (3.5-5.0); Calcium 9.2 mg/dL (8.4-10.2); Potassium 4.6 mmol/L (3.5-5.1); Total Bilirubin 0.6 mg/dL (0.2-1.3); Total Protein 7.1 g/dL (6.3-8.2)
--- NOTE | 2022-05-02 11:52 | XR ---
EXAMINATION TYPE: XR chest 2V DATE OF EXAM: 05/02/2022 COMPARISON: 02/29/2020 TECHNIQUE: PA and lateral views submitted. HISTORY: Chest pain FINDINGS: The lungs are clear and there is no pneumothorax, pleural effusion, or focal pneumonia. Postsurgica l changes involving the mediastinum. Atrophic degenerative changes in the spine. Heart size upper [place] its of normal. Arthropathy of shoulders. No overt failure. IMPRESSION: 1. No acute process.
[2022-05-02] MEDS ORDERED: ACETAMINOPHEN TAB 325 MG TAB PO PRN (12:20)
[2022-05-02] MEDS ORDERED: NALOXONE 0.4 MG/ML 1 ML VIAL IV PRN (12:20)
[2022-05-02] MEDS: PANTOPRAZOLE 40 MG/10 ML VIAL IV SCH (13:08)
[2022-05-02 16:40] LABS: Glucose,Whole Blood 106 mg/dL (70-110)
[2022-05-02] MEDS: INSULIN ASPART (NovoLOG) 100 UNIT/ML VIAL SQ SCH ×2 (17:16→20:10)
[2022-05-02 20:12] LABS: Glucose,Whole Blood 153 mg/dL (70-110)
[2022-05-02] MEDS: ATORVASTATIN 40 MG TAB PO SCH (20:24)
[2022-05-02] MEDS: APIXABAN 5 MG TAB PO SCH (20:24)
[2022-05-03 06:04] LABS: Glucose,Whole Blood 98 mg/dL (70-110)
[2022-05-03] MEDS: INSULIN ASPART (NovoLOG) 100 UNIT/ML VIAL SQ SCH ×4 (06:10→20:32)
--- NOTE | 2022-05-03 08:23 | P.CRDCN ---
History of Present Illness History of present illness: HISTORY OF PRESENTING ILLNESS With history of CAD status post CABG, diabetes mellitus type 2, prior history of GI bleed, hypertension, hyperlipidemia, paroxysmal atrial fibrillation who pres ents secondary to increased dyspnea with minimal exertion, occasional chest tightness feeling with exertion, lightheaded episodes. He has been having issues with increasing episodes of lightheadedness which appeared related to A. fib and therefore placed on antiarrhythmics with Multaq around 5 weeks ago. Unfortunately over the last 3 weeks has been having many of his symptoms. In the office 2 days ago he was noted to be bradycardic and given multitude of symptoms recommended to go to emergency department. On presentation was noted to have sinus bradycardia with heart rate 48 on EKG with left bundle branch block. He has stopped the Multaq over the last 2 days and is feeling somewhat better this morning. We did walk the patient in the halls this morning it heart rate increasing from 55 up to 75. Blood work shows white blood cell count 8.2, hemoglobin 13.7, creatinine 1.8, troponin negative 3. REVIEW OF SYSTEMS At the time of my exam: CONSTITUTIONAL: Denies fever or chills. CARDIOVASCULAR: +chest pain, +shortness of breath, no orthopnea, PND or palpitations. RESPIRATORY: Denies cough. GASTROINTESTINAL: Denies abdominal pain, diarrhea, constipation, nausea or vomiting. MUSCULOSKELETAL: Denies myalgias. NEUROLOGIC: Denies numbness, tingling or weakness. ENDOCRINE: Denies fatigue, weight change, polydipsia or polyurina. GENITOURINARY: Denies burning, hematuria or urgency with micturation. HEMATOLOGIC: Denies history of anemia or bleeding. PHYSICAL EXAMINATION Vital signs reviewed. CONSTITUTIONAL: No apparent distress. HEENT: Head is normocephalic. Pupils are equal, round. Sclerae anicteric. Mucous membranes of the mouth are moist. No JVD. No carotid bruit. CHEST EXAMINATION: Lungs are clear to auscultation. No chest wall tenderness is noted on palpation or with deep breathing. HEART EXAMINATION: Regular rate and rhythm. S1, S2 heard. No murmurs, gallops or rub. ABDOMEN: Soft, nontender. Positive bowel sounds. EXTREMITIES: 2+ peripheral pulses, no lower extremity edema and no calf tenderness. NEUROLOGIC EXAMINATION: Patient is awake, alert and oriented x3. ASSESSMENT 1. Episodes of dyspnea on exertion, lightheadedness and chest pain likely related to symptomatic bradycardia exacerbated by metoprolol and diltiazem as well as multaq 2. CAD with history of CABG 3. Hypertension 4. History of cardiomyopathy EF 40% 5. Sinus bradycardia 6. Paroxysmal atrial fibrillation 7. Acute kidney injury PLAN Many of symptoms appear related to bradycardia and metoprolol and Cardizem have been held and Multaq has been discontinued. Unclear if symptoms additionally may be related to when he is in A. fib. Patient may benefit from an A. fib ablation as an outpatient. We did walk patient in the halls with good increase in heart rate from 55 up to 75. He likely has some degree of conduction delay however no current indication for PPM. Check Cardiolite stress test and likely will not be able to reach heart rate however monitor for heart rate response and for any inducible ischemia. Check 2-D echo. If stress test and echo unrevealing and patient feeling better possible discharge later today or tomorrow. Unclear reason for acute kidney injury and may be related to bradycardia. Does not appear dehydrated. Monitor response of holding metoprolol and Cardizem. Past Medical History Past Medical History: Coronary Artery Disease (CAD), Cancer, Diabetes Mellitus, GI Bleed, Hyperlipidemia, Hypertension, Myocardial Infarction ([place]) Additional Past Medical History / Comment(s): hx ulcer/GI bleed 2014, skin cancer Last Myocardial Infarction Date:: 06/2006 History of Any Multi-Drug Resistant Organisms: None Reported Past Surgical History: Heart Catheterization, Heart Catheterization With Stent, Hernia Repair, Orthopedic Surgery, Tonsillectomy Additional Past Surgical History / Comment(s): 3 cardiac STENTS, skin cancer removed from nose, surgery fx rt foot, Past Anesthesia/Blood Transfusion Reactions: Postoperative Nausea & Vomiting (PONV) Additional Past Anesthesia/Blood Transfusion Reaction / Comment(s): states "no problems with prior blood transfusions in 2014" Date of Last Stent Placement:: 06/13/2006 Past Psychological History: No Psychological Hx Reported Smoking Status: Former smoker Past Alcohol Use History: None Reported Past Drug Use History: None Reported - Past Family History Brother(s) Additional Family Medical History / Comment(s): pacemaker, one of his brothers in his early 40s from myocardial infarction. Father Family Medical History: Cancer Additional Family Medical History / Comment(s): stomach CA Mother Family Medical History: Congestive Heart Failure (CHF) Medications and Allergies Home Medications Medication Instructions Recorded Confirmed Type Ferrous Sulfate [Iron (65 MG 65 mg PO DAILY 06/16/15 05/02/22 History Elemental)] Ezetimibe [Zetia] 10 mg PO HS #30 tab 02/29/20 05/02/22 Rx Furosemide [Lasix] 20 mg PO DAILY #3 tab 02/29/20 05/02/22 Rx Rosuvastatin Calcium [Crestor] 20 mg PO HS #30 tab 02/29/20 05/02/22 Rx metFORMIN HCL [Glucophage] 500 mg PO BID #60 tab 02/29/20 05/02/22 Rx Apixaban [Eliquis] 5 mg PO BID 05/02/22 05/02/22 History Losartan Potassium [Cozaar] 100 mg PO DAILY 05/02/22 05/02/22 History Metoprolol Tartrate [Lopressor] 50 mg PO BID 05/02/22 05/02/22 History Pantoprazole Sodium [Protonix] 40 mg PO DAILY 05/02/22 05/02/22 History Spironolactone [Aldactone] 25 mg PO DAILY 05/02/22 05/02/22 History dilTIAZem HCL [dilTIAZem HCL 24Hr 120 mg PO DAILY 05/02/22 05/02/22 History ER (CD)] Allergies Allergy/AdvReac Type Severity Reaction Status Date / Time No Known Allergies Allergy Verified 05/02/22 12:17 Physical Exam Vitals: Vital Signs Temp Pulse Pulse Pulse Resp BP BP 05/03/22 04:00 97.7 F 49 L 14 116/51 05/03/22 00:00 97.9 F 45 L 14 137/64 05/02/22 20:00 97.9 F 37 L 14 146/57 05/02/22 15:40 44 L 17 153/67 05/02/22 14:11 98.4 F 47 L 18 169/68 05/02/22 14:00 31 L 05/02/22 13:03 97.4 F L 44 L 18 123/71 05/02/22 10:50 98 F 50 L 18 115/53 Pulse Ox 05/03/22 04:00 97 05/03/22 00:00 95 05/02/22 20:00 96 05/02/22 15:40 98 05/02/22 14:11 97 05/02/22 14:00 05/02/22 13:03 100 05/02/22 10:50 98 Intake and Output 05/02/22 05/03/22 05/03/22 22:59 06:59 14:59 Other: Voiding Method Toilet Toilet # Voids 1 2 Results 05/02/22 11:16 05/02/22 11:16 Cardiac Enzymes 05/02/22 05/02/22 05/02/22 Range/Units 11:16 11:16 16:14 AST 42 (17-59) U/L Troponin I <0.012 <0.012 (0.000-0.034) ng/mL 05/02/22 Range/Units 19:13 AST (17-59) U/L Troponin I <0.012 (0.000-0.034) ng/mL Coagulation 05/02/22 Range/Units 11:16 PT 11.3 (9.0-12.0) sec APTT 27.3 (22.0-30.0) sec CBC 05/02/22 Range/Units 11:16 WBC 8.2 (3.8-10.6) k/uL RBC 4.43 (4.30-5.90) m/uL Hgb 13.7 (13.0-17.5) gm/dL Hct 39.5 (39.0-53.0) % Plt Count 204 (150-450) k/uL Comprehensive Metabolic Panel 05/02/22 Range/Units 11:16 Sodium 136 L (137-145) mmol/L Potassium 4.6 (3.5-5.1) mmol/L Chloride 105 (98-107) mmol/L Carbon Dioxide 22 (22-30) mmol/L BUN 25 H (9-20) mg/dL Creatinine 1.84 H (0.66-1.25) mg/dL Glucose 155 H (74-99) mg/dL Calcium 9.2 (8.4-10.2) mg/dL AST 42 (17-59) U/L ALT 44 (4-49) U/L Alkaline Phosphatase 63 (38-126) U/L Total Protein 7.1 (6.3-8.2) g/dL Albumin 4.5 (3.5-5.0) g/dL Current Medications Generic Name Dose Route Start Last Admin Trade Name Freq PRN Reason Stop Dose Admin Acetaminophen 650 mg 05/02/22 12:20 Acetaminophen Tab 325 Mg Tab PO Q6HR PRN Mild Pain or Fever > 100.5 Apixaban 5 mg 05/02/22 21:00 05/02/22 20:24 Apixaban 5 Mg Tab PO 5 mg BID RAPHAEL Administration Protocol Atorvastatin Calcium 40 mg 05/02/22 21:00 05/02/22 20:24 Atorvastatin 40 Mg Tab PO 40 mg HS RAPHAEL Administration Insulin Aspart 0 unit 05/02/22 17:30 05/03/22 06:10 Insulin Aspart (Novolog) 100 Unit/Ml Vial SQ Not Given ACHS RAPHAEL Protocol Naloxone HCl 0.2 mg 05/02/22 12:20 Naloxone 0.4 Mg/Ml 1 Ml Vial IV Q2M PRN Opioid Reversal Pantoprazole Sodium 40 mg 05/02/22 12:30 05/02/22 13:08 Pantoprazole 40 Mg/10 Ml Vial IV 40 mg DAILY RAPHAEL Administration Intake and Output 05/02/22 05/03/22 05/03/22 22:59 06:59 14:59 Other: Voiding Method Toilet Toilet # Voids 1 2 05/02/22 11:16 05/02/22 11:16
[2022-05-03] MEDS: APIXABAN 5 MG TAB PO SCH ×2 (09:06→20:34)
[2022-05-03] MEDS: PANTOPRAZOLE 40 MG/10 ML VIAL IV SCH (09:06)
[2022-05-03 11:41] LABS: Glucose,Whole Blood 109 mg/dL (70-110)
--- NOTE | 2022-05-03 11:46 | NM ---
EXAMINATION TYPE: NM stress cardiolite complete DATE OF EXAM: 05/03/2022 COMPARISON: NONE HISTORY: Shortness of breath TECHNIQUE: After the intravenous administration of 10.3 mCi Tc 99m Sestamibi - Rest images obtained 52 minutes post injection. The patient exercised using a MOR protocol and 1 minute prior to peak exercise was injected with 25.5 mCi Tc 99m Sestamibi - Stress images obtained 15 minutes post injecti on. FINDINGS: Targeted heart rate was achieved during performance of the study. Review of stress and rest SPECT mundo ges demonstrates extensive defect involving the inferior wall myocardium and apex of the myocardium. Small area of stress-induced reversible ischemia involving the inferior septum not excluded.. Gated analysis shows hypokinesis and reduced wall motion with an estimated left ventricular ejection fracti on of 5 %. IMPRESSION: 1. Abnormal resting ejection fraction of 25% with reduced wall motion activity correlate for LV dysfu nction. 2. Predominantly fixed defect involving the inferior wall. A small area of stress-induced reversibili ty not excluded.
[2022-05-03 16:38] LABS: Glucose,Whole Blood 107 mg/dL (70-110)
[2022-05-03 20:07] LABS: Glucose,Whole Blood 149 mg/dL (70-110)
[2022-05-03] MEDS: ATORVASTATIN 40 MG TAB PO SCH (20:34)
[2022-05-03 22:22] LABS: Potassium 4.3 mmol/L (3.5-5.1)
[2022-05-03 22:30] LABS: Basophils # (A) 0.1 k/uL (0-0.2); Basophils % (A) 1 %; Eosinophils # (A) 0.1 k/uL (0-0.7); Eosinophils % (A) 2 %; HGB 13.5 gm/dL (13.0-17.5); Lymphocytes # (A) 2.4 k/uL (1.0-4.8); Lymphocytes % (A) 30 %; MCH 30.8 pg (25.0-35.0); MCHC 34.5 g/dL (31.0-37.0); MCV 89.3 fL (80.0-100.0); Mean Platelet Volume 8.4; Monocytes # (A) 0.7 k/uL (0-1.0); Monocytes % (A) 8 %; Neutrophils # (A) 4.5 k/uL (1.3-7.7); Neutrophils % (A) 57 %; Platelet Count 192 k/uL (150-450); RBC 4.37 m/uL (4.30-5.90); RDW 12.1 % (11.5-15.5); WBC 7.8 k/uL (3.8-10.6)
--- NOTE | 2022-05-04 00:21 | HP ---
HISTORY AND PHYSICAL CHIEF COMPLAINT: Chest pain. HISTORY OF PRESENT ILLNESS: This gentleman was supposed to have a cardiac cath yesterday and missed the appointment. He was having chest pain and Cardiology instructed him to come to the hospital. REVIEW OF SYSTEMS: He has had no diaphoresis, syncope, nausea, vomiting, etc. Past medical history, family history, personal and social histories are otherwise essentially unremarkable. He does have coronary artery disease and has had a stent placed in the right coronary artery in the past after having an inferior myocardial infarction. MEDICATIONS: Include, 1. Rosuvastatin. 2. Ezetimibe. 3. Eliquis. 4. Metoprolol. 5. Spironolactone. 6. Pantoprazole. 7. Metformin. 8. Losartan. 9. Furosemide. 10.Diltiazem. 11.Iron. ALLERGIES: Not allergic to any medications. SOCIAL HISTORY: He has not smoked in years. PHYSICAL EXAMINATION: VITAL SIGNS: Blood pressure is 124/76 with a pulse of 82, respirations of 32, and he is afebrile. GENERAL: He appeared to be well developed, well nourished, no acute distress. SKIN: Color is normal. Skin is warm and dry. HEAD, EARS, EYES, NOSE, MOUTH AND THROAT: Normal. NECK: Neck veins are not distended. Carotids are normal. CHEST: Clear. CARDIAC: Normal. ABDOMEN: Soft and nontender. EXTREMITIES: Normal. NEUROLOGICAL: Intact. ASSESSMENT: He is admitted to the hospital with diagnoses of: 1. Unstable angina pectoris. 2. Known coronary artery disease. PLAN: 1. Bed rest. 2. Consult Cardiology, who will take him to the field laborer. NIKKIE / RABIA: [id number] /
--- NOTE | 2022-05-04 03:11 | PN ---
PROGRESS NOTE DATE OF SERVICE: 05/03/2022 CHIEF COMPLAINT: Coronary artery disease. HISTORY OF PRESENT ILLNESS: This gentleman is going for cardiac cath today. It is noted that his GFR was only 20. REVIEW OF SYSTEMS: He feels fine. He did not have any chest pain, shortness of breath, dizziness, etc. PHYSICAL EXAMINATION: CHEST: Clear. CARDIAC: Normal. ABDOMEN: Soft, nontender. EXTREMITIES: Normal. IMPRESSION: Coronary artery disease. PLAN: 1. Cardiac cath today and then reassess. 2. Poor cardiac output likely due to atherosclerotic disease. MMODL / IJN: [id number] /
[2022-05-04 06:09] LABS: Glucose,Whole Blood 108 mg/dL (70-110)
[2022-05-04] MEDS: INSULIN ASPART (NovoLOG) 100 UNIT/ML VIAL SQ SCH ×2 (06:22→12:35)
[2022-05-04] MEDS: APIXABAN 5 MG TAB PO SCH (07:45)
[2022-05-04] MEDS: PANTOPRAZOLE 40 MG/10 ML VIAL IV SCH (08:27)
--- NOTE | 2022-05-04 09:35 | CA ---
Exercise Stress Test Report Name: Joni Caldera Exam Date: 05/03/2022 10:02 Exam Location: [place] Stress Ht (in): 70 Wt (lb): 220 BSA: 2.17 Ordering Phys: Adrian Hensley DO Referring Phys: CHLOE,, Technologist: Nikole Marrufo RDCS Age: 71 Gender: M : 1950 Procedure CPT: Indications: Reflex order-Stress test ICD-10 Codes: Patient History: CP, ESTELLA, ANGINA, NV, CATH, CABG Medications: Meds past 24 hrs: Pretest Chest Pain: STRESS TEST Gaston Protocol Exercise Duration (min:sec): 08:[address] Depressions (mm): Angina Score: Palomo Score: Resting HR (bpm): 56 Peak HR (bpm): 135 Resting BP (mmHg): 166 / 63 Peak BP (mmHg): 222 / 64 MPHR: 150 Target HR: 128 % MPHR: 90 METS: 9.5 Total Dose: Peak Dose: Atropine: Double Product: 24880 BP Response: Stress Termination: Reached target heart rate Stress Symptoms: Stress Summary: ECG ANALYSIS Resting ECG: Stress ECG: CONCLUSIONS Excellent exercise tolerance Non-diagnostic electrocardiogram stress testing due to the patient baseline EKG showing LBBB Dr. Gabriel Ramsey MD (Electronically Signed) Final Date: 04 May 2022 09:34
[2022-05-04 09:42] LABS: Basophils # (A) 0.1 k/uL (0-0.2); Basophils % (A) 1 %; Eosinophils # (A) 0.1 k/uL (0-0.7); Eosinophils % (A) 1 %; HCT 43.6 % (39.0-53.0); Lymphocytes # (A) 2.3 k/uL (1.0-4.8); Lymphocytes % (A) 22 %; MCH 30.6 pg (25.0-35.0); MCHC 34.4 g/dL (31.0-37.0); MCV 89.2 fL (80.0-100.0); Mean Platelet Volume 8.4; Monocytes # (A) 0.7 k/uL (0-1.0); Monocytes % (A) 6 %; Neutrophils # (A) 7.4 k/uL (1.3-7.7); Neutrophils % (A) 68 %; Platelet Count 223 k/uL (150-450); RBC 4.89 m/uL (4.30-5.90); RDW 12.2 % (11.5-15.5); WBC 10.8 k/uL (3.8-10.6)
[2022-05-04 09:58] LABS: Calcium 9.4 mg/dL (8.4-10.2); Potassium 4.8 mmol/L (3.5-5.1)
--- NOTE | 2022-05-04 11:20 | P.PN ---
Subjective HISTORY OF PRESENTING ILLNESS With history of CAD status post CABG, diabetes mellitus type 2, prior history of GI bleed, hypertension, hyperlipidemia, paroxysmal atrial fibrillation who presents secondary to increased dyspnea with minimal exertion, occasional chest tightness feeling with exertion, lightheaded episodes. He has been having issues with increasing episodes of lightheadedness which appeared related to A. fib and therefore placed on antiarrhythmics with Multaq around 5 weeks ago. Unfortunately over the last 3 weeks has been having many of his symptoms. In the office 2 days ago he was noted to be bradycardic and given multitude of symptoms recommended to go to emergency department. On presentation was noted to have sinus bradycardia with heart rate 48 on EKG with left bundle branch block. He has stopped the Multaq over the last 2 days and is feeling somewhat better this morning. We did walk the patient in the halls this morning it heart rate increasing from 55 up to 75. Blood work shows white blood cell count 8.2, hemoglobin 13.7, creatinine 1.8, troponin negative 3. 05/04 Patient seen and examined. Patient underwent Cardilate stress test where he exercised for 8 minutes with good increase in heart rate. He admits that since stopping the metoprolol, Cardizem and multaq 1 much better. He denies any chest pain or pressure. Denies any lightheadedness. His creatinine has improved to 1.4. The losartan and Aldactone have been held. Stress test showed questionable inferior reversibility however on personal review appears small fixed area with no reversibility. Also mentioned EF 25% however not as accurate as echo. Echo reviewed with EF appearing 35-40% similar to his baseline. PHYSICAL EXAMINATION Vital signs reviewed. CONSTITUTIONAL: No apparent distress. HEENT: Head is normocephalic. Pupils are equal, round. Sclerae anicteric. Mucous membranes of the mouth are moist. No JVD. No carotid bruit. CHEST EXAMINATION: Lungs are clear to auscultation. No chest wall tenderness is noted on palpation or with deep breathing. HEART EXAMINATION: Regular rate and rhythm. S1, S2 heard. No murmurs, gallops or rub. ABDOMEN: Soft, nontender. Positive bowel sounds. EXTREMITIES: 2+ peripheral pulses, no lower extremity edema and no calf tenderness. NEUROLOGIC EXAMINATION: Patient is awake, alert and oriented x3. ASSESSMENT 1. Episodes of dyspnea on exertion, lightheadedness and chest pain likely related to symptomatic bradycardia exacerbated by metoprolol and diltiazem as well as multaq 2. CAD with history of CABG 3. Hypertension 4. History of cardiomyopathy EF 40% 5. Sinus bradycardia 6. Paroxysmal atrial fibrillation 7. Acute kidney injury PLAN Symptoms mainly appear related to over medication and appears much better after stopping the metoprolol, Cardizem and Multaq. Additionally spironolactone and losartan were held secondary to acute kidney injury. Creatinine improved and we will restart low-dose heart failure regimen with losartan 12.5 mg, Aldactone 12.5 mg and Toprol 12.5 mg daily. Patient is stable for discharge home today with outpatient follow-up in 1 week. If further rhythm issues, may consider ablation. Objective - Vital Signs Vital signs: Vital Signs Temp 98.6 F 05/04/22 08:00 Pulse 77 05/04/22 08:00 Resp 15 05/04/22 08:00 BP 137/68 05/04/22 08:00 Pulse Ox 96 05/04/22 08:00 FiO2 Intake & Output 05/03/22 05/04/22 05/04/22 18:59 06:59 18:59 Intake Total 360 180 580 Balance 360 180 580 Intake: Oral 360 180 580 Other: Voiding Method Toilet Toilet Toilet # Voids 1 2 2 - Labs CBC & Chem 7: 05/04/22 09:03 05/04/22 09:03 Labs: Abnormal Lab Results - Last 24 Hours (Table) 05/03/22 05/03/22 05/04/22 Range/Units 20:05 21:47 09:03 WBC 10.8 H (3.8-10.6) k/uL Sodium 134 L (137-145) mmol/L Creatinine 1.63 H (0.66-1.25) mg/dL Glucose 132 H (74-99) mg/dL POC Glucose (mg/dL) 149 H (70-110) mg/dL 05/04/22 Range/Units 09:03 WBC (3.8-10.6) k/uL Sodium (137-145) mmol/L Creatinine 1.46 H (0.66-1.25) mg/dL Glucose 118 H (74-99) mg/dL POC Glucose (mg/dL) (70-110) mg/dL
[2022-05-04] MEDS ORDERED: LOSARTAN 25 MG TAB PO SCH (11:30)
[2022-05-04] MEDS ORDERED: METOPROLOL SUCCINATE (ER) 25 MG TAB.ER.24H PO SCH (11:30)
[2022-05-04 11:50] LABS: Glucose,Whole Blood 103 mg/dL (70-110)
[2022-05-04 12:33] VITALS: BP 140/60; PULSE 66; RESP 16; TEMP 97.9
[2022-05-04] MEDS ORDERED: APIXABAN 5 MG TAB PO SCH (14:34)
[2022-05-05] MEDS ORDERED: SPIRONOLACTONE 25 MG TAB PO SCH (09:00)
--- NOTE | 2022-05-08 01:19 | DS ---
DISCHARGE SUMMARY CHIEF COMPLAINT: Chest pain and coronary artery disease. HISTORY OF PRESENT ILLNESS AND PHYSICAL EXAMINATION: Could be found in the admitting workup. COURSE IN THE HOSPITAL: After admission, he was placed on bedrest. He was taken to the general labor forklift operator, and it was thought that he would require stenting. However, this was not necessary. It was determined that his chest pain may have been due to bradycardia related to his beta jigna treatment. The dosage was dropped back, and he is doing well, felt he could be discharged on the . He will go home and to be followed up in the office next week. FINAL DIAGNOSES: 1. Angina pectoris. 2. Coronary artery disease. 3. Iatrogenic bradycardia. OPERATIONS: Cardiac cath. CONSULTATIONS: Cardiology. He is improved. MMANJU / STEVEN: [id number] /
--- NOTE | 2022-05-08 11:47 | CA ---
Transthoracic Echo Report Name: Joni Caldera Age: 71 Gender: M : 1950 Exam Date: 05/02/2022 14:59 Exam Location: [facility] Ht (in): 70 Wt (lb): 220 Ordering Physician: Andrew Anaya Attending/Referring Phys: National [employer] Officer Anabela Kaye RDCS Procedure CPT: Indications: chest pain with shortness of breath exertion Cardiac Hx: Technical Quality: Technically difficult study Contrast 1: Lumason Total Dose (mL): 4 Contrast 2: Total Dose (mL): MEASUREMENTS (Male / Female) Normal Values 2D ECHO LV Diastolic Diameter PLAX 5.1 cm 4.2 - 5.9 / 3.9 - 5.3 cm LV Systolic Diameter PLAX 4.1 cm IVS Diastolic Thickness 1.4 cm 0.6 - 1.0 / 0.6 - 0.9 cm LVPW Diastolic Thickness 1.3 cm 0.6 - 1.0 / 0.6 - 0.9 cm LV Relative Wall Thickness 0.5 LV Diastolic Volume MOD BP 203.4 cm??? 67 - 155 / 56 - 104 cm??? LV Systolic Volume MOD BP 106.5 cm??? 22 - 58 / 19 - 49 cm??? LV Ejection Fraction MOD BP 47.6 % >= 55 % LV Cardiac Index MOD BP 1809.7 cm???/min???m??? LV Diastolic Volume MOD 4C 166.6 cm??? LV Systolic Volume MOD 4C 88.2 cm??? LV Ejection Fraction MOD 4C 47.1 % LV Cardiac Index MOD 4C 1463.9 cm???/min???m??? LV Diastolic Length 4C 9.0 cm LV Systolic Length 4C 8.6 cm LV Diastolic Volume MOD 2C 231.5 cm??? LV Systolic Volume MOD 2C 126.7 cm??? LV Ejection Fraction MOD 2C 45.3 % LV Cardiac Index MOD 2C 1957.3 cm???/min???m??? LV Diastolic Length 2C 9.7 cm LV Systolic Length 2C 8.8 cm LA Volume 57.7 cm??? 18 - 58 / 22 - 52 cm??? M-MODE Aortic Root Diameter MM 2.8 cm LA Systolic Diameter MM 4.3 cm LA Ao Ratio MM 1.5 AV Cusp Separation MM 1.8 cm DOPPLER AV Peak Velocity 241.8 cm/s AV Peak Gradient 23.4 mmHg AV Mean Velocity 158.4 cm/s AV Mean Gradient 11.3 mmHg AV Velocity Time Integral 62.7 cm LVOT Peak Velocity 123.4 cm/s LVOT Peak Gradient 6.1 mmHg LVOT Velocity Time Integral 32.6 cm MV Area PHT 2.3 cm??? Mitral E Point Velocity 122.0 cm/s Mitral A Point Velocity 103.3 cm/s Mitral E to A Ratio 1.2 MV Deceleration Time 334.9 ms TR Peak Velocity 243.7 cm/s TR Peak Gradient 23.8 mmHg Right Ventricular Systolic Press 28.8 mmHg FINDINGS Left Ventricle Mildly increased septal wall thickness. Severely increased left ventricular diastolic volume. Severely increased left ventricular systolic volume. Mildly decreased left ventricular ejection fraction. Left ventricular ejection fraction is estimated at 45-50 %. Right Ventricle Severe right ventricular dilatation. Right ventricular systolic pressure within normal limits. Right Atrium Right atrium not well visualized. Left Atrium Mild left atrial dilatation. Mitral Valve Mild to Moderate mitral regurgitation.mitral annular calcification. Aortic Valve No aortic valve stenosis or regurgitation.aortic valve sclerosis. Tricuspid Valve Structurally normal tricuspid valve. Mild tricuspid regurgitation. Pulmonic Valve Pulmonic valve not well visualized. Pericardium No pericardial effusion. Aorta Normal size aortic root and proximal ascending aorta. CONCLUSIONS 1. Mildly impaired systolic function of the left ventricle with mild inferoseptal hypokinesis 2. [id number] mitral was mild tricuspid regurgitation. Previewed by: Dr. Lionel Charles MD (Electronically Signed) Final Date: 08 May 2022 11:47
== END 2022-05-04 16:11 | disposition home or self-care (01) ==
LOC: EC 10:45 → 6NMEDSUR 12:40 → 3SCARD 15:16
PROVIDERS: ADMIT Family Medicine; ATTEND Family Medicine
DX: I25.110 Atherosclerotic heart disease of native coronary artery with unstable angina pectoris (principal); N17.9 Acute kidney failure, unspecified; R00.1 Bradycardia, unspecified; I11.9 Hypertensive heart disease without heart failure; I43 Cardiomyopathy in diseases classified elsewhere; I48.0 Paroxysmal atrial fibrillation; I44.7 Left bundle-branch block, unspecified; I08.1 Rheumatic disorders of both mitral and tricuspid valves; E11.9 Type 2 diabetes mellitus without complications; I44.0 Atrioventricular block, first degree; E78.5 Hyperlipidemia, unspecified; I25.2 Old myocardial infarction; Z79.01 Long term (current) use of anticoagulants; Z79.84 Long term (current) use of oral hypoglycemic drugs; Z79.899 Other long term (current) drug therapy; Z95.1 Presence of aortocoronary bypass graft; Z87.19 Personal history of other diseases of the digestive system; Z87.891 Personal history of nicotine dependence; Z85.828 Personal history of other malignant neoplasm of skin; Z95.5 Presence of coronary angioplasty implant and graft; Z98.890 Other specified postprocedural states; Z80.0 Family history of malignant neoplasm of digestive organs; Z82.49 Family history of ischemic heart disease and other diseases of the circulatory system
CPT/HCPCS: 96376 ×2; 96361; 96374; 99285; 36415; 93005; 93017; 80053; 80048 ×2; 83735; 84484; 85025 ×3; 85610; 85730; 71046; 78452; G0378 ×4; C8929; A9500; C9113 ×3; Q9950; 93306